=== PATIENT | female | born 1940 | race African-American/Black ===

== ENCOUNTER → 2016-09-12 | Outpatient (CLI) | payer MEDICARE, OTHER ==
[2015-04-11 15:41] VITALS: BP 175/84
[~2016-09-12] MED LIST: ALLO100T PO; ASPI-482 PO; ASPI81TA9 PO; Aspirin PO; CALCITROL; CRESTOR5 MG PO; DOCU100C PO; DULO60CA6 PO; EZET10TA3 PO; FERR325T31 PO; FURO-68 PO; FURO40SO PO; HYDR-2762 PO; Hydralazine Hcl PO; ISOS120T2 PO; LABE100T3 PO; LOSA50TA6 PO; RANI300C PO; TRAZ50TA15 PO
--- NOTE | 2016-09-12 10:09 | KCIC ---
Two-view chest. Indication:Reason For StudyReason: CHRONIC COUGH / Spl. Instructions: / History: FINDINGS: Heart size is normal. Pulmonary vasculature is within normal limits. No pleural effusion or consolidating infiltrate. No pneumothorax. The thoracic aorta appears tortuous. IMPRESSION: No evidence for heart failure or pneumonia. Electronically signed by: Sergio Lane (Sep 12, 2016 10:08:13)
== END | disposition home or self-care (01) ==
LOC: KCIC 09:30
PROVIDERS: ATTEND Family Medicine
DX: R05 Cough (principal)
CPT/HCPCS: 71020

== ENCOUNTER 2016-09-29 17:10 | Inpatient (IN) | payer MEDICARE, OTHER ==
[~2016-09-29] VITALS: Ht 170.2 cm; Wt 80.9 kg
--- NOTE | 2016-09-29 17:32 | ED.ADGEN ---
Past Medical History Past Medical History: COPD, Diabetes-Type II, High Cholesterol, Heart Disease, Hypertension, Renal Disease Past Surgical History: Knee Replacement Additional Past Surgical Histo: bilat knee, R FA nerve graft Alcohol Use: None Drug Use: None Adult General Chief Complaint Chief Complaint: NEURO SYMPTOMS/DEFICITS HPI HPI Patient is a 76 year old female brought to emergency department by EMS as a code stroke. At 4:50 PM (20 min prior to arrival in the ED) the patient was at home getting her hair braided when she suddenly fell over forward unresponsive. EMS reports initially she was unresponsive except for to painful stimuli but them. She has been slowly becoming more alert. At the point of my interview the patient will follow directions. She will also shrug her shoulders and shake her head yes or no. She makes no attempt at speech. She was taken immediately to CT upon arrival. Review of Systems Review of Systems Constitutional: Denies fever or chills. [] Eyes: Denies change in visual acuity. [] HENT: Denies nasal congestion or sore throat. [] Respiratory: Denies cough or shortness of breath. [] Cardiovascular: Denies chest pain or edema. [] GI: Denies abdominal pain, nausea, vomiting, bloody stools or diarrhea. [] : Denies dysuria. [] Musculoskeletal: Denies back pain or joint pain. [] Integument: Denies rash. [] Neurologic: Denies headache, focal weakness or sensory changes. [] Endocrine: Denies polyuria or polydipsia. [] Lymphatic: Denies swollen glands. [] Psychiatric: Denies depression or anxiety. [] Current Medications Current Medications Current Medications Medications (Trade) Dose Ordered Sig/Wilberto Start Time Stop Time Status Last Admin Dose Admin Aspirin (Children'S Aspirin) 324 mg 1X ONCE 09/29/16 18:00 09/29/16 18:01 DC 09/29/16 18:00 324 MG Sodium Chloride (Iv Sodium Chloride 0.9% 1000ml Bag) 1,000 ml @ 1,000 mls/hr Q1H 09/29/16 17:45 09/29/16 18:44 DC 09/29/16 18:00 1,000 MLS/HR Allergies Allergies Allergies Coded Allergies Type Severity Reaction Last Updated Verified lisinopril Allergy Intermediate COUGH 03/12/14 Yes Physical Exam Physical Exam Constitutional: Well developed, well nourished, no acute distress, non-toxic appearance. [] HENT: Normocephalic, atraumatic, bilateral external ears normal, oropharynx moist, no oral exudates, nose normal. [] Eyes: PERRLA, EOMI, conjunctiva normal, no discharge. [] Neck: Normal range of motion, no tenderness, supple, no stridor. [] Cardiovascular:Heart rate regular rhythm, no murmur [] Lungs & Thorax: Bilateral breath sounds clear to auscultation [] Abdomen: Bowel sounds normal, soft, no tenderness, no masses, no pulsatile masses. [] Skin: Warm, dry, no erythema, no rash. [] Back: No tenderness, no CVA tenderness. [] Extremities: No tenderness, no cyanosis, no clubbing, ROM intact, no edema. [] Neurologic: Alert, patient has varying degrees and locations of flaccidness. Initially she had complete right-sided paralysis but shortly after arrival that switch to a left-sided paralysis. Patient makes no attempt at speech does follow directions and will shake her head and from her shoulders in response to my questions. [] Psychologic: Affect normal, judgement normal, mood normal. [] Current Patient Data Vital Signs Vital Signs Date Time Temp Pulse Resp B/P Pulse Ox O2 Delivery O2 Flow Rate FiO2 09/29/16 17:41 67 20 134/73 98 Room Air 09/29/16 17:10 98.6 98.6 Lab Values Laboratory Tests Test 09/29/16 17:25 White Blood Count 5.8x10^3/uL (4.0-11.0) Red Blood Count 4.45x10^6/uL (3.50-5.40) Hemoglobin 11.4g/dL (12.0-15.5) L Hematocrit 35.9% (36.0-47.0) L Mean Corpuscular Volume 81fL (79-100) Mean Corpuscular Hemoglobin 26pg (25-35) Mean Corpuscular Hemoglobin Concent 32g/dL (31-37) Red Cell Distribution Width 13.7% (11.5-14.5) Platelet Count 149x10^3/uL (140-400) Neutrophils (%) (Auto) 53% (31-73) Lymphocytes (%) (Auto) 28% (24-48) Monocytes (%) (Auto) 12% (0-9) H Eosinophils (%) (Auto) 7% (0-3) H Basophils (%) (Auto) 1% (0-3) Neutrophils # (Auto) 3.1x10^3uL (1.8-7.7) Lymphocytes # (Auto) 1.6x10^3/uL (1.0-4.8) Monocytes # (Auto) 0.7x10^3/uL (0.0-1.1) Eosinophils # (Auto) 0.4x10^3/uL (0.0-0.7) Basophils # (Auto) 0.0x10^3/uL (0.0-0.2) Prothrombin Time 13.8SEC (11.7-14.0) Prothrombin Time INR 1.1 (0.8-1.1) PTT 30SEC (24-38) Sodium Level 144mmol/L (136-145) Potassium Level 3.1mmol/L (3.5-5.1) L Chloride Level 104mmol/L (98-107) Carbon Dioxide Level 31mmol/L (21-32) Anion Gap 9 (6-14) Blood Urea Nitrogen 15mg/dL (7-20) Creatinine 1.9mg/dL (0.6-1.0) H Estimated GFR (Cockcroft-Gault) 31.1 BUN/Creatinine Ratio 8 (6-20) Glucose Level 97mg/dL (70-99) Calcium Level 10.2mg/dL (8.5-10.1) H Total Bilirubin 0.5mg/dL (0.2-1.0) Aspartate Amino Transferase (AST) 16U/L (15-37) Alanine Aminotransferase (ALT) 16U/L (14-59) Alkaline Phosphatase 52U/L (46-116) Troponin I Quantitative < 0.017ng/mL (0.000-0.055) Total Protein 7.4g/dL (6.4-8.2) Albumin 3.5g/dL (3.4-5.0) Albumin/Globulin Ratio 0.9 (1.0-1.7) L Laboratory Tests 09/29/16 17:25 Laboratory Tests 09/29/16 17:25 EKG EKG EKG interpreted by me, normal sinus rhythm, 68 beats for minute, leftward axis, no ST segment elevation, ST depression in V3, V4, V5, and V6. There is no significant change when compared with previous EKG of May 2014 [] Radiology/Procedures Radiology/Procedures Chest x-ray interpreted by me, no acute cardiopulmonary process. PROCEDURE CT of the head without contrast HISTORY Code stroke. Unresponsive. TECHNIQUE Standard noncontrast images are obtained. Exposure: One or more of the following individualized dose reduction techniques were utilized for this exam: 1. Automated exposure control. 2. Adjustment of the mA and/or kV according to patient size. 3. Use of iterative reconstruction technique. COMPARISON Prior study not available for review. FINDINGS No evidence of acute intracranial hemorrhage or abnormal extra-axial fluid collection. No mass effect or midline shift There is generalized enlargement of ventricles and sulci compatible with atrophy. White matter low density bilaterally, and some low density in the vel, is typically due to chronic small vessel ischemic disease in a patient of this age. The orbits appear unremarkable. The partially visualized sinuses are clear. No evidence of a depressed skull fracture. There are intracranial arterial calcifications. IMPRESSION 1. No evidence of acute intracranial abnormality. 2. Generalized atrophy. 3. White matter disease, is typically due to chronic small vessel ischemia. 4. Critical results communicated by telephone to Dr. Braun at 1747 hours on September 29, 2016. Electronically signed by: Brayan Blackwood MD (Sep 29, 2016 17:40:59) DICTATED and SIGNED BY: BRAYAN BLACKWOOD MD DATE: 09/29/16 1740 CC: JOSE A FOREMAN; GOLDIE BRAUN MD ~[] Course & Med Decision Making Course & Med Decision Making Pertinent Labs and Imaging studies reviewed. (See chart for details) 1720 - patient's deficits have changed from the right side to the left side. She maintains right-sided weakness but is weaker on the left. Her NIH H scan with the exception of being consciousness is almost smith-positive with a score of 26. Awaiting CT results. 1900 - all the patient's deficits have completely resolved. Patient cannot explain to me what happened other than to state that she felt warm and then did not know what was going on. She does seem to still have a little bit of confusion but I also suspect she may be holding back a bit. I suspect there is an emotional or perhaps psychological component to what happened today. She is also displaying some signs of possible dementia with difficulty remembering names of family and friends that come into the room. Initially she was demanding to be discharged home. However, she does have an equivocal urinary tract infection and did have significant deficits upon arrival. Consequent I, we will give her dose of Rocephin and admitted to the hospital. 1945 - I spoke with Dr. Mcknight who is covering for Dr. Peter regarding admission. [] Dragon Disclaimer Dragon Disclaimer This electronic medical record was generated, in whole or in part, using a voice recognition dictation system. GOLDIE BRAUN MD Sep 29, 2016 17:32
[2016-09-29 17:39] LABS: BASO % 1 % (0-3); EOS % 7 % (0-3); HEMATOCRIT 35.9 % (36.0-47.0); HEMOGLOBIN 11.4 g/dL (12.0-15.5); LYMPH # 1.6 x10^3/uL (1.0-4.8); LYMPH % 28 % (24-48); MEAN CORPUSCULAR HEMOGLOBIN 26 pg (25-35); MEAN CORPUSCULAR HGB CONC 32 g/dL (31-37); MEAN CORPUSCULAR VOLUME 81 fL (79-100); MONO % 12 % (0-9); NEUT % 53 % (31-73); PLATELET COUNT 149 x10^3/uL (140-400); RED BLOOD COUNT 4.45 x10^6/uL (3.50-5.40); RED CELL DISTRIBUTION WIDTH 13.7 % (11.5-14.5); WHITE BLOOD COUNT 5.8 x10^3/uL (4.0-11.0)
--- NOTE | 2016-09-29 17:42 | RAD ---
PROCEDURE CT of the head without contrast HISTORY Code stroke. Unresponsive. TECHNIQUE Standard noncontrast images are obtained. Exposure: One or more of the following individualized dose reduction techniques were utilized for this exam: 1. Automated exposure control. 2. Adjustment of the mA and/or kV according to patient size. 3. Use of iterative reconstruction technique. COMPARISON Prior study not available for review. FINDINGS No evidence of acute intracranial hemorrhage or abnormal extra-axial fluid collection. No mass effect or midline shift There is generalized enlargement of ventricles and sulci compatible with atrophy. White matter low density bilaterally, and some low density in the vel, is typically due to chronic small vessel ischemic disease in a patient of this age. The orbits appear unremarkable. The partially visualized sinuses are clear. No evidence of a depressed skull fracture. There are intracranial arterial calcifications. IMPRESSION 1. No evidence of acute intracranial abnormality. 2. Generalized atrophy. 3. White matter disease, is typically due to chronic small vessel ischemia. 4. Critical results communicated by telephone to Dr. Braun at 1747 hours on September 29, 2016. Electronically signed by: Brayan Blackwood MD (Sep 29, 2016 17:40:59)
[2016-09-29 17:45] LABS: INR 1.1 (0.8-1.1); PROTHROMBIN TIME PATIENT 13.8 SEC (11.7-14.0)
[2016-09-29] MEDS ORDERED: IV NORMAL SALINE 1000ML BAG 1,000 ML IV SCH (17:45)
--- NOTE | 2016-09-29 17:46 | EKG ---
[facility] [address] [place] [address] Test Date: 2016-09-29 Test Time: 17:35:00 Pat Name: LANETTE KING Department: Room: Gender: F Clinical Lab Specialist: : 1940 Requested By: GOLDIE VARNER Order Number: [id number] Reading MD: Measurements Intervals [place] Rate: 68 P: 39 MO: 216 QRS: -6 QRSD: 120 T: 169 QT: 428 QTc: 455 Interpretive Statements SINUS RHYTHM LEFTWARD AXIS QRS(T) CONTOUR ABNORMALITY CONSISTENT WITH ANTEROSEPTAL INFARCT AGE UNDETERMINED ST & T ABNORMALITY, CONSIDER ANTEROLATERAL ISCHEMIA OR LEFT VENTRICULAR STRAIN T ABNORMALITY IN ANTERIOR LEADS INFEROLATERAL LEADS ABNORMAL ECG RI6.01 No previous ECG available for comparison
[2016-09-29] MEDS ORDERED: ASPIRIN CHEWABLE 81 MG TABLET. PO ONE (18:00)
[2016-09-29 18:04] LABS: CALCIUM 10.2 mg/dL (8.5-10.1); CREATININE 1.9 mg/dL (0.6-1.0); GFR 31.1; POTASSIUM 3.1 mmol/L (3.5-5.1)
[2016-09-29 18:10] LABS: ALBUMIN 3.5 g/dL (3.4-5.0); ALBUMIN/GLOBULIN RATIO 0.9 (1.0-1.7); TOTAL BILIRUBIN 0.5 mg/dL (0.2-1.0); TOTAL PROTEIN 7.4 g/dL (6.4-8.2)
[2016-09-29 18:24] LABS: BILIRUBIN,URINE NEGATIVE (NEG); GLUCOSE,URINE NEGATIVE (NEG); NITRITE,URINE NEGATIVE (NEG); PH,URINE 5.5; PROTEIN,URINE NEGATIVE (NEG-TRACE); UROBILINOGEN,URINE 0.2 mg/dL (0.2 mg/dL)
[2016-09-29 18:32] LABS: BARBITURATES NEG (NEG); BENZODIAZEPINES NEG (NEG); CANNABINOIDS NEG (NEG); COCAINE NEG (NEG); ETHANOL, URINE NEG (NEG); METHADONE NEG (NEG); OPIATES NEG (NEG); PHENCYCLIDINE NEG (NEG)
[2016-09-29 18:44] LABS: BACTERIA,URINE MANY /HPF (0-FEW); RBC,URINE 0 /HPF (0-2); SQUAMOUS EPITHELIAL CELL,UR FEW /LPF
[2016-09-29] MEDS ORDERED: CEFTRIAXONE 1GM IVPB FOR OMNI 50 ML IV ONE (19:15)
--- NOTE | 2016-09-29 19:42 | ACF ---
Admission Forms Criteria NEUROLOGY GRG Clinical Indications for Admission to Inpatient Care (Place ' X' for any and all applicable criteria): Hospital admission is needed for appropriate care of the patient because of ANY ONE of the following: [ ]I. New-onset or worsening altered mental status remaining after emergency or observation level care (as appropriate) (9)(10)(11) [ ]II. Severe LADLE WATCHER infections or inflammatory conditions, including ANY ONE of the following(1)(2)(3): [ ]a) Intracranial abscess [ ]b) Spinal abscess or myelitis [ ]c) Tuberculous or other nonbacterial, nonviral LADLE WATCHER infection(8) [ ]III. Encephalitis(1)(2)(3) [ ]IV. Status epilepticus or repetitive seizures not controlled with emergent treatment [A] (7)(8) [ ]V. Transient alteration in consciousness with high-risk etiology; examples include (12)(13): [ ]a) Cardiovascular source [ ]b) Cataplexy [ ]. Cerebral aneurysm requiring ANY ONE of the following(14): [ ]a) IV antihypertensives or vasoactive agents [ ]b) Sedation and analgesia for suspected leak [ ]c) Need for external ventricular drainage and cerebral perfusion pressure monitoring [ ]d) Emergent evaluation to determine need for surgical clipping or endovascular coiling by interventional radiology. If surgery is required ( Also use Craniotomy, Supratentorial, for Surgery of Bleeding Intracranial Aneurysm (for bleeding aneurysm) or Craniotomy, Supratentorial (for nonbleeding aneurysm) as appropriate. [ ]VII. Altered mental status that is severe or persistent(16) [ ]VIII New-onset severe neurologic findings requiring inpatient care; examples include: [ ]a) Papilledema [ ]b) Cerebral edema [ ]c) Mass effect on imaging [X]IX. New-onset severe neurologic symptom requiring inpatient care indicated by ANY ONE of the following: [ ]a) Aphasia(15) [ ]b) Weakness (grade 3 or less) [X]c) Paralysis (eg, hemiplegia) [ ]d) Spasticity(16) [ ]e) Ataxia(17) [ ]f) Amnesia(18) [ ]g) Involuntary movements(19) [ ]h) Vertigo [ ]i) Other severe neurologic symptom not treatable at alternative level of care (eg, observation care) [ ]X. Guillain-[place] syndrome(20) [ ]XI. Myasthenia gravis crisis or inpatient monitoring need as indicated by ANY ONE of the following(21): [ ]a) Inadequate airway protection [ ]b) Respiratory insufficiency requiring intubation or inpatient. monitoring [ ]c) Progressive dysphagia with failure to thrive [ ]d) Intensive treatment (eg, course of plasmapheresis) with inadequate outpatient situation to monitor patients status [ ]XII. Multiple sclerosis or other acute demyelinating disease requiring inpatient care as indicated by ANY ONE of the following (22)(23): [ ]a) Acute severe deterioration requiring inpatient treatment (eg, IV steroids, plasmapheresis, close observation) [ ]b) Acute complication requiring inpatient care (eg, sepsis, severe decubitus, aspiration) [ ]XIII. Intracranial hypertension (eg, pseudotumor cerebri) requiring inpatient care (eg, acute visual loss, inadequate oral intake) (24) [ ]XIV.Parkinson disease requiring inpatient care (Also use Optimal Recovery Care Criteria or General Recovery Criteria as appropriate) indicated by ANY ONE of the following(25): [ ]a) Infection (eg, aspiration pneumonia) not treatable at alternative level of care [ ]b) Volume depletion not responsive to emergency and observation care treatment (as appropriate) [ ]c) Life-threatening agitation or psychotic behavior not treatable on emergency, observation care, or alternative level (eg, residential) basis [ ]d) Severe medication withdrawal effects (eg, freezing, neuroleptic malignant syndrome) not responsive to emergency and observation care treatment (as appropriate) [ ]e) Other severe manifestation not treatable at alternative level of care [ ]XV.Amyotrophic lateral sclerosis with inpatient care needs as indicated by ANY ONE of the following(26): [ ]a) Acute complications requiring inpatient care (Use Optimal Recovery Care Criteria or General Recovery Criteria as appropriate); examples include: [ ]i) Aspiration pneumonia [ ]ii) Sepsis [ ]b) Dehydration or hypovolemia (not responsive to emergency and observation care treatment as appropriate) AND artificial support desired [ ]c) Inadequate airway protection AND artificial support desired [ ]d) Severe ventilatory insufficiency AND artificial support desired [ ]XVI.Severe myopathy, neuropathy, or other neuromuscular disease as indicated by ANY ONE of the following: [ ]a) New-onset severe diffuse weakness (eg, strength 3/5 or less) [ ]b) Severe dysphagia [ ]c) Dyspnea at rest or with minimal exertion (new) [ ]d) Inadequate airway protection [ ]e) Inadequate ventilation as indicated by ANY ONE of the following : [ ]i) Partial pressure of carbon dioxide greater than 44 mm Hg (5.9 kPa) (new) [ ]ii) Reduced peak expiratory flow rate (new) [ ]iii) Vital capacity less than 50% of predicted ( less than 15 mL/kg) [ ]iv) Peak inspiratory force less negative than -30 cm H20 (-2942 Pa) [ ]XVII.Complications of congenital or degenerative disease (eg, infection, seizures, dehydration, injury) not responsive to emergency and observation care treatment (as appropriate ) [C](16)(29)(30) [ ]XVIII.Suspected or confirmed nerve or muscle toxic injury, including ANY ONE of the following: [ ]a) Rhabdomyolysis(31) [ ]b) Botulism(32) [ ]c) Other severe toxin-induced sign or symptom [ ]XIX. Neurologic trauma requiring inpatient treatment (medical) indicated by ANY ONE of the following(33)(34): [ ]a) Vital signs or neurologic signs more frequently than every 4 hours [ ]b) Hyperosmolar therapy [ ]c) Respiratory monitoring [ ]d) Intracranial pressure monitoring and treatment [ ]e) Stabilization and immobilization device placement (eg, braces, body jacket) [ ]f) Intubation & mechanical ventilation for airway protection or therapeutic hyperventilation [ ]g) Other treatment or monitoring needed that requires inpatient level of care [ ]XX.Complications of neurologic devices (eg, ventricular shunt, neurostimulator) requiring ANY ONE of the following(35)(36): [ ]a) IV antibiotics with monitoring while awaiting culture results [ ]b) Monitoring for hydrocephalus [ ]XXI Vasculitis with ANY ONE of the following(4)(5): [ ]a) Altered mental status [ ]b) Psychosis [ ]c) Seizures [ ]XXII. Neurology condition and ALL of the following: [ ]a) Symptom or finding for which emergency and observation care have failed or are not considered appropriate (Use General Criteria: Observation Care as appropriate) [ ]b) Presence of ANY ONE of the following: [ ]i) A General Admission Criteria [ ]ii A Pediatric General Admission Criteria The original [facility] content created by Ann Servin has been revised. The portions of the content which have been revised are identified through the use of italic text or in bold, and [facility] has neither reviewed nor approved the modified material. All other unmodified content is copyright [facility] Please see references footnoted in the original [facility] edition 2016 Admission Criteria Met?: Yes MICHELLE HIGH Sep 29, 2016 19:42
[2016-09-29] MEDS ORDERED: ACETAMINOPHEN 325 MG TABLET. PO PRN (19:45)
[2016-09-29] MEDS ORDERED: ONDANSETRON PF 4 MG/2 ML VIAL. IV PRN (19:45)
[2016-09-29] MEDS ORDERED: POTASSIUM CHLORIDE 20 MEQ TABLET.ER. PO ONE (20:00)
[2016-09-29 20:13] VITALS: BP 138/82
[2016-09-29] MEDS: IV NORMAL SALINE 1000ML BAG 1,000 ML IV SCH (20:41)
[2016-09-29 23:00] VITALS: BP 142/77
[2016-09-29] MEDS ORDERED: CHOL100013 PO (23:57)
[2016-09-29] MEDS ORDERED: EZET10TA3 PO (23:57)
[2016-09-29] MEDS ORDERED: HYDR-2869 PO (23:57)
[2016-09-29] MEDS ORDERED: CARV12.52 PO (23:57)
[2016-09-29] MEDS ORDERED: ASPI81TA2 PO (23:57)
[2016-09-30 02:51] VITALS: BP_SYST 130; BP_SYST 145; BP_DIAS 75; BP_DIAS 86
[2016-09-30 07:00] VITALS: BP 149/84
--- NOTE | 2016-09-30 08:36 | RAD ---
Portable chest, 09/29/2016: History: Altered mental status Comparison is made to a study from 09/12/2016. There has been a previous median sternotomy. The heart is mildly enlarged. There is calcific plaquing and tortuosity of the thoracic aorta. The pulmonary vascularity is normal. No pulmonary infiltrates are seen. There is no evidence of pleural fluid. IMPRESSION: 1. Cardiomegaly and aortic atherosclerosis. 2. No acute cardiopulmonary abnormality is detected.
[2016-09-30] MEDS: IV NORMAL SALINE 1000ML BAG 1,000 ML IV SCH (08:42)
[2016-09-30] MEDS ORDERED: DULOXETINE HCL 30 MG CAPSULE.DR. PO ONE (09:00)
[2016-09-30 10:20] LABS: BASO % 1 % (0-3); EOS % 5 % (0-3); HEMATOCRIT 35.3 % (36.0-47.0); HEMOGLOBIN 11.4 g/dL (12.0-15.5); LYMPH # 1.8 x10^3/uL (1.0-4.8); LYMPH % 24 % (24-48); MEAN CORPUSCULAR HEMOGLOBIN 26 pg (25-35); MEAN CORPUSCULAR HGB CONC 32 g/dL (31-37); MEAN CORPUSCULAR VOLUME 79 fL (79-100); MONO % 11 % (0-9); NEUT % 60 % (31-73); PLATELET COUNT 155 x10^3/uL (140-400); RED BLOOD COUNT 4.48 x10^6/uL (3.50-5.40); RED CELL DISTRIBUTION WIDTH 13.8 % (11.5-14.5); WHITE BLOOD COUNT 7.3 x10^3/uL (4.0-11.0)
--- NOTE | 2016-09-30 10:25 | PDOC ---
Provider Note Provider Note Pt seen.H&P dictated. #[id number] CLEMENTINE GARCIA MD Sep 30, 2016 10:25
[2016-09-30 10:41] LABS: CALCIUM 9.8 mg/dL (8.5-10.1); CREATININE 1.4 mg/dL (0.6-1.0); GFR 44.2; POTASSIUM 3.5 mmol/L (3.5-5.1)
[2016-09-30 10:42] LABS: CHOLESTEROL/HDL RATIO 2.6
[2016-09-30 11:00] VITALS: BP 152/81
[2016-09-30] MEDS: CARVEDILOL 12.5 MG TABLET. PO SCH ×2 (11:00→18:21)
--- NOTE | 2016-09-30 11:38 | PDOC2 ---
CARDIAC CONSULT DATE OF CONSULT Date of Consult DATE: 09/30/16 TIME: 11:26 REASON FOR CONSULT Reason for Consult: CAD, syncope REFERRING PHYSICIAN Referring Physician: [place] SOURCE Source: Chart review HISTORY OF PRESENT ILLNESS HISTORY OF PRESENT ILLNESS This is a pleasant 76 yo female admitted for complains of lightheadedness. This occurred in the evening time. She was sitting up and talking to her son while she having her hair done with her head upright with no hyperextension or flexion of her neck when she felt warm, light headed then she stopped communicating to her son. She was also clearing her throat at that time. She was slightly moaning at that time and she was immediately laid down on a bed or cot and it took about 20 minutes before she got back to her regular mentation. Denies any CP, SOA, or changes to her activity tolerance although she is mainly sedentary. She does have occasional palpitations but she has not had episodes like this before or recently. She has several antiHTN meds which she took that morning including her lasix but she did not have adequate fluid intake likely around 0.5 L approximate throughout the day. To add she denies any visual, auditory disturbances and no unilateral weakness nor facial drooping was noted and more importantly no incontinence. 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 PAST MEDICAL HISTORY Cardiovascular: CAD, CHF (cardiomyopathy), HTN, Hyperlipidemia, Other Pulmonary: No pertinent hx CENTRAL NERVOUS SYSTEM: CVA GI: GERD, Other (hiatal hernia) Hepatobiliary: No pertinent hx Psych: No pertinent hx Musculoskeletal: Osteoarthritis Rheumatologic: Gout Infectious disease: No pertinent hx ENT: No pertinent hx Endocrine: Hypothyroidism, Other (left thyroid nodules) PAST SURGICAL HISTORY Past Surgical History: CABG (x4), Total knee replacement (bilateral), Tubal Ligation FAMILY HISTORY Family History noncontributory SOCIAL HISTORY Smoke: No ALCOHOL: none Drugs: None Lives: with Family CURRENT MEDICATIONS CURRENT MEDICATIONS Current Medications Medications (Trade) Dose Ordered Sig/Wilberto Route PRN Reason Start Time Stop Time Status Last Admin Dose Admin Sodium Chloride (Iv Sodium Chloride 0.9% 1000ml Bag) 1,000 ml @ 1,000 mls/hr Q1H IV 09/29/16 17:45 09/29/16 18:44 DC 09/29/16 18:00 Aspirin 324 mg 324 mg 1X ONCE PO 09/29/16 18:00 09/29/16 18:01 DC 09/29/16 18:00 Ceftriaxone Sodium 50 ml @ 100 mls/hr 1X ONCE IV 09/29/16 19:15 09/29/16 19:44 DC 09/29/16 19:19 Sodium Chloride (Iv Sodium Chloride 0.9% 1000ml Bag) 1,000 ml @ 75 mls/hr [id number] IV 09/29/16 20:00 09/30/16 08:42 Potassium Chloride (Klor-Con) 40 meq 1X ONCE PO 09/29/16 20:00 09/29/16 20:01 DC 09/29/16 20:32 ALLERGIES ALLERGIES: Coded Allergies: lisinopril (Verified Allergy, Intermediate, COUGH, 03/12/14) ROS Review of System 14 point ROS evaluated with pertinent positives noted per HPI PHYSICAL EXAM General: Alert, Oriented X3, Cooperative, No acute distress HEENT: Atraumatic, Mucous membr. moist/pink Lungs: Clear to auscultation, Other (basilar expiratory wheeze) Heart: Regular rate (SR), Normal S1, Normal S2, Other (3/6 systolic murmur to LLS and SHAYLA border) Abdomen: Soft, No tenderness Extremities: No cyanosis, No edema Skin: No breakdown, No significant lesion Neuro: Normal speech, Sensation intact Psych/Mental Status: Mental status NL, Mood NL MUSCULOSKELETAL: Osteoarthritic changes both hands VITALS VITALS Vital Signs Date Time Temp Pulse Resp B/P Pulse Ox O2 Delivery O2 Flow Rate FiO2 09/30/16 07:00 96.7 77 18 149/84 96 Room Air 96.7 LABS Lab: Laboratory Tests Test 09/29/16 17:25 09/29/16 18:15 09/29/16 20:48 09/30/16 09:45 White Blood Count 5.8x10^3/uL (4.0-11.0) 7.3x10^3/uL (4.0-11.0) Red Blood Count 4.45x10^6/uL (3.50-5.40) 4.48x10^6/uL (3.50-5.40) Hemoglobin 11.4g/dL (12.0-15.5) 11.4g/dL (12.0-15.5) Hematocrit 35.9% (36.0-47.0) 35.3% (36.0-47.0) Mean Corpuscular Volume 81fL (79-100) 79fL (79-100) Mean Corpuscular Hemoglobin 26pg (25-35) 26pg (25-35) Mean Corpuscular Hemoglobin Concent 32g/dL (31-37) 32g/dL (31-37) Red Cell Distribution Width 13.7% (11.5-14.5) 13.8% (11.5-14.5) Platelet Count 149x10^3/uL (140-400) 155x10^3/uL (140-400) Neutrophils (%) (Auto) 53% (31-73) 60% (31-73) Lymphocytes (%) (Auto) 28% (24-48) 24% (24-48) Monocytes (%) (Auto) 12% (0-9) 11% (0-9) Eosinophils (%) (Auto) 7% (0-3) 5% (0-3) Basophils (%) (Auto) 1% (0-3) 1% (0-3) Neutrophils # (Auto) 3.1x10^3uL (1.8-7.7) 4.4x10^3uL (1.8-7.7) Lymphocytes # (Auto) 1.6x10^3/uL (1.0-4.8) 1.8x10^3/uL (1.0-4.8) Monocytes # (Auto) 0.7x10^3/uL (0.0-1.1) 0.8x10^3/uL (0.0-1.1) Eosinophils # (Auto) 0.4x10^3/uL (0.0-0.7) 0.3x10^3/uL (0.0-0.7) Basophils # (Auto) 0.0x10^3/uL (0.0-0.2) 0.0x10^3/uL (0.0-0.2) Prothrombin Time 13.8SEC (11.7-14.0) Prothromb Time International Ratio 1.1 (0.8-1.1) Activated Partial Thromboplast Time 30SEC (24-38) Sodium Level 144mmol/L (136-145) 145mmol/L (136-145) Potassium Level 3.1mmol/L (3.5-5.1) 3.5mmol/L (3.5-5.1) Chloride Level 104mmol/L (98-107) 108mmol/L (98-107) Carbon Dioxide Level 31mmol/L (21-32) 31mmol/L (21-32) Anion Gap 9 (6-14) 6 (6-14) Blood Urea Nitrogen 15mg/dL (7-20) 14mg/dL (7-20) Creatinine 1.9mg/dL (0.6-1.0) 1.4mg/dL (0.6-1.0) Estimated GFR (Cockcroft-Gault) 31.1 44.2 BUN/Creatinine Ratio 8 (6-20) Glucose Level 97mg/dL (70-99) 105mg/dL (70-99) Calcium Level 10.2mg/dL (8.5-10.1) 9.8mg/dL (8.5-10.1) Total Bilirubin 0.5mg/dL (0.2-1.0) Aspartate Amino Transf (AST/SGOT) 16U/L (15-37) Alanine Aminotransferase (ALT/SGPT) 16U/L (14-59) Alkaline Phosphatase 52U/L (46-116) Troponin I Quantitative < 0.017ng/mL (0.000-0.055) Total Protein 7.4g/dL (6.4-8.2) Albumin 3.5g/dL (3.4-5.0) Albumin/Globulin Ratio 0.9 (1.0-1.7) Urine Collection Type U cath Urine Color Yellow Urine Clarity Clear Urine pH 5.5 Urine Specific [place] 1.010 Urine Protein Negativemg/dL (NEG-TRACE) Urine Glucose (UA) Negativemg/dL (NEG) Urine Ketones (Stick) Negativemg/dL (NEG) Urine Blood Negative (NEG) Urine Nitrite Negative (NEG) Urine Bilirubin Negative (NEG) Urine Urobilinogen Dipstick 0.2mg/dL (0.2 mg/dL) Urine Leukocyte Esterase Trace (NEG) Urine RBC 0/HPF (0-2) Urine WBC 1-4/HPF (0-4) Urine Squamous Epithelial Cells Few/LPF Urine Bacteria Many/HPF (0-FEW) Urine Hyaline Casts Occasional/HPF Urine Opiates Screen Neg (NEG) Urine Methadone Screen Neg (NEG) Urine Barbiturates Neg (NEG) Urine Phencyclidine Screen Neg (NEG) Urine Amphetamine/Methamphetamine Neg (NEG) Urine Benzodiazepines Screen Neg (NEG) Urine Cocaine Screen Neg (NEG) Urine Cannabinoids Screen Neg (NEG) Urine Ethyl Alcohol Neg (NEG) Glucose (Fingerstick) 102mg/dL (70-99) Triglycerides Level 79mg/dL (0-150) Cholesterol Level 116mg/dL (0-200) LDL Cholesterol, Calculated 55mg/dL (0-100) VLDL Cholesterol, Calculated 16mg/dL (0-40) HDL Cholesterol 45mg/dL (40-60) Cholesterol/HDL Ratio 2.6 Thyroid Stimulating Hormone (TSH) 0.435uIU/mL (0.358-3.74) ECHOCARDIOGRAM ECHOCARDIOGRAM <Conclusion> The left ventricle is normal size. Left ventricle systolic function is moderately impaired. The Ejection Fraction is estimated at 30%. The LV shows distal septal-apical hypokinesis. There is no significant aortic valvular stenosis. Doppler and Color Flow revealed no significant aortic regurgitation. Doppler and Color Flow revealed moderate mitral regurgitation. Doppler and Color Flow revealed mild tricuspid regurgitation. The PA pressure was estimated at 46 mmHg. Doppler and Color Flow revealed mild to moderate pulmonic valvular regurgitation. There is no evidence of significant pericardial effusion. DATE: 06/03/14 1725 STRESS TEST STRESS TEST Conclusion 1. Regadenoson cardioisotope stress test showed small infarct involving the basal inferolateral wall without any significant ischemia. 2. Normal left ventricular systolic function with ejection fraction calculated at 54%. 3. Low risk for cardiovascular events. DATE: 06/06/14 1509 ASSESSMENT/PLAN ASSESSMENT/PLAN 1. Presyncope/encephalopathy: EKG SR with asymmetrical T wave inversions to anterolateral leads, no significant difference by comparison. Suspect vasovagal component with inadequate po hydration and concurrent use of multiple antiHTN. 2. CAD: CABG in the past. stable. CP free. 3. Chronic systolic CHF/cardiomyopathy: compensated 4. HTN: controlled 5. HLP: controlled 6. Hypothyroidism: controlled 7. Prerenal azotemia with CKD3: due to inadequate po hydration. 8. Dementia: CT head without acute changes but notable for atrophy 9. Hx of CVA Recommendations 1. Acute CVA being ruled out. Neurology workup ongoing 2. Unable to review any tele readings since pt currently not on monitor and will place. 3. TTE today. 4. Significant discussion in regards to hydration adequacy 5. Check orthostatic readings. 6. IVF ongoing. DC IVF once present bag completed and maintain PO hydration. Problems: YASMIN GALVEZ APRN Sep 30, 2016 11:38
--- NOTE | 2016-09-30 12:45 | RAD ---
Bilateral duplex carotid sonography History: Dizziness, lightheadedness, stroke. Duplex sonography of the cervical portion of both carotid arteries was performed. Findings: Right side: Peak systolic flow velocity of the CCA is 59 cm/sec. Peak systolic flow velocity of the ICA is 79 cm/sec. The ICA/CCA ratio is 1.33. Peak end diastolic flow velocity of the ICA is 19 cm/sec. The peak systolic velocity of the ECA is 100 cm/sec. Mild atherosclerotic plaquing is seen involving the right carotid bulb. Left side: Peak systolic flow velocity of the CCA is 92 cm/sec. Peak systolic flow velocity of the ICA is 109 cm/sec. The ICA/CCA ratio is 1.19. Peak end diastolic flow velocity of the ICA is 29 cm/sec. Peak systolic flow velocity of the ECA is 128 cm/sec. Mild atherosclerotic plaquing is seen involving the left carotid bulb. Vertebral arteries: Bilateral vertebral arteries demonstrate antegrade flow. Impression: 1. No hemodynamically significant internal carotid artery stenosis identified. Note: Stenosis calculations for Doppler studies are derived from validated velocity criteria which are known to correlate with NASCET methodology of determining stenosis.
--- NOTE | 2016-09-30 13:22 | PDOC2 ---
NEUROLOGY CONSULT Date of Admission Date of Admission DATE: 09/30/16 TIME: 13:16 Reason for Consult Reason for Consult: Syncope Referring Physician Referring Physician: Dr. Peter Source Source: Caregiver, Chart review, Patient History of Present Illness History of Present Illness The patient is a 76-year-old right-handed female who fainted yesterday. Her son witnessed it (the son with her today in the room is not the witness). There was no convulsive activity, tongue biting, or incontinence. There was prolonged postictal confusion. The patient was found to have a urinary tract infection. She does have a history of stroke from which she made a full recovery. She remembers feeling warm all over prior to the event. She feels fine now. Past Medical History Cardiovascular: CAD, HTN, NC, Hyperlipidemia Pulmonary: COPD, Other (sleep apnea) CENTRAL NERVOUS SYSTEM: Carpal Tunnel Syndrome, CVA Hepatobiliary: Cholelithiasis Musculoskeletal: Osteoarthritis Rheumatologic: Gout Renal/: Chronic renal insuff Endocrine: Diabetes (diet-controlled), Hypothyroidism Past Surgical History Past Surgical History: CABG, Total knee replacement (bilateral), Tubal Ligation , Other (right carpal tunnel) Family History Family History: No pertinent hx Social History Social History , no tobacco or alcohol Current Medications Current Medications Current Medications Sodium Chloride (Iv Sodium Chloride 0.9% 1000ml Bag) 1,000 ml @ 1,000 mls/hr Q1H IV Last administered on 09/29/16 18:00; Start 09/29/16 at 17:45; Stop at 18:44; Status DC Aspirin 324 mg 324 mg 1X ONCE PO Last administered on 09/29/16 18:00; Start at 18:00; Stop 09/29/16 at 18:01; Status DC Ceftriaxone Sodium (Rocephin 1gm Ivpb For Omni) 50 ml @ 100 mls/hr 1X ONCE IV Last administered on 09/29/16 19:19; Start 09/29/16 at 19:15; Stop 09/29/16 at 19:44; Status DC Ondansetron HCl (Zofran) 4 mg PRN Q8HRS PRN IV NAUSEA/VOMITING; Start 09/29/16 at 19:45; Stop 09/30/16 at 19:44 Acetaminophen 650 mg 650 mg PRN Q4HRS PRN PO FEVER; Start 09/29/16 at 19:45; Stop 09/30/16 at 19:44 Sodium Chloride (Iv Sodium Chloride 0.9% 1000ml Bag) 1,000 ml @ 75 mls/hr [id number] IV Last administered on 09/30/16 08:42; Start 09/29/16 at 20:00 Potassium Chloride (Klor-Con) 40 meq 1X ONCE PO Last administered on 09/29/16 20:32; Start 09/29/16 at 20:00; Stop 09/29/16 at 20:01; Status DC Allopurinol (Zyloprim) 100 mg DAILY08 PO ; Start 09/30/16 at 11:00 Aspirin (Milagro Aspirin) 325 mg DAILY PO ; Start 09/30/16 at 11:00 Carvedilol (Coreg) 12.5 mg BIDWMEALS PO ; Start 09/30/16 at 11:00 Docusate Sodium (Colace) 100 mg DAILY PO ; Start 09/30/16 at 11:00 EZETIMIBE (Zetia) 10 mg DAILY08 PO ; Start 09/30/16 at 11:00 Furosemide (Lasix) 60 mg BID92 PO ; Start 09/30/16 at 14:00 Hydralazine HCl (Apresoline) 50 mg TID PO ; Start 09/30/16 at 14:00 Acetaminophen/ Hydrocodone Bitart (Lortab 7.5/325) 1 tab BID PO ; Start 09/30/16 at 21:00 Losartan Potassium (Cozaar) 50 mg DAILY08 PO ; Start 09/30/16 at 11:00 Trazodone HCl (Desyrel) 50 mg HS PO ; Start 09/30/16 at 21:00 Vitamin D (Vitamin D3) 1,000 unit DAILY PO ; Start 09/30/16 at 11:00 Duloxetine HCl (Cymbalta) 60 mg DAILY PO neuropathy/pain; Start 09/30/16 at 11:00 Isosorbide Mononitrate (Imdur) 120 mg DAILY08 PO ; Start 09/30/16 at 11:00 Famotidine (Pepcid) 40 mg QHS PO ; Start 09/30/16 at 21:00 Atorvastatin Calcium (Lipitor) 20 mg QHS PO ; Start 09/30/16 at 21:00 Calcitriol (Rocaltrol) 0.25 mcg BID PO ; Start 09/30/16 at 11:00 Active Scripts Active Lasix (Furosemide) 40 Mg Tablet 60 Mg PO BID Reported Zetia (Ezetimibe) 10 Mg Tablet 1 Tab PO DAILY Carvedilol 12.5 Mg Tablet 1 Tab PO BID Hydralazine Hcl 50 Mg Tablet 1 Tab PO TID Aspirin 81 Mg Tab.chew 1 Tab PO DAILY Vitamin D (Cholecalciferol (Vitamin D3)) 1,000 Unit Capsule 1 Cap PO DAILY Ranitidine Hcl 300 Mg Capsule 300 Mg PO HS Trazodone Hcl 50 Mg Tablet 50 Mg PO HS Hydrocodone-Apap 7.5-325 (Hydrocodone Bit/Acetaminophen) 1 Each Tablet 1 Tab PO BID Stool Softener (Docusate Sodium) 100 Mg Capsule 100 Mg PO DAILY Zetia (Ezetimibe) 10 Mg Tablet 10 Mg PO DAILY08 Crestor (Rosuvastatin Calcium) 5 Mg Tablet 5 Mg PO HS Losartan Potassium 50 Mg Tablet 50 Mg PO DAILY08 Allopurinol 100 Mg Tablet 100 Mg PO DAILY08 Isosorbide Mononitrate Er (Isosorbide Mononitrate) 120 Mg Tab.er.24h 120 Mg PO DAILY08 [Calcitrol] 0.25 BID Cymbalta (Duloxetine Hcl) 60 Mg Capsule.dr 60 Mg PO DAILY Allergies Allergies: Coded Allergies: lisinopril (Verified Allergy, Intermediate, COUGH, 03/12/14) ROS Review of System Patient denies fevers, chills, weight loss, dyspnea, angina, abdominal pain, change in bowels, or dysuria. 14 point review of systems is negative. Physical Exam Physical Examination PHYSICAL EXAMINATION: Vital signs: see above. General appearance is normal and in no acute distress. HEENT: Normocephalic and nontraumatic. Eyes, nose, ears, and throat are unremarkable. Neck is supple. No lymphadenopathy. No bruits are heard over the carotid artery. No crepitus. Mental Status Examination: Alert. Oriented to time, place, and person. Answers questions and follows commends. Pupils are equal round and reactive to light and accommodation. Extraocular movements are intact. Visual field exam shows no defect on the direct confrontation. No motor or sensory deficits on the facial exam. Uvula in the midline and the soft palate elevated symmetrically. No deviation of the tongue to any direction. Gross hearing is normal. Shoulder shrug normal. Muscle tone is normal. Muscle strength is 5. Deep tendon reflexes are 2+ all around. Plantar reflex is with flexion response bilaterally. [id number]-xz-[id number] test performance is accurate. Alternative movements are accurate. Gait not tested. Sensory exam shows no deficits. No cerebellar signs are elicited. Vitals VITALS Vital Signs Date Time Temp Pulse Resp B/P Pulse Ox O2 Delivery O2 Flow Rate FiO2 09/30/16 11:00 98.4 71 17 152/81 96 Room Air 98.4 Labs Labs Laboratory Tests Test 09/29/16 17:25 09/29/16 18:15 09/29/16 20:48 09/30/16 09:45 White Blood Count 5.8x10^3/uL (4.0-11.0) 7.3x10^3/uL (4.0-11.0) Red Blood Count 4.45x10^6/uL (3.50-5.40) 4.48x10^6/uL (3.50-5.40) Hemoglobin 11.4g/dL (12.0-15.5) 11.4g/dL (12.0-15.5) Hematocrit 35.9% (36.0-47.0) 35.3% (36.0-47.0) Mean Corpuscular Volume 81fL (79-100) 79fL (79-100) Mean Corpuscular Hemoglobin 26pg (25-35) 26pg (25-35) Mean Corpuscular Hemoglobin Concent 32g/dL (31-37) 32g/dL (31-37) Red Cell Distribution Width 13.7% (11.5-14.5) 13.8% (11.5-14.5) Platelet Count 149x10^3/uL (140-400) 155x10^3/uL (140-400) Neutrophils (%) (Auto) 53% (31-73) 60% (31-73) Lymphocytes (%) (Auto) 28% (24-48) 24% (24-48) Monocytes (%) (Auto) 12% (0-9) 11% (0-9) Eosinophils (%) (Auto) 7% (0-3) 5% (0-3) Basophils (%) (Auto) 1% (0-3) 1% (0-3) Neutrophils # (Auto) 3.1x10^3uL (1.8-7.7) 4.4x10^3uL (1.8-7.7) Lymphocytes # (Auto) 1.6x10^3/uL (1.0-4.8) 1.8x10^3/uL (1.0-4.8) Monocytes # (Auto) 0.7x10^3/uL (0.0-1.1) 0.8x10^3/uL (0.0-1.1) Eosinophils # (Auto) 0.4x10^3/uL (0.0-0.7) 0.3x10^3/uL (0.0-0.7) Basophils # (Auto) 0.0x10^3/uL (0.0-0.2) 0.0x10^3/uL (0.0-0.2) Prothrombin Time 13.8SEC (11.7-14.0) Prothromb Time International Ratio 1.1 (0.8-1.1) Activated Partial Thromboplast Time 30SEC (24-38) Sodium Level 144mmol/L (136-145) 145mmol/L (136-145) Potassium Level 3.1mmol/L (3.5-5.1) 3.5mmol/L (3.5-5.1) Chloride Level 104mmol/L (98-107) 108mmol/L (98-107) Carbon Dioxide Level 31mmol/L (21-32) 31mmol/L (21-32) Anion Gap 9 (6-14) 6 (6-14) Blood Urea Nitrogen 15mg/dL (7-20) 14mg/dL (7-20) Creatinine 1.9mg/dL (0.6-1.0) 1.4mg/dL (0.6-1.0) Estimated GFR (Cockcroft-Gault) 31.1 44.2 BUN/Creatinine Ratio 8 (6-20) Glucose Level 97mg/dL (70-99) 105mg/dL (70-99) Calcium Level 10.2mg/dL (8.5-10.1) 9.8mg/dL (8.5-10.1) Total Bilirubin 0.5mg/dL (0.2-1.0) Aspartate Amino Transf (AST/SGOT) 16U/L (15-37) Alanine Aminotransferase (ALT/SGPT) 16U/L (14-59) Alkaline Phosphatase 52U/L (46-116) Troponin I Quantitative < 0.017ng/mL (0.000-0.055) Total Protein 7.4g/dL (6.4-8.2) Albumin 3.5g/dL (3.4-5.0) Albumin/Globulin Ratio 0.9 (1.0-1.7) Urine Collection Type U cath Urine Color Yellow Urine Clarity Clear Urine pH 5.5 Urine Specific [place] 1.010 Urine Protein Negativemg/dL (NEG-TRACE) Urine Glucose (UA) Negativemg/dL (NEG) Urine Ketones (Stick) Negativemg/dL (NEG) Urine Blood Negative (NEG) Urine Nitrite Negative (NEG) Urine Bilirubin Negative (NEG) Urine Urobilinogen Dipstick 0.2mg/dL (0.2 mg/dL) Urine Leukocyte Esterase Trace (NEG) Urine RBC 0/HPF (0-2) Urine WBC 1-4/HPF (0-4) Urine Squamous Epithelial Cells Few/LPF Urine Bacteria Many/HPF (0-FEW) Urine Hyaline Casts Occasional/HPF Urine Opiates Screen Neg (NEG) Urine Methadone Screen Neg (NEG) Urine Barbiturates Neg (NEG) Urine Phencyclidine Screen Neg (NEG) Urine Amphetamine/Methamphetamine Neg (NEG) Urine Benzodiazepines Screen Neg (NEG) Urine Cocaine Screen Neg (NEG) Urine Cannabinoids Screen Neg (NEG) Urine Ethyl Alcohol Neg (NEG) Glucose (Fingerstick) 102mg/dL (70-99) Triglycerides Level 79mg/dL (0-150) Cholesterol Level 116mg/dL (0-200) LDL Cholesterol, Calculated 55mg/dL (0-100) VLDL Cholesterol, Calculated 16mg/dL (0-40) HDL Cholesterol 45mg/dL (40-60) Cholesterol/HDL Ratio 2.6 Thyroid Stimulating Hormone (TSH) 0.435uIU/mL (0.358-3.74) Laboratory Tests Test 09/29/16 17:25 09/29/16 18:15 09/29/16 20:48 09/30/16 09:45 White Blood Count 5.8x10^3/uL (4.0-11.0) 7.3x10^3/uL (4.0-11.0) Red Blood Count 4.45x10^6/uL (3.50-5.40) 4.48x10^6/uL (3.50-5.40) Hemoglobin 11.4g/dL (12.0-15.5) 11.4g/dL (12.0-15.5) Hematocrit 35.9% (36.0-47.0) 35.3% (36.0-47.0) Mean Corpuscular Volume 81fL (79-100) 79fL (79-100) Mean Corpuscular Hemoglobin 26pg (25-35) 26pg (25-35) Mean Corpuscular Hemoglobin Concent 32g/dL (31-37) 32g/dL (31-37) Red Cell Distribution Width 13.7% (11.5-14.5) 13.8% (11.5-14.5) Platelet Count 149x10^3/uL (140-400) 155x10^3/uL (140-400) Neutrophils (%) (Auto) 53% (31-73) 60% (31-73) Lymphocytes (%) (Auto) 28% (24-48) 24% (24-48) Monocytes (%) (Auto) 12% (0-9) 11% (0-9) Eosinophils (%) (Auto) 7% (0-3) 5% (0-3) Basophils (%) (Auto) 1% (0-3) 1% (0-3) Neutrophils # (Auto) 3.1x10^3uL (1.8-7.7) 4.4x10^3uL (1.8-7.7) Lymphocytes # (Auto) 1.6x10^3/uL (1.0-4.8) 1.8x10^3/uL (1.0-4.8) Monocytes # (Auto) 0.7x10^3/uL (0.0-1.1) 0.8x10^3/uL (0.0-1.1) Eosinophils # (Auto) 0.4x10^3/uL (0.0-0.7) 0.3x10^3/uL (0.0-0.7) Basophils # (Auto) 0.0x10^3/uL (0.0-0.2) 0.0x10^3/uL (0.0-0.2) Prothrombin Time 13.8SEC (11.7-14.0) Prothromb Time International Ratio 1.1 (0.8-1.1) Activated Partial Thromboplast Time 30SEC (24-38) Sodium Level 144mmol/L (136-145) 145mmol/L (136-145) Potassium Level 3.1mmol/L (3.5-5.1) 3.5mmol/L (3.5-5.1) Chloride Level 104mmol/L (98-107) 108mmol/L (98-107) Carbon Dioxide Level 31mmol/L (21-32) 31mmol/L (21-32) Anion Gap 9 (6-14) 6 (6-14) Blood Urea Nitrogen 15mg/dL (7-20) 14mg/dL (7-20) Creatinine 1.9mg/dL (0.6-1.0) 1.4mg/dL (0.6-1.0) Estimated GFR (Cockcroft-Gault) 31.1 44.2 BUN/Creatinine Ratio 8 (6-20) Glucose Level 97mg/dL (70-99) 105mg/dL (70-99) Calcium Level 10.2mg/dL (8.5-10.1) 9.8mg/dL (8.5-10.1) Total Bilirubin 0.5mg/dL (0.2-1.0) Aspartate Amino Transf (AST/SGOT) 16U/L (15-37) Alanine Aminotransferase (ALT/SGPT) 16U/L (14-59) Alkaline Phosphatase 52U/L (46-116) Troponin I Quantitative < 0.017ng/mL (0.000-0.055) Total Protein 7.4g/dL (6.4-8.2) Albumin 3.5g/dL (3.4-5.0) Albumin/Globulin Ratio 0.9 (1.0-1.7) Urine Collection Type U cath Urine Color Yellow Urine Clarity Clear Urine pH 5.5 Urine Specific [place] 1.010 Urine Protein Negativemg/dL (NEG-TRACE) Urine Glucose (UA) Negativemg/dL (NEG) Urine Ketones (Stick) Negativemg/dL (NEG) Urine Blood Negative (NEG) Urine Nitrite Negative (NEG) Urine Bilirubin Negative (NEG) Urine Urobilinogen Dipstick 0.2mg/dL (0.2 mg/dL) Urine Leukocyte Esterase Trace (NEG) Urine RBC 0/HPF (0-2) Urine WBC 1-4/HPF (0-4) Urine Squamous Epithelial Cells Few/LPF Urine Bacteria Many/HPF (0-FEW) Urine Hyaline Casts Occasional/HPF Urine Opiates Screen Neg (NEG) Urine Methadone Screen Neg (NEG) Urine Barbiturates Neg (NEG) Urine Phencyclidine Screen Neg (NEG) Urine Amphetamine/Methamphetamine Neg (NEG) Urine Benzodiazepines Screen Neg (NEG) Urine Cocaine Screen Neg (NEG) Urine Cannabinoids Screen Neg (NEG) Urine Ethyl Alcohol Neg (NEG) Glucose (Fingerstick) 102mg/dL (70-99) Triglycerides Level 79mg/dL (0-150) Cholesterol Level 116mg/dL (0-200) LDL Cholesterol, Calculated 55mg/dL (0-100) VLDL Cholesterol, Calculated 16mg/dL (0-40) HDL Cholesterol 45mg/dL (40-60) Cholesterol/HDL Ratio 2.6 Thyroid Stimulating Hormone (TSH) 0.435uIU/mL (0.358-3.74) Images Images CT head: 1. No evidence of acute intracranial abnormality. 2. Generalized atrophy. 3. White matter disease, is typically due to chronic small vessel ischemia. Carotid Dopplers: Normal Assessment/Plan Assessment/Plan Impression: Vasovagal syncope, may have been due to urinary tract infection, without evidence of new stroke, seizure, or transient ischemic attack. The only unusual feature was the prolonged unresponsiveness. Metabolic encephalopathy that may have been due to urinary tract infection. Steward catheter placed, but now patient wants it out. Recommendation: I discussed with the nurse who agrees that Steward can be discontinued Continue monitoring Hold off on additional neurological studies such as MRI and EEG. I also discussed with the patient's son. Thank you for letting me help with the patient's care. ROSA CHO MD Sep 30, 2016 13:22
[2016-09-30] MEDS: HYDRALAZINE 50 MG TABLET PO SCH ×2 (14:00→20:50)
[2016-09-30 14:28] VITALS: BP_SYST 142; BP_SYST 146; BP_SYST 160; BP_DIAS 83; BP_DIAS 93; BP_DIAS 95
--- NOTE | 2016-09-30 16:37 | RAD ---
PROCEDURE MR Brain without contrast HISTORY Right arm weakness TECHNIQUE Sagittal and axial T1, axial and coronal T2, axial diffusion, axial FLAIR, and axial gradient echo T2 weighted images were acquired of the brain. COMPARISON None FINDINGS There is no restricted diffusion suggestive of acute infarct or cytotoxic edema. The ventricles are normal in size. There is mild generalized supratentorial atrophy. There is no intra-axial mass effect, midline shift, extra-axial fluid collection. There is no significant hemosiderin deposition of the brain parenchyma. There is moderate to severe T2 and FLAIR hyperintense signal abnormality of the supratentorial white matter bilaterally. There are old lacunar infarcts such as of the frontal deep white matter bilaterally, also of the vel and left thalamus. There is no significant abnormality of the pineal gland or pituitary gland. Cerebellar tonsils are normal in location. There is preserved marrow signal of the clivus. There is a large likely somewhat complex cyst of the dorsal central nasopharynx on the order of 2.2 cm AP x 1.2 cm transverse. IMPRESSION 1. There is no evidence of a recent infarct. Scattered T2 and FLAIR hyperintense signal abnormality of the supratentorial white matter and vel is nonspecific although probably due to chronic microvascular ischemic disease, also old lacunar infarcts as stated. 2. 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 Electronically signed by: Naseem Garcia MD (Sep 30, 2016 16:36:28)
[2016-09-30] MEDS: DOCUSATE SODIUM 100 MG CAPSULE. PO SCH (18:10)
[2016-09-30] MEDS: CALCITRIOL 0.25 MCG CAPSULE. PO SCH ×2 (18:10→20:49)
[2016-09-30] MEDS: ASPIRIN 325 MG TABLET PO SCH (18:10)
[2016-09-30] MEDS: FUROSEMIDE 40 MG TABLET. PO SCH (18:12)
[2016-09-30] MEDS: CHOLECALCIFEROL (VITAMIN D3) 1,000 UNIT TABLET PO SCH (18:13)
[2016-09-30] MEDS: DULOXETINE HCL 30 MG CAPSULE.DR. PO SCH (18:14)
[2016-09-30] MEDS: ALLOPURINOL 100 MG TABLET. PO SCH (18:16)
[2016-09-30] MEDS: ISOSORBIDE MONONITRATE ER 60 MG TAB.ER.24H. PO SCH (18:17)
[2016-09-30] MEDS: LOSARTAN POTASSIUM 50 MG TABLET. PO SCH (18:18)
[2016-09-30] MEDS: EZETIMIBE 10 MG TABLET. PO SCH (18:19)
[2016-09-30 19:00] VITALS: BP 112/58
[2016-09-30] MEDS: HYDROCODONE/APAP 7.5/325MG TABLET. PO SCH (20:51)
[2016-09-30] MEDS ORDERED: ATORVASTATIN CALCIUM 20 MG TABLET PO SCH (21:00)
[2016-09-30] MEDS ORDERED: FAMOTIDINE 20 MG TABLET. PO SCH (21:00)
[2016-09-30] MEDS ORDERED: traZODone 50 MG TABLET. PO SCH (21:00)
[2016-09-30 23:00] VITALS: BP 120/58
[2016-10-01 04:23] LABS: BASO % 0 % (0-3); EOS % 6 % (0-3); HEMATOCRIT 35.3 % (36.0-47.0); HEMOGLOBIN 11.1 g/dL (12.0-15.5); LYMPH % 35 % (24-48); MEAN CORPUSCULAR HEMOGLOBIN 26 pg (25-35); MEAN CORPUSCULAR HGB CONC 32 g/dL (31-37); MEAN CORPUSCULAR VOLUME 81 fL (79-100); MONO % 12 % (0-9); NEUT % 46 % (31-73); PLATELET COUNT 147 x10^3/uL (140-400); RED BLOOD COUNT 4.35 x10^6/uL (3.50-5.40); RED CELL DISTRIBUTION WIDTH 13.6 % (11.5-14.5); WHITE BLOOD COUNT 5.7 x10^3/uL (4.0-11.0)
[2016-10-01 04:37] LABS: CALCIUM 9.7 mg/dL (8.5-10.1); CREATININE 1.6 mg/dL (0.6-1.0); GFR 37.9; POTASSIUM 3.4 mmol/L (3.5-5.1)
[2016-10-01 07:00] VITALS: BP 125/67
--- NOTE | 2016-10-01 07:54 | HP ---
ADMIT DATE: PATIENT LOCATION: [id number] ATTENDING PHYSICIAN: Dr. Garcia. PRIMARY PHYSICIAN: Dr. Feng. REASON FOR ADMISSION TO THE HOSPITAL: Near syncopal episode and mental status changes. The patient does not recognize people surrounding her, which is kind of new. HISTORY OF PRESENT ILLNESS: The patient is a 76-year-old female who had a history of coronary artery disease, previous bypass surgery. She also had an old stroke many years ago and she is doing relatively well. She was blading her hair at home. Suddenly, she became unresponsive, did not lose pulse, but she was confused. She does not remember any events and family noticed problems with memory. The patient was brought to the hospital. CT head was negative. Was admitted to the hospital, was given aspirin and the patient's condition was improving over the next couple of hours. PAST MEDICAL HISTORY: She had a history of diabetes, coronary artery disease, hypertension, hyperlipidemia. Family says she had an old remote stroke many years back. PAST SURGICAL HISTORY: Had bilateral knee replacements, had a nerve graft, heart bypass surgery. ALLERGIES: TO LISINOPRIL, CAUSES SWELLING. MEDICATIONS: The patient is on Zetia 10 mg daily, allopurinol 100 mg daily, aspirin 81 mg daily, Coreg 12.5 mg twice a day, vitamin D daily, Colace 100 mg daily, Cymbalta 60 mg daily, Lasix 40 mg twice a day, hydralazine 50 mg 3 times a day, isosorbide 120 mg daily, losartan 50 mg daily, Zantac 300 mg daily, Crestor 5 mg daily, trazodone 50 mg at bedtime, calcitriol 0.25 twice a day. FAMILY HISTORY: Positive for hypertension. One of her daughters got heart transplant recently from [facility]. REVIEW OF SYMPTOMS: CARDIAC: No chest pain. GASTROINTESTINAL: No nausea or vomiting. NEUROLOGICAL: Some problem with memory loss after the episode, but coming down. PHYSICAL EXAMINATION: GENERAL: The patient is pleasant, not in any distress. VITAL SIGNS: Temperature 98, pulse 68, respirations 18, blood pressure 129/73, 99 on room air. HEENT: Head is atraumatic. Pupils equal. Oral cavity: No congestion. NECK: Supple. Thyroid not enlarged. JVD not elevated. CHEST: Symmetrical, scar of heart surgery. CARDIOVASCULAR: S1, S2. LUNGS: Clear to auscultation. ABDOMEN: Soft. Bowel sounds present, no mass palpable. EXTERNAL GENITALIA: No Stweard. RECTAL: Deferred. EXTREMITIES: No calf tenderness. Pulses 1+ . No focal deficits . The patient has scars of bilateral knee replacement done. NEURO: awake ,oriented x3, moving all extremities equally. remebers there was new president ,does not remember his name. knows that Mr. Rodriguez was prior president. LABORATORY DATA: Shows white count 6, hemoglobin 11, platelets 149. Electrolytes show sodium 144, potassium 3.1, chloride 104, bicarb 31, BUN 15, creatinine 1.9. LFTs were normal. TSH 0.4. Cholesterol was good. INR 1.1. Urine drug screen was negative. CT head was negative. Chest x-ray was negative. Carotid Doppler was negative. Brain MRI negative for acute stroke. FINAL IMPRESSION: 1. Near syncopal episode. 2. Confusion with memory problems after the episode. 3. Coronary artery disease, heart bypass surgery. 4. Hypertension. 5. Hyperlipidemia. 6. History of bilateral knee replacement. 7. Questionable history of remote cerebrovascular accident many years back. PLAN: At this time was to admit to the hospital, hydrate with IV fluids, monitor her kidney function and seen by Cardiology and Neurology. As above, MRI, echo, carotid Doppler. Aspirin 325 daily. Further recommendations to follow. Replace potassium and also slightly worsening kidney problems, we will repeat with fluids after hydration and see how she does. CLEMENTINE GARCIA MD DR: BETO/norma JOB#: [id number] / [id number] JOSE A Vogel
[2016-10-01] MEDS ORDERED: POTASSIUM CHLORIDE 20 MEQ TABLET.ER. PO ONE ×2 (08:45→11:00)
[2016-10-01] MEDS ORDERED: DULOXETINE HCL 30 MG CAPSULE.DR. PO ONE (09:00)
[2016-10-01] MEDS: FUROSEMIDE 40 MG TABLET. PO SCH (09:00)
[2016-10-01] MEDS: ASPIRIN 325 MG TABLET PO SCH (09:20)
[2016-10-01] MEDS: CALCITRIOL 0.25 MCG CAPSULE. PO SCH (09:20)
[2016-10-01] MEDS: DULOXETINE HCL 30 MG CAPSULE.DR. PO SCH (09:20)
[2016-10-01] MEDS: CHOLECALCIFEROL (VITAMIN D3) 1,000 UNIT TABLET PO SCH (09:22)
[2016-10-01] MEDS: ISOSORBIDE MONONITRATE ER 60 MG TAB.ER.24H. PO SCH (09:22)
[2016-10-01] MEDS: DOCUSATE SODIUM 100 MG CAPSULE. PO SCH (09:22)
[2016-10-01] MEDS: ALLOPURINOL 100 MG TABLET. PO SCH (09:22)
[2016-10-01] MEDS: CARVEDILOL 12.5 MG TABLET. PO SCH (09:23)
[2016-10-01] MEDS: EZETIMIBE 10 MG TABLET. PO SCH (09:23)
[2016-10-01] MEDS: LOSARTAN POTASSIUM 50 MG TABLET. PO SCH (09:25)
[2016-10-01 09:26] VITALS: BP 125/67
[2016-10-01] MEDS: HYDRALAZINE 50 MG TABLET PO SCH (09:26)
[2016-10-01] MEDS: HYDROCODONE/APAP 7.5/325MG TABLET. PO SCH (09:27)
[2016-10-01] MEDS ORDERED: CEPHALEXIN 250 MG CAPSULE. PO SCH (09:30)
[2016-10-01] MEDS ORDERED: CEPH-264 PO (10:19)
--- NOTE | 2016-10-01 10:24 | PDOC ---
PROGRESS NOTES Subjective Subjective pt feels better Objective Objective Vital Signs Date Time Temp Pulse Resp B/P Pulse Ox O2 Delivery O2 Flow Rate FiO2 10/01/16 09:27 20 Room Air 10/01/16 09:26 83 125/67 10/01/16 07:00 98.0 98 98.0 Intake and Output 10/01/16 07:00 Intake Total 2380 ml Output Total 1200 ml Balance 1180 ml Intake Oral 2380 ml Output Urine Total 1200 ml # Voids 4 Physical Exam Abdomen: Soft, No tenderness Heart: Regular rate (SR), Normal S1, Normal S2, Other (3/6 systolic murmur to LLS and SHAYLA border) Extremities: No cyanosis, No edema General: Alert, Oriented X3, Cooperative, No acute distress HEENT: Atraumatic, Mucous membr. moist/pink Lungs: Clear to auscultation, Other (basilar expiratory wheeze) MUSCULOSKELETAL: Osteoarthritic changes both hands Neuro: Normal speech, Sensation intact Psych/Mental Status: Mental status NL, Mood NL Skin: No breakdown, No significant lesion Diagnosis Problem List Problems Medical Problems: (1) Encephalopathy Status: Acute (2) UTI (urinary tract infection) Status: Acute Assessment Assessment Problems Medical Problems: (1) Encephalopathy Status: Acute (2) UTI (urinary tract infection) Status: Acute FINAL IMPRESSION: 1. Near syncopal episode. 2. Confusion with memory problems after the episode. 3. Coronary artery disease, heart bypass surgery. 4. Hypertension. 5. Hyperlipidemia. 6. History of bilateral knee replacement. 7. Questionable history of remote cerebrovascular accident many years back. PLAN: no stroke MRI-ve. carotid -ve. echo -done. urine c/s pending,start on keflex. d/c home today. At this time was to admit to the hospital, hydrate with IV fluids, monitor her kidney function and seen by Cardiology and Neurology. As above, MRI, echo, carotid Doppler. Aspirin 325 daily. Further recommendations to follow. Replace potassium and also slightly worsening kidney problems, we will repeat with fluids after hydration and see how she does. Problems: Plan Plan of Care Problems Medical Problems: (1) Encephalopathy Status: Acute (2) UTI (urinary tract infection) Status: Acute Comment Review of Relevant I have reviewed the following items holly (where applicable) has been applied. Labs Laboratory Tests Test 10/01/16 03:15 White Blood Count 5.7x10^3/uL (4.0-11.0) Red Blood Count 4.35x10^6/uL (3.50-5.40) Hemoglobin 11.1g/dL (12.0-15.5) Hematocrit 35.3% (36.0-47.0) Mean Corpuscular Volume 81fL (79-100) Mean Corpuscular Hemoglobin 26pg (25-35) Mean Corpuscular Hemoglobin Concent 32g/dL (31-37) Red Cell Distribution Width 13.6% (11.5-14.5) Platelet Count 147x10^3/uL (140-400) Neutrophils (%) (Auto) 46% (31-73) Lymphocytes (%) (Auto) 35% (24-48) Monocytes (%) (Auto) 12% (0-9) Eosinophils (%) (Auto) 6% (0-3) Basophils (%) (Auto) 0% (0-3) Neutrophils # (Auto) 2.6x10^3uL (1.8-7.7) Lymphocytes # (Auto) 2.0x10^3/uL (1.0-4.8) Monocytes # (Auto) 0.7x10^3/uL (0.0-1.1) Eosinophils # (Auto) 0.3x10^3/uL (0.0-0.7) Basophils # (Auto) 0.0x10^3/uL (0.0-0.2) Sodium Level 146mmol/L (136-145) Potassium Level 3.4mmol/L (3.5-5.1) Chloride Level 108mmol/L (98-107) Carbon Dioxide Level 29mmol/L (21-32) Anion Gap 9 (6-14) Blood Urea Nitrogen 18mg/dL (7-20) Creatinine 1.6mg/dL (0.6-1.0) Estimated GFR (Cockcroft-Gault) 37.9 Glucose Level 124mg/dL (70-99) Calcium Level 9.7mg/dL (8.5-10.1) Microbiology 09/29/16 Urine Culture - Preliminary, Resulted 09/29/16 Urine Culture Result 1 (GARRY) - Preliminary, Resulted Medications Current Medications Acetaminophen/ Hydrocodone Bitart (Lortab 7.5/325) 1 tab BID PO Last administered on 10/01/16 09:27; Start 09/30/16 at 21:00 Allopurinol (Zyloprim) 100 mg DAILY08 PO Last administered on 10/01/16 09:22; Start 09/30/16 at 11:00 Aspirin (Milagro Aspirin) 325 mg DAILY PO Last administered on 10/01/16 09:20; Start 09/30/16 at 11:00 Atorvastatin Calcium (Lipitor) 20 mg QHS PO Last administered on 09/30/16 20:49 ; Start 09/30/16 at 21:00 Calcitriol (Rocaltrol) 0.25 mcg BID PO Last administered on 10/01/16 09:20; Start 09/30/16 at 11:00 Carvedilol (Coreg) 12.5 mg BIDWMEALS PO Last administered on 10/01/16 09:23; Start 09/30/16 at 11:00 Cephalexin HCl (Keflex) 500 mg TID PO Last administered on 10/01/16 09:34; Start 10/01/16 at 09:30 Docusate Sodium (Colace) 100 mg DAILY PO Last administered on 10/01/16 09:22; Start 09/30/16 at 11:00 Duloxetine HCl (Cymbalta) 60 mg DAILY PO neuropathy/pain Last administered on 09:20; Start 09/30/16 at 11:00 EZETIMIBE (Zetia) 10 mg DAILY08 PO Last administered on 10/01/16 09:23; Start 09/30/16 at 11:00 Famotidine (Pepcid) 40 mg QHS PO Last administered on 09/30/16 20:50; Start 09/30/16 at 21:00 Furosemide (Lasix) 60 mg BID92 PO Last administered on 09/30/16 18:12; Start at 14:00 Hydralazine HCl (Apresoline) 50 mg TID PO Last administered on 10/01/16 09:26; Start 09/30/16 at 14:00 Isosorbide Mononitrate (Imdur) 120 mg DAILY08 PO Last administered on 10/01/16 09:22; Start 09/30/16 at 11:00 Losartan Potassium (Cozaar) 50 mg DAILY08 PO Last administered on 10/01/16 09: 25; Start 09/30/16 at 11:00 Potassium Chloride (Klor-Con) 40 meq 1X ONCE PO Last administered on 10/01/16 09:34; Start 10/01/16 at 08:45; Stop 10/01/16 at 08:46; Status DC Trazodone HCl (Desyrel) 50 mg HS PO Last administered on 09/30/16 20:50; Start 09/30/16 at 21:00 Vitamin D (Vitamin D3) 1,000 unit DAILY PO Last administered on 10/01/16 09:22 ; Start 09/30/16 at 11:00 Vitals/I & O Vital Sign - Last 24 Hours 09/30/16 09/30/16 09/30/16 09/30/16 11:00 14:28 14:28 14:28 Temp 98.4 98.4 Pulse 71 83 91 74 Resp B/P 152/81 142/93 160/95 146/83 Pulse Ox 96 O2 Delivery Room Air 09/30/16 09/30/16 09/30/16 09/30/16 18:17 18:18 18:21 19:00 Temp 98.1 98.1 Pulse 84 84 84 81 Resp 18 B/P 142/93 142/93 142/93 112/58 Pulse Ox 92 O2 Delivery Room Air 09/30/16 09/30/16 09/30/16 09/30/16 20:00 20:50 20:51 21:51 Pulse 86 Resp 18 B/P 150/89 Pulse Ox 96 96 O2 Delivery Room Air Room Air Room Air 09/30/16 10/01/16 10/01/16 10/01/16 23:00 07:00 09:22 09:23 Temp 98.1 98.0 98.1 98.0 Pulse 69 83 83 83 Resp 20 17 B/P 120/58 125/67 125/67 125/67 Pulse Ox 93 98 O2 Delivery Room Air Room Air 10/01/16 10/01/16 10/01/16 09:25 09:26 09:27 Pulse 83 83 Resp 20 B/P 125/67 125/67 O2 Delivery Room Air Intake and Output 09/30/16 09/30/16 10/01/16 15:00 23:00 07:00 Intake Total 370 ml 850 ml 1160 ml Output Total 1200 ml Balance 370 ml -350 ml 1160 ml CLEMENTINE GARCIA MD Oct 01, 2016 10:24
--- NOTE | 2016-10-01 10:29 | CARD ---
APPROVED REPORT EXAM: Two-dimensional and M-mode echocardiogram with Doppler and color Doppler. Other Information Quality : GoodHR: 78bpm Rhythm : NSR INDICATION Hypertension/HCVD RISK FACTORS Hypertension 2D DIMENSIONS RVDd2.8 (2.9-3.5cm)Left Atrium(2D)4.3 (1.6-4.0cm) IVSd1.2 (0.7-1.1cm)Aortic Root(2D)2.9 (2.0-3.7cm) LVDd4.6 (3.9-5.9cm)LVOT Diameter2.4 (1.8-2.4cm) PWd1.1 (0.7-1.1cm)LVDs3.1 (2.5-4.0cm) FS (%) 33.9 %SV62.1 ml LVEF(%)62.9 (>50%) Aortic Valve AoV Peak Serafin.157.1cm/sAoV VTI27.8cm AO Peak GR.9.9mmHgLVOT Peak Serafin.117.9cm/s AO Mean GR.6mmHgAVA (VMAX)3.41cm2 Mitral Valve MV E Qvujsaou74.8cm/sMV E Peak Gr.4mmHg MV DECEL [id number] A Ovngbfvn33.5cm/s MV E Mean Gr.2mmHgE/A Ratio0.8 MV A [id number] Pulmonary Valve PV Peak Stbhtcab373.8cm/s Tricuspid Valve TR P. Jvqwllbw587cg/sTR Peak Gr.32mmHg Pulmonary Vein S1 Goonkjdm75.2cm/sD2 Gntgsjtw55.2cm/s PVa [id number] LEFT VENTRICLE The left ventricle is normal size. There is mild concentric left ventricular hypertrophy. The left ve ntricular systolic function is normal and the ejection fraction is within normal range. The Ejection Fraction is 50-55%. There is normal LV segmental wall motion. Transmitral Doppler flow pattern is Gra de I-abnormal relaxation pattern. No left ventricle thrombus noted on this study. RIGHT VENTRICLE The right ventricle is normal size. There is normal right ventricular wall thickness. The right ventr icular systolic function is normal. ATRIA The left atrium is moderately dilated. The right atrium size is normal. The interatrial septum is int act with no evidence for an atrial septal defect or patent foramen ovale as noted on 2-D or Doppler i maging. AORTIC VALVE The aortic valve is mildly The aortic valve is trileaflet. Doppler and Color Flow revealed no signifi cant aortic regurgitation. There is no significant aortic valvular stenosis. MITRAL VALVE Mitral annular calcification is mild. The mitral valve leaflets are thickened. There is no evidence o f mitral valve prolapse. There is no mitral valve stenosis. Doppler and Color Flow revealed mild mitr al regurgitation. TRICUSPID VALVE Doppler and Color Flow revealed trace tricuspid regurgitation. The pulmonary artery systolic pressure is estimated at 35 mmHg. There is mild pulmonary hypertension. PULMONIC VALVE Doppler and Color Flow revealed mild pulmonic valvular regurgitation. There is no pulmonic valvular s tenosis. GREAT VESSELS The aortic root is normal in size. The ascending aorta is normal in size. The IVC is normal in size a nd collapses >50% with inspiration. PERICARDIAL EFFUSION There is no evidence of significant pericardial effusion. Critical Notification Critical Value: No <Conclusion> The left ventricular systolic function is normal and the ejection fraction is within normal range. Th e Ejection Fraction is 50-55%. There is normal LV segmental wall motion.
--- NOTE | 2016-10-01 11:21 | PDOC ---
PROGRESS NOTES Assessment Problems Medical Problems: (1) Encephalopathy Status: Acute (2) UTI (urinary tract infection) Status: Acute Vasovagal syncope, may have been due to urinary tract infection, without evidence of new stroke, seizure, or transient ischemic attack. The only unusual feature was the prolonged unresponsiveness. Metabolic encephalopathy that may have been due to urinary tract infection. Plan Okay for discharge Does not need EEG. I also discussed with the patient's son and . 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 Objective Vital Signs Date Time Temp Pulse Resp B/P Pulse Ox O2 Delivery O2 Flow Rate FiO2 10/01/16 09:27 20 Room Air 10/01/16 09:26 83 125/67 10/01/16 07:00 98.0 98 98.0 Intake and Output 10/01/16 06:59 Intake Total 2380 ml Output Total 1200 ml Balance 1180 ml Intake Oral 2380 ml Output Urine Total 1200 ml # Voids 4 PHYSICAL EXAM Alert. Oriented to time, place and person. PERRL. EOMI. CN: no focal findings. Muscle tone: normal. Muscle strength: 5/5 DTR: 1+ Plantar reflex: Flexor Gait: normal. Sensory exam: no abnormal findings. No cerebellar signs elicited. Review of Relevant I have reviewed the following items holly (where applicable) has been applied. Labs Laboratory Tests Test 09/29/16 17:25 09/29/16 18:15 09/29/16 20:48 09/30/16 09:45 White Blood Count 5.8x10^3/uL (4.0-11.0) 7.3x10^3/uL (4.0-11.0) Red Blood Count 4.45x10^6/uL (3.50-5.40) 4.48x10^6/uL (3.50-5.40) Hemoglobin 11.4g/dL (12.0-15.5) 11.4g/dL (12.0-15.5) Hematocrit 35.9% (36.0-47.0) 35.3% (36.0-47.0) Mean Corpuscular Volume 81fL (79-100) 79fL (79-100) Mean Corpuscular Hemoglobin 26pg (25-35) 26pg (25-35) Mean Corpuscular Hemoglobin Concent 32g/dL (31-37) 32g/dL (31-37) Red Cell Distribution Width 13.7% (11.5-14.5) 13.8% (11.5-14.5) Platelet Count 149x10^3/uL (140-400) 155x10^3/uL (140-400) Neutrophils (%) (Auto) 53% (31-73) 60% (31-73) Lymphocytes (%) (Auto) 28% (24-48) 24% (24-48) Monocytes (%) (Auto) 12% (0-9) 11% (0-9) Eosinophils (%) (Auto) 7% (0-3) 5% (0-3) Basophils (%) (Auto) 1% (0-3) 1% (0-3) Neutrophils # (Auto) 3.1x10^3uL (1.8-7.7) 4.4x10^3uL (1.8-7.7) Lymphocytes # (Auto) 1.6x10^3/uL (1.0-4.8) 1.8x10^3/uL (1.0-4.8) Monocytes # (Auto) 0.7x10^3/uL (0.0-1.1) 0.8x10^3/uL (0.0-1.1) Eosinophils # (Auto) 0.4x10^3/uL (0.0-0.7) 0.3x10^3/uL (0.0-0.7) Basophils # (Auto) 0.0x10^3/uL (0.0-0.2) 0.0x10^3/uL (0.0-0.2) Prothrombin Time 13.8SEC (11.7-14.0) Prothromb Time International Ratio 1.1 (0.8-1.1) Activated Partial Thromboplast Time 30SEC (24-38) Sodium Level 144mmol/L (136-145) 145mmol/L (136-145) Potassium Level 3.1mmol/L (3.5-5.1) 3.5mmol/L (3.5-5.1) Chloride Level 104mmol/L (98-107) 108mmol/L (98-107) Carbon Dioxide Level 31mmol/L (21-32) 31mmol/L (21-32) Anion Gap 9 (6-14) 6 (6-14) Blood Urea Nitrogen 15mg/dL (7-20) 14mg/dL (7-20) Creatinine 1.9mg/dL (0.6-1.0) 1.4mg/dL (0.6-1.0) Estimated GFR (Cockcroft-Gault) 31.1 44.2 BUN/Creatinine Ratio 8 (6-20) Glucose Level 97mg/dL (70-99) 105mg/dL (70-99) Calcium Level 10.2mg/dL (8.5-10.1) 9.8mg/dL (8.5-10.1) Total Bilirubin 0.5mg/dL (0.2-1.0) Aspartate Amino Transf (AST/SGOT) 16U/L (15-37) Alanine Aminotransferase (ALT/SGPT) 16U/L (14-59) Alkaline Phosphatase 52U/L (46-116) Troponin I Quantitative < 0.017ng/mL (0.000-0.055) Total Protein 7.4g/dL (6.4-8.2) Albumin 3.5g/dL (3.4-5.0) Albumin/Globulin Ratio 0.9 (1.0-1.7) Urine Collection Type U cath Urine Color Yellow Urine Clarity Clear Urine pH 5.5 Urine Specific Shirley 1.010 Urine Protein Negativemg/dL (NEG-TRACE) Urine Glucose (UA) Negativemg/dL (NEG) Urine Ketones (Stick) Negativemg/dL (NEG) Urine Blood Negative (NEG) Urine Nitrite Negative (NEG) Urine Bilirubin Negative (NEG) Urine Urobilinogen Dipstick 0.2mg/dL (0.2 mg/dL) Urine Leukocyte Esterase Trace (NEG) Urine RBC 0/HPF (0-2) Urine WBC 1-4/HPF (0-4) Urine Squamous Epithelial Cells Few/LPF Urine Bacteria Many/HPF (0-FEW) Urine Hyaline Casts Occasional/HPF Urine Opiates Screen Neg (NEG) Urine Methadone Screen Neg (NEG) Urine Barbiturates Neg (NEG) Urine Phencyclidine Screen Neg (NEG) Urine Amphetamine/Methamphetamine Neg (NEG) Urine Benzodiazepines Screen Neg (NEG) Urine Cocaine Screen Neg (NEG) Urine Cannabinoids Screen Neg (NEG) Urine Ethyl Alcohol Neg (NEG) Glucose (Fingerstick) 102mg/dL (70-99) Triglycerides Level 79mg/dL (0-150) Cholesterol Level 116mg/dL (0-200) LDL Cholesterol, Calculated 55mg/dL (0-100) VLDL Cholesterol, Calculated 16mg/dL (0-40) HDL Cholesterol 45mg/dL (40-60) Cholesterol/HDL Ratio 2.6 Thyroid Stimulating Hormone (TSH) 0.435uIU/mL (0.358-3.74) Test 10/01/16 03:15 White Blood Count 5.7x10^3/uL (4.0-11.0) Red Blood Count 4.35x10^6/uL (3.50-5.40) Hemoglobin 11.1g/dL (12.0-15.5) Hematocrit 35.3% (36.0-47.0) Mean Corpuscular Volume 81fL (79-100) Mean Corpuscular Hemoglobin 26pg (25-35) Mean Corpuscular Hemoglobin Concent 32g/dL (31-37) Red Cell Distribution Width 13.6% (11.5-14.5) Platelet Count 147x10^3/uL (140-400) Neutrophils (%) (Auto) 46% (31-73) Lymphocytes (%) (Auto) 35% (24-48) Monocytes (%) (Auto) 12% (0-9) Eosinophils (%) (Auto) 6% (0-3) Basophils (%) (Auto) 0% (0-3) Neutrophils # (Auto) 2.6x10^3uL (1.8-7.7) Lymphocytes # (Auto) 2.0x10^3/uL (1.0-4.8) Monocytes # (Auto) 0.7x10^3/uL (0.0-1.1) Eosinophils # (Auto) 0.3x10^3/uL (0.0-0.7) Basophils # (Auto) 0.0x10^3/uL (0.0-0.2) Sodium Level 146mmol/L (136-145) Potassium Level 3.4mmol/L (3.5-5.1) Chloride Level 108mmol/L (98-107) Carbon Dioxide Level 29mmol/L (21-32) Anion Gap 9 (6-14) Blood Urea Nitrogen 18mg/dL (7-20) Creatinine 1.6mg/dL (0.6-1.0) Estimated GFR (Cockcroft-Gault) 37.9 Glucose Level 124mg/dL (70-99) Calcium Level 9.7mg/dL (8.5-10.1) Laboratory Tests Test 10/01/16 03:15 White Blood Count 5.7x10^3/uL (4.0-11.0) Red Blood Count 4.35x10^6/uL (3.50-5.40) Hemoglobin 11.1g/dL (12.0-15.5) Hematocrit 35.3% (36.0-47.0) Mean Corpuscular Volume 81fL (79-100) Mean Corpuscular Hemoglobin 26pg (25-35) Mean Corpuscular Hemoglobin Concent 32g/dL (31-37) Red Cell Distribution Width 13.6% (11.5-14.5) Platelet Count 147x10^3/uL (140-400) Neutrophils (%) (Auto) 46% (31-73) Lymphocytes (%) (Auto) 35% (24-48) Monocytes (%) (Auto) 12% (0-9) Eosinophils (%) (Auto) 6% (0-3) Basophils (%) (Auto) 0% (0-3) Neutrophils # (Auto) 2.6x10^3uL (1.8-7.7) Lymphocytes # (Auto) 2.0x10^3/uL (1.0-4.8) Monocytes # (Auto) 0.7x10^3/uL (0.0-1.1) Eosinophils # (Auto) 0.3x10^3/uL (0.0-0.7) Basophils # (Auto) 0.0x10^3/uL (0.0-0.2) Sodium Level 146mmol/L (136-145) Potassium Level 3.4mmol/L (3.5-5.1) Chloride Level 108mmol/L (98-107) Carbon Dioxide Level 29mmol/L (21-32) Anion Gap 9 (6-14) Blood Urea Nitrogen 18mg/dL (7-20) Creatinine 1.6mg/dL (0.6-1.0) Estimated GFR (Cockcroft-Gault) 37.9 Glucose Level 124mg/dL (70-99) Calcium Level 9.7mg/dL (8.5-10.1) Microbiology 09/29/16 Urine Culture - Preliminary, Resulted 09/29/16 Urine Culture Result 1 (GARRY) - Preliminary, Resulted Medications Current Medications Sodium Chloride (Iv Sodium Chloride 0.9% 1000ml Bag) 1,000 ml @ 1,000 mls/hr Q1H IV Last administered on 09/29/16 18:00; Start 09/29/16 at 17:45; Stop at 18:44; Status DC Aspirin 324 mg 324 mg 1X ONCE PO Last administered on 09/29/16 18:00; Start at 18:00; Stop 09/29/16 at 18:01; Status DC Ceftriaxone Sodium (Rocephin 1gm Ivpb For Omni) 50 ml @ 100 mls/hr 1X ONCE IV Last administered on 09/29/16 19:19; Start 09/29/16 at 19:15; Stop 09/29/16 at 19:44; Status DC Ondansetron HCl (Zofran) 4 mg PRN Q8HRS PRN IV NAUSEA/VOMITING; Start 09/29/16 at 19:45; Stop 09/30/16 at 19:44; Status DC Acetaminophen 650 mg 650 mg PRN Q4HRS PRN PO FEVER; Start 09/29/16 at 19:45; Stop 09/30/16 at 19:44; Status DC Sodium Chloride (Iv Sodium Chloride 0.9% 1000ml Bag) 1,000 ml @ 75 mls/hr [id number] IV Last administered on 09/30/16 08:42; Start 09/29/16 at 20:00; Stop at 20:55; Status DC Potassium Chloride (Klor-Con) 40 meq 1X ONCE PO Last administered on 09/29/16 20:32; Start 09/29/16 at 20:00; Stop 09/29/16 at 20:01; Status DC Allopurinol (Zyloprim) 100 mg DAILY08 PO Last administered on 10/01/16 09:22; Start 09/30/16 at 11:00 Aspirin (Milagro Aspirin) 325 mg DAILY PO Last administered on 10/01/16 09:20; Start 09/30/16 at 11:00 Carvedilol (Coreg) 12.5 mg BIDWMEALS PO Last administered on 10/01/16 09:23; Start 09/30/16 at 11:00 Docusate Sodium (Colace) 100 mg DAILY PO Last administered on 10/01/16 09:22; Start 09/30/16 at 11:00 EZETIMIBE (Zetia) 10 mg DAILY08 PO Last administered on 10/01/16 09:23; Start 09/30/16 at 11:00 Furosemide (Lasix) 60 mg BID92 PO Last administered on 09/30/16 18:12; Start at 14:00 Hydralazine HCl (Apresoline) 50 mg TID PO Last administered on 10/01/16 09:26; Start 09/30/16 at 14:00 Acetaminophen/ Hydrocodone Bitart (Lortab 7.5/325) 1 tab BID PO Last administered on 10/01/16 09:27; Start 09/30/16 at 21:00 Losartan Potassium (Cozaar) 50 mg DAILY08 PO Last administered on 10/01/16 09: 25; Start 09/30/16 at 11:00 Trazodone HCl (Desyrel) 50 mg HS PO Last administered on 09/30/16 20:50; Start 09/30/16 at 21:00 Vitamin D (Vitamin D3) 1,000 unit DAILY PO Last administered on 10/01/16 09:22 ; Start 09/30/16 at 11:00 Duloxetine HCl (Cymbalta) 60 mg DAILY PO neuropathy/pain Last administered on 09:20; Start 09/30/16 at 11:00 Isosorbide Mononitrate (Imdur) 120 mg DAILY08 PO Last administered on 10/01/16 09:22; Start 09/30/16 at 11:00 Famotidine (Pepcid) 40 mg QHS PO Last administered on 09/30/16 20:50; Start 09/30/16 at 21:00 Atorvastatin Calcium (Lipitor) 20 mg QHS PO Last administered on 09/30/16 20:49 ; Start 09/30/16 at 21:00 Calcitriol (Rocaltrol) 0.25 mcg BID PO Last administered on 10/01/16 09:20; Start 09/30/16 at 11:00 Potassium Chloride (Klor-Con) 40 meq 1X ONCE PO Last administered on 10/01/16 09:34; Start 10/01/16 at 08:45; Stop 10/01/16 at 08:46; Status DC Cephalexin HCl (Keflex) 500 mg TID PO Last administered on 10/01/16 09:34; Start 10/01/16 at 09:30 Potassium Chloride (Klor-Con) 40 meq 1X ONCE PO ; Start 10/01/16 at 11:00; Stop 10/01/16 at 11:01; Status DC Active Scripts Active Lasix (Furosemide) 40 Mg Tablet 60 Mg PO BID Reported Zetia (Ezetimibe) 10 Mg Tablet 1 Tab PO DAILY Carvedilol 12.5 Mg Tablet 1 Tab PO BID Hydralazine Hcl 50 Mg Tablet 1 Tab PO TID Aspirin 81 Mg Tab.chew 1 Tab PO DAILY Vitamin D (Cholecalciferol (Vitamin D3)) 1,000 Unit Capsule 1 Cap PO DAILY Ranitidine Hcl 300 Mg Capsule 300 Mg PO HS Trazodone Hcl 50 Mg Tablet 50 Mg PO HS Hydrocodone-Apap 7.5-325 (Hydrocodone Bit/Acetaminophen) 1 Each Tablet 1 Tab PO BID Stool Softener (Docusate Sodium) 100 Mg Capsule 100 Mg PO DAILY Zetia (Ezetimibe) 10 Mg Tablet 10 Mg PO DAILY08 Crestor (Rosuvastatin Calcium) 5 Mg Tablet 5 Mg PO HS Losartan Potassium 50 Mg Tablet 50 Mg PO DAILY08 Allopurinol 100 Mg Tablet 100 Mg PO DAILY08 Isosorbide Mononitrate Er (Isosorbide Mononitrate) 120 Mg Tab.er.24h 120 Mg PO DAILY08 [Calcitrol] 0.25 BID Cymbalta (Duloxetine Hcl) 60 Mg Capsule.dr 60 Mg PO DAILY Vitals/I & O Vital Sign - Last 24 Hours 09/30/16 09/30/16 09/30/16 09/30/16 14:28 14:28 14:28 18:17 Pulse 83 91 74 84 B/P 142/93 160/95 146/83 142/93 09/30/16 09/30/16 09/30/16 09/30/16 18:18 18:21 19:00 20:00 Temp 98.1 98.1 Pulse 84 84 81 Resp 18 B/P 142/93 142/93 112/58 Pulse Ox 92 O2 Delivery Room Air Room Air 09/30/16 09/30/16 09/30/16 09/30/16 20:50 20:51 21:51 23:00 Temp 98.1 98.1 Pulse 86 69 Resp 18 20 B/P 150/89 120/58 Pulse Ox 96 96 93 O2 Delivery Room Air Room Air Room Air 10/01/16 10/01/16 10/01/16 10/01/16 07:00 09:22 09:23 09:25 Temp 98.0 98.0 Pulse 83 83 83 83 Resp 17 B/P 125/67 125/67 125/67 125/67 Pulse Ox 98 O2 Delivery Room Air 10/01/16 10/01/16 09:26 09:27 Pulse 83 Resp 20 B/P 125/67 O2 Delivery Room Air Intake and Output 09/30/16 09/30/16 10/01/16 14:59 22:59 06:59 Intake Total 370 ml 850 ml 1160 ml Output Total 1200 ml Balance 370 ml -350 ml 1160 ml Images MRI brain: 1. There is no evidence of a recent infarct. Scattered T2 and FLAIR hyperintense signal abnormality of the supratentorial white matter and vel is nonspecific although probably due to chronic microvascular ischemic disease, also old lacunar infarcts as stated. 2. 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 ROSA CHO MD Oct 01, 2016 11:21
--- NOTE | 2016-10-01 14:33 | PDOC ---
Provider Note Provider Note Discharge summary dictated. #[id number] CLEMENTINE GARCIA MD Oct 01, 2016 14:33
--- NOTE | 2016-10-01 23:30 | DS ---
DATE OF DISCHARGE: 10/01/2016 REASON FOR ADMISSION TO THE HOSPITAL: Near syncopal episode and confusion. CONSULTATIONS: 1. Dr. Springer. 2. Cardiology, Dr. Larsen. PROCEDURES DONE: CT head, MRI of the brain, carotid Doppler, and echocardiogram. HOSPITAL COURSE: The patient is a 76-year-old female with history of coronary artery disease, bypass surgery, previous stroke in the past remotely and she has hypertension. She was having her hair braided and she has a slight loss of conscious and syncopal episode and was admitted to the hospital. CT head was negative. MRI of the brain negative for acute stroke, shows some nasopharyngeal mass, less than 2 cm and seen by Neurology. Carotid Doppler was negative. The patient history of heart bypass surgery in the past and echocardiogram shows a good left ventricular function, normal 50-55%. The patient's memory came back and she is back to normal. The patient was discharged and does not look like any stroke. FINAL DIAGNOSES: 1. Possible syncopal episode, possible vasovagal 2. 2. Urinary tract infection. 3. Hypertension. 4. Coronary artery disease, previous bypass surgery. 5. Mild renal insufficiency, stage 2. 6. 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 DISCHARGE MEDICATIONS: See MRAD for discharge medications and the patient needs to follow with ENT for a cyst in the dorsal central nasopharynx, which is 2 x 1.[address]INE G[address] MD [address]: BETO/norma JOB#: [id number] / [id number] [facility] JOSE A FOREMAN VINAYA MD [facility]
== END 2016-10-01 13:31 | disposition home or self-care (01) | DRG 689 ==
LOC: ER 17:10 → 5 NORTH 18:00
PROVIDERS: ADMIT Internal Medicine; ATTEND Internal Medicine
DX: N39.0 Urinary tract infection, site not specified (principal); G93.41 Metabolic encephalopathy; I50.22 Chronic systolic (congestive) heart failure; I13.0 Hypertensive heart and chronic kidney disease with heart failure and stage 1 through stage 4 chronic kidney disease, or unspecified chronic kidney disease; I42.9 Cardiomyopathy, unspecified; E03.9 Hypothyroidism, unspecified; E11.22 Type 2 diabetes mellitus with diabetic chronic kidney disease; E78.00 Pure hypercholesterolemia, unspecified; E78.5 Hyperlipidemia, unspecified; F03.90 Unspecified dementia, unspecified severity, without behavioral disturbance, psychotic disturbance, mood disturbance, and anxiety; I25.10 Atherosclerotic heart disease of native coronary artery without angina pectoris; J44.9 Chronic obstructive pulmonary disease, unspecified; Z96.653 Presence of artificial knee joint, bilateral; M19.90 Unspecified osteoarthritis, unspecified site; K21.9 Gastro-esophageal reflux disease without esophagitis; M10.9 Gout, unspecified; N18.3 Chronic kidney disease, stage 3 (moderate); Z82.49 Family history of ischemic heart disease and other diseases of the circulatory system; Z86.73 Personal history of transient ischemic attack (TIA), and cerebral infarction without residual deficits; Z95.1 Presence of aortocoronary bypass graft; R55 Syncope and collapse
CPT/HCPCS: 36415; 51702; 70450; 70551; 71010; 80048; 80053; 80061; 81001; 82947; 84443; 84484; 85027; 85610; 85730; 87086; 87186; 93005; 93306; 93880; 96361; 96365; G0481; J0690; J7030; 97116; 99285-25

== ENCOUNTER 2016-10-07 12:41 | Emergency (ER) | payer MEDICARE, OTHER ==
[~2016-10-07 12:41] MED LIST changes: +ASPI81TA2 PO; +CARV12.52 PO; +CEPH-264 PO; +CHOL100013 PO; +HYDR-2869 PO
[2016-10-07 13:12] LABS: BASO % 0 % (0-3); EOS % 6 % (0-3); HEMATOCRIT 36.9 % (36.0-47.0); HEMOGLOBIN 11.6 g/dL (12.0-15.5); LYMPH # 1.6 x10^3/uL (1.0-4.8); LYMPH % 30 % (24-48); MEAN CORPUSCULAR HEMOGLOBIN 26 pg (25-35); MEAN CORPUSCULAR HGB CONC 31 g/dL (31-37); MEAN CORPUSCULAR VOLUME 81 fL (79-100); MONO % 13 % (0-9); NEUT % 51 % (31-73); PLATELET COUNT 168 x10^3/uL (140-400); RED BLOOD COUNT 4.54 x10^6/uL (3.50-5.40); RED CELL DISTRIBUTION WIDTH 14.2 % (11.5-14.5); WHITE BLOOD COUNT 5.3 x10^3/uL (4.0-11.0)
[2016-10-07] MEDS ORDERED: IV NORMAL SALINE 500ML BAG 500 ML IV ONE (13:15)
[2016-10-07 13:23] LABS: INR 1.1 (0.8-1.1); PROTHROMBIN TIME PATIENT 13.4 SEC (11.7-14.0)
[2016-10-07 13:25] LABS: CALCIUM 9.7 mg/dL (8.5-10.1); CREATININE 1.9 mg/dL (0.6-1.0); GFR 31.1; POTASSIUM 3.8 mmol/L (3.5-5.1)
[2016-10-07 13:30] LABS: ALBUMIN 3.5 g/dL (3.4-5.0); ALBUMIN/GLOBULIN RATIO 0.8 (1.0-1.7); MAGNESIUM 1.9 mg/dL (1.8-2.4); TOTAL BILIRUBIN 0.5 mg/dL (0.2-1.0); TOTAL PROTEIN 7.7 g/dL (6.4-8.2)
--- NOTE | 2016-10-07 13:44 | EKG ---
[facility] [address] [place] [address] Test Date: 2016-10-07 Test Time: 13:16:06 Pat Name: LANETTE KING Department: Room: Gender: F [employer] Driver: : 1940 Requested By: JAMIL HOPKINS Order Number: [id number] Reading MD: Measurements Intervals [place] Rate: 66 P: 34 OR: 208 QRS: -5 QRSD: 110 T: -156 QT: 454 QTc: 478 Interpretive Statements SINUS RHYTHM LEFTWARD AXIS ST & T ABNORMALITY, CONSIDER ANTEROLATERAL ISCHEMIA OR LEFT VENTRICULAR STRAIN T ABNORMALITY IN INFEROLATERAL LEADS RI6.01 No previous ECG available for comparison
[2016-10-07 16:04] VITALS: BP 149/90
--- NOTE | 2016-10-07 16:08 | PHYS DOC ---
Past Medical History Past Medical History: COPD, Diabetes-Type II, High Cholesterol, Heart Disease, Hypertension, Renal Disease, UTI Past Surgical History: Knee Replacement Additional Past Surgical Histo: bilat knee, R FA nerve graft Alcohol Use: None Drug Use: None Adult General Chief Complaint Chief Complaint: NEAR SYNCOPE HPI HPI Patient is a 76 year old female who presents with near syncope. Patient states about 30 minutes prior to arrival she was cleaning her bathroom. She had just moved up plantain some other large objects out of the room and is trying to get on the ground to scrub the floor. She had sudden onset of flushing, diaphoresis , dizziness, near syncope. She states this resolved all most completely after she rested in her living room. She denies any chest pain, palpitations, shortness of breath, unilateral numbness or weakness. She denies previous history of similar symptoms. She was recently admitted to the hospital for urinary tract infection with altered mental status. She has history of CAD, DM, HTN. PCP is Dr. Foreman. Review of Systems Review of Systems Constitutional: Denies fever or chills Eyes: Denies change in visual acuity HENT: Denies nasal congestion or sore throat Respiratory: Denies cough or shortness of breath Cardiovascular: Denies chest pain or edema GI: Denies abdominal pain, nausea, vomiting, bloody stools or diarrhea : Denies dysuria or hematuria Musculoskeletal: Denies back pain or joint pain Integument: Denies rash or skin lesions Neurologic: Reports near syncope. Denies headache, focal weakness or sensory changes Current Medications Current Medications Current Medications Medications (Trade) Dose Ordered Sig/Wilberto Start Time Stop Time Status Last Admin Dose Admin Sodium Chloride (Iv Sodium Chloride 0.9% 500ml Bag) 500 ml @ 1,000 mls/hr 1X ONCE 10/07/16 13:15 10/07/16 13:44 DC 10/07/16 13:10 1,000 MLS/HR Allergies Allergies Allergies Coded Allergies Type Severity Reaction Last Updated Verified lisinopril Allergy Intermediate COUGH 03/12/14 Yes Physical Exam Physical Exam Constitutional: Well developed, well nourished, no acute distress, non-toxic appearance. HENT: Normocephalic, atraumatic, bilateral external ears normal, oropharynx moist, nose normal. Eyes: PERRLA, EOMI, conjunctiva normal, no discharge. Neck: supple, no stridor. Cardiovascular: RRR, no murmurs, no edema. Lungs & Thorax: LCTAB, no wheezing, no respiratory distress. Abdomen: soft, nontender, nondistended. Skin: Warm, dry, no erythema, no rash. Back: No tenderness. Extremities: No tenderness, no edema. Neurologic: Alert and oriented X 3, cranial nerves II through XII grossly intact , symmetric strength and sensation to upper and lower extremities, no focal deficits noted. Psychologic: Affect normal, judgement normal, mood normal. Current Patient Data Vital Signs Vital Signs Date Time Temp Pulse Resp B/P Pulse Ox O2 Delivery O2 Flow Rate FiO2 10/07/16 16:04 72 12 149/90 97 Room Air 10/07/16 12:53 98.2 98.2 Lab Values Laboratory Tests Test 10/07/16 12:50 White Blood Count 5.3x10^3/uL (4.0-11.0) Red Blood Count 4.54x10^6/uL (3.50-5.40) Hemoglobin 11.6g/dL (12.0-15.5) L Hematocrit 36.9% (36.0-47.0) Mean Corpuscular Volume 81fL (79-100) Mean Corpuscular Hemoglobin 26pg (25-35) Mean Corpuscular Hemoglobin Concent 31g/dL (31-37) Red Cell Distribution Width 14.2% (11.5-14.5) Platelet Count 168x10^3/uL (140-400) Neutrophils (%) (Auto) 51% (31-73) Lymphocytes (%) (Auto) 30% (24-48) Monocytes (%) (Auto) 13% (0-9) H Eosinophils (%) (Auto) 6% (0-3) H Basophils (%) (Auto) 0% (0-3) Neutrophils # (Auto) 2.7x10^3uL (1.8-7.7) Lymphocytes # (Auto) 1.6x10^3/uL (1.0-4.8) Monocytes # (Auto) 0.7x10^3/uL (0.0-1.1) Eosinophils # (Auto) 0.3x10^3/uL (0.0-0.7) Basophils # (Auto) 0.0x10^3/uL (0.0-0.2) Prothrombin Time 13.4SEC (11.7-14.0) Prothrombin Time INR 1.1 (0.8-1.1) PTT 29SEC (24-38) Sodium Level 144mmol/L (136-145) Potassium Level 3.8mmol/L (3.5-5.1) Chloride Level 106mmol/L (98-107) Carbon Dioxide Level 31mmol/L (21-32) Anion Gap 7 (6-14) Blood Urea Nitrogen 19mg/dL (7-20) Creatinine 1.9mg/dL (0.6-1.0) H Estimated GFR (Cockcroft-Gault) 31.1 BUN/Creatinine Ratio 10 (6-20) Glucose Level 129mg/dL (70-99) H Calcium Level 9.7mg/dL (8.5-10.1) Magnesium Level 1.9mg/dL (1.8-2.4) Total Bilirubin 0.5mg/dL (0.2-1.0) Aspartate Amino Transferase (AST) 25U/L (15-37) Alanine Aminotransferase (ALT) 22U/L (14-59) Alkaline Phosphatase 57U/L (46-116) Troponin I Quantitative 0.023ng/mL (0.000-0.055) TP-Byt-H-Type Natriuretic Peptide 2589pg/mL (0-449) H Total Protein 7.7g/dL (6.4-8.2) Albumin 3.5g/dL (3.4-5.0) Albumin/Globulin Ratio 0.8 (1.0-1.7) L Laboratory Tests 10/07/16 12:50 Laboratory Tests 10/07/16 12:50 EKG EKG Interpreted by me: Normal sinus rhythm rate 66, no ST elevation, T waves inverted in leads 1, 2, 3, aVF, V4 through V6, normal intervals, no ectopy. No significant change from 09/29/2016. [] Radiology/Procedures Radiology/Procedures [] Course & Med Decision Making Course & Med Decision Making Pertinent Labs and Imaging studies reviewed. (See chart for details) Patient presents with near syncope. Well-appearing here with stable vital signs. Received normal saline fluid bolus. Labs, EKG showed no acute abnormality. The patient did not provide a urine specimen. I discussed results with the patient and recommended admission for further monitoring for cardiac etiology of her symptoms. She declined admission. States she has no desire to stay overnight in the hospital and acknowledges risks of leaving. Risks include worsening condition, undiagnosed condition, possibly . She voices understanding and would still like to go home and follow-up as an outpatient with her primary care doctor. I did not make her sign out against medical advice , but informed her multiple times that I would not recommend leaving the hospital tonight. Recommend rest, by mouth hydration, regular meals, follow-up with PCP within 2-3 days. Return to the emergency department for recurrence of syncope, chest pain, palpitations, shortness of breath, focal neurologic deficit , any otherwise worsening condition. Discharged home in stable condition. [] Dragon Disclaimer Dragon Disclaimer This electronic medical record was generated, in whole or in part, using a voice recognition dictation system. Departure Departure Impression: Primary Impression: Near syncope Disposition: 01 HOME, SELF-CARE Condition: STABLE Referrals: JOSE A FOREMAN (PCP) Patient Instructions: Near-Syncope Additional Instructions: You were seen in the emergency department today for near fainting. Your tests didn't show a serious cause of symptoms but there still could be cardiac (heart ) problems causing this to occur. We recommended being admitted overnight to the hospital for further testing & monitoring, but you wanted to go home. Risks of leaving include worsening condition, undiagnosed condition, possibly . Please follow up as soon as possible with Dr. Foreman. Come back for severe chest pain or shortness of breath, palpitations, numbness or weakness on 1 side of the body, recurrence of lightheadedness/dizziness, any otherwise worsening condition. JAMIL HOPKINS MD Oct 07, 2016 16:08
== END 2016-10-07 16:25 | disposition home or self-care (01) ==
LOC: ER 12:41
DX: R55 Syncope and collapse (principal); J44.9 Chronic obstructive pulmonary disease, unspecified; E78.00 Pure hypercholesterolemia, unspecified; E11.22 Type 2 diabetes mellitus with diabetic chronic kidney disease; I13.10 Hypertensive heart and chronic kidney disease without heart failure, with stage 1 through stage 4 chronic kidney disease, or unspecified chronic kidney disease; N18.9 Chronic kidney disease, unspecified; Z87.440 Personal history of urinary (tract) infections; Z88.8 Allergy status to other drugs, medicaments and biological substances
CPT/HCPCS: 36415; 80053; 83735; 83880; 84484; 85027; 85610; 85730; 93005; 96360; 99285; J7040

== ENCOUNTER 2017-05-18 16:40 | Inpatient (IN) | payer MEDICARE, OTHER ==
[~2017-05-18] VITALS: Ht 167.6 cm; Wt 83.6 kg
[~2017-05-18 16:40] MED LIST changes: +ASPI-612 PO; +ASPI-630 PO; -ASPI81TA2 PO; -ASPI81TA9 PO; +DOCU-150 PO; -DOCU100C PO; +EZET10TA18 PO; -EZET10TA3 PO; +FERR-36 PO; -FERR325T31 PO
--- NOTE | 2017-05-18 17:08 | PHYS DOC ---
Past Medical History Past Medical History: Diabetes-Type II, High Cholesterol, Heart Disease, Hypertension Past Surgical History: Angioplasty Additional Past Surgical Histo: bilat knee, R FA nerve graft Alcohol Use: None Drug Use: None Adult General Chief Complaint Chief Complaint: NAUSEA/VOMITING/DIARRHA HPI HPI Patient is a 77 year old female who presents with nausea vomiting. She states started around 1:00 today she's vomited between 5-10 times. She denies any blood in her vomit. She denies any diarrhea. She states she had a normal bowel movement yesterday. She states she feel short of breath with this been chronic in nature. She denies any chest pain. She states the pain is in epigastric area and radiates down towards her bellybutton. She states it comes and goes and nothing makes it better or worse. She does have a history of coronary artery bypass surgery in addition to tubal ligation's in the past. Review of Systems Review of Systems Constitutional: Denies fever or chills [] Eyes: Denies change in visual acuity, redness, or eye pain [] HENT: Denies nasal congestion or sore throat [] Respiratory: Denies cough or shortness of breath [] Cardiovascular: No additional information not addressed in HPI [] GI: Positive for abdominal pain, nausea, vomiting, Denies bloody stools or diarrhea [] : Denies dysuria or hematuria [] Musculoskeletal: Denies back pain or joint pain [] Integument: Denies rash or skin lesions [] Neurologic: Denies headache, focal weakness or sensory changes [] Endocrine: Denies polyuria or polydipsia [] All other systems were reviewed and found to be within normal limits, except as documented in this note. Current Medications Current Medications Current Medications Medications (Trade) Dose Ordered Sig/Wilberto Start Time Stop Time Status Last Admin Dose Admin Fentanyl Citrate (Fentanyl 2ml Vial) 25 mcg PRN Q15MIN PRN 05/18/17 17:15 05/19/17 17:14 05/18/17 17:40 25 MCG Ondansetron HCl (Zofran) 4 mg 1X ONCE 05/18/17 17:30 05/18/17 17:31 DC 05/18/17 17:40 4 MG Sodium Chloride 1,000 ml @ 1,000 mls/hr Q1H 05/18/17 17:09 05/18/17 18:08 DC 05/18/17 17:39 1,000 MLS/HR Allergies Allergies Allergies Coded Allergies Type Severity Reaction Last Updated Verified lisinopril Allergy Intermediate COUGH 03/12/14 Yes Physical Exam Physical Exam Constitutional: Well developed, well nourished, no acute distress, non-toxic appearance. [] HENT: Normocephalic, atraumatic, bilateral external ears normal, oropharynx moist, no oral exudates, nose normal. [] Eyes: PERRLA, EOMI, conjunctiva normal, no discharge. [] Neck: Normal range of motion, no tenderness, supple, no stridor. [] Cardiovascular:Heart rate regular rhythm, no murmur [] Lungs & Thorax: Bilateral breath sounds clear to auscultation [] Abdomen: Bowel sounds normal, soft, no tenderness, no masses, no pulsatile masses. [] Skin: Warm, dry, no erythema, no rash. [] Back: No tenderness, no CVA tenderness. [] Extremities: No tenderness, no cyanosis, no clubbing, ROM intact, no edema. [] Neurologic: Alert and oriented X 3, normal motor function, normal sensory function, no focal deficits noted. [] Psychologic: Affect normal, judgement normal, mood normal. [] Current Patient Data Vital Signs Vital Signs Date Time Temp Pulse Resp B/P (MAP) Pulse Ox O2 Delivery O2 Flow Rate FiO2 05/18/17 20:00 20 134/84 (101) 95 Room Air 05/18/17 17:51 97.9 89 97.9 Lab Values Laboratory Tests Test 05/18/17 17:19 05/18/17 19:25 White Blood Count 11.1 x10^3/uL (4.0-11.0) H Red Blood Count 5.08 x10^6/uL (3.50-5.40) Hemoglobin 12.9 g/dL (12.0-15.5) Hematocrit 40.6 % (36.0-47.0) Mean Corpuscular Volume 80 fL (79-100) Mean Corpuscular Hemoglobin 26 pg (25-35) Mean Corpuscular Hemoglobin Concent 32 g/dL (31-37) Red Cell Distribution Width 14.1 % (11.5-14.5) Platelet Count 164 x10^3/uL (140-400) Neutrophils (%) (Auto) 85 % (31-73) H Lymphocytes (%) (Auto) 4 % (24-48) L Monocytes (%) (Auto) 10 % (0-9) H Eosinophils (%) (Auto) 1 % (0-3) Basophils (%) (Auto) 0 % (0-3) Neutrophils # (Auto) 9.4 x10^3uL (1.8-7.7) H Lymphocytes # (Auto) 0.4 x10^3/uL (1.0-4.8) L Monocytes # (Auto) 1.1 x10^3/uL (0.0-1.1) Eosinophils # (Auto) 0.1 x10^3/uL (0.0-0.7) Basophils # (Auto) 0.0 x10^3/uL (0.0-0.2) Segmented Neutrophils % 87 % (35-66) H Band Neutrophils % 1 % (0-9) Lymphocytes % 6 % (24-48) L Monocytes % 5 % (0-10) Eosinophils % 1 % (0-5) Toxic Granulation Slight Toxic Vacuolation Slight Platelet Estimate Adequate (ADEQUATE) Prothrombin Time 12.6 SEC (11.7-14.0) Prothrombin Time INR 1.0 (0.8-1.1) Sodium Level 139 mmol/L (136-145) Potassium Level 3.9 mmol/L (3.5-5.1) Chloride Level 103 mmol/L (98-107) Carbon Dioxide Level 28 mmol/L (21-32) Anion Gap 8 (6-14) Blood Urea Nitrogen 28 mg/dL (7-20) H Creatinine 2.2 mg/dL (0.6-1.0) H Estimated GFR (Cockcroft-Gault) 26.2 Glucose Level 125 mg/dL (70-99) H Calcium Level 10.5 mg/dL (8.5-10.1) H Magnesium Level 2.0 mg/dL (1.8-2.4) Total Bilirubin 0.5 mg/dL (0.2-1.0) Direct Bilirubin 0.1 mg/dL (0.0-0.2) Aspartate Amino Transferase (AST) 26 U/L (15-37) Alanine Aminotransferase (ALT) 26 U/L (14-59) Alkaline Phosphatase 63 U/L (46-116) Creatine Kinase 126 U/L (26-192) Creatine Kinase MB (Mass) 0.9 ng/mL (0.0-3.6) Creatine Kinase MB Relative Index 0.7 % (0-4) Troponin I Quantitative < 0.017 ng/mL (0.000-0.055) ZD-Yvl-U-Type Natriuretic Peptide 1035 pg/mL (0-449) H Total Protein 8.4 g/dL (6.4-8.2) H Albumin 4.2 g/dL (3.4-5.0) Lipase 119 U/L (73-393) Urine Collection Type Unknown Urine Color Yellow Urine Clarity Clear Urine pH 6.0 Urine Specific Crystal 1.015 Urine Protein Negative mg/dL (NEG-TRACE) Urine Glucose (UA) Negative mg/dL (NEG) Urine Ketones (Stick) Negative mg/dL (NEG) Urine Blood Negative (NEG) Urine Nitrite Negative (NEG) Urine Bilirubin Negative (NEG) Urine Urobilinogen Dipstick 0.2 mg/dL (0.2 mg/dL) Urine Leukocyte Esterase Small (NEG) Urine RBC 0 /HPF (0-2) Urine WBC 1-4 /HPF (0-4) Urine Squamous Epithelial Cells Many /LPF Urine Bacteria Many /HPF (0-FEW) Urine Hyaline Casts Moderate /HPF Urine Mucus Mod /LPF Laboratory Tests 05/18/17 17:19 Laboratory Tests 05/18/17 17:19 EKG EKG EKG shows sinus rhythm with rate of [address] elevations or T-wave inversions in 1, aVL, V4, V5, V6, left axis deviation noted, QTC 459 ms, as interpreted by me. He G is similar to ones performed on October 07, 2016 Radiology/Procedures Radiology/Procedures [facility] [address] [place], [place] [id number] IMAGING REPORT Signed PATIENT: LANETTE KING ACCOUNT: [id number] : 1940 LOCATION: ER AGE: 77 SEX: F EXAM STATUS: REG ER ORD. PHYSICIAN: NATALEE TYLER MD REASON: abd pain PROCEDURE: CT ABDOMEN PELVIS WO CONTRAST CT abdomen and pelvis without contrast HISTORY: Nausea, vomiting and diarrhea and abdominal pain. COMPARISON: CT chest, abdomen and pelvis March 12, 2014. TECHNIQUE: Helical noncontrast CT imaging of the abdomen and pelvis was acquired. Abdomen findings: Bilateral lower lobe mild bronchiectasis and bronchial wall thickening and areas of endobronchial plugging as present on prior imaging. Cardiomegaly. Coronary calcified plaque. Hiatal hernia gastric fundus and cardia. Indistinct to center left renal midpole hypodensity. Mild lobulation of the bilateral renal cortex. Subcentimeter hyperdensity left renal upper pole. Right renal vascular calcification at midpole. Mild bilateral pelviectasis no obstructing ureteral calculi. Calcified plaque abdominal arteries and aorta. Fatty pancreas, adrenals, gallbladder, liver and spleen are unremarkable. Appendix is negative. No obstruction or inflammatory changes in GI tract. No abdominal free fluid. Lumbar disc bulges and endplate and facet osteophytes. Spinal canal stenoses at several levels. Pelvis findings: No bladder calculi. Uterus, ovaries, rectum and bones unremarkable. No pelvic fluid. IMPRESSION: 1. No acute process in the abdomen or pelvis. Appendix is negative. 2. Indistinct 2 cm left renal midpole hypodensity. Subcentimeter left renal upper pole hyperdensity. Mild bilateral renal cortical lobulation. Findings may be further characterized by outpatient renal sonography to assess for cysts versus solid lesions. 3. Hiatal hernia. 4. Lower lobe bronchial wall thickening and endobronchial plugging similar to prior exam likely chronic bronchitis or aspiration. Exposure: One or more of the following individualized dose reduction techniques were utilized for this examination: 1. Automated exposure control 2. Adjustment of the mA and/or kV according to patient size 3. Use of iterative reconstruction technique Electronically signed by: Silas Mcgovern MD (05/18/2017 7:20 PM) [facility] DICTATED and SIGNED BY: SILAS MCGOVERN MD DATE: 05/18/171911 CC: JOSE A FOREMAN; NATALEE TYLER MD ~ Impressions: Chest pain Abdominal pain/nausea-resolved Diabetes Dyslipidemia Coronary artery disease Course & Med Decision Making Course & Med Decision Making Pertinent Labs and Imaging studies reviewed. (See chart for details) Patient's EKG is similar to previous EKGs, her labs are nonacute. Her pain has resolved. Patient's daughter is not okay with him being discharged home and I do agree that with her history and intermittent pain in her abdomen that also on her chest she needs to have a rule out. We'll admit to Dr. Peter for Dr. Foreman. Patient's in stable condition at this time. I spoke with who wanted cardiology consult. Dragon Disclaimer Dragon Disclaimer This electronic medical record was generated, in whole or in part, using a voice recognition dictation system. Departure Departure Impression: Primary Impression: Chest pain Disposition: ADMITTED INPATIENT Admitting Physician: Araceli Peter Condition: STABLE Referrals: JOSE A FOREMAN (PCP) NATALEE TYLER MD May 18, 2017 17:08
[2017-05-18] MEDS ORDERED: IV NORMAL SALINE 1000ML BAG 1,000 ML IV SCH (17:09)
[2017-05-18 17:26] LABS: BASO % 0 % (0-3); EOS % 1 % (0-3); HEMATOCRIT 40.6 % (36.0-47.0); HEMOGLOBIN 12.9 g/dL (12.0-15.5); LYMPH # 0.4 x10^3/uL (1.0-4.8); LYMPH % 4 % (24-48); MEAN CORPUSCULAR HEMOGLOBIN 26 pg (25-35); MEAN CORPUSCULAR HGB CONC 32 g/dL (31-37); MEAN CORPUSCULAR VOLUME 80 fL (79-100); MONO % 10 % (0-9); NEUT % 85 % (31-73); PLATELET COUNT 164 x10^3/uL (140-400); RED BLOOD COUNT 5.08 x10^6/uL (3.50-5.40); RED CELL DISTRIBUTION WIDTH 14.1 % (11.5-14.5); WHITE BLOOD COUNT 11.1 x10^3/uL (4.0-11.0)
[2017-05-18] MEDS ORDERED: ONDANSETRON PF 4 MG/2 ML VIAL. IV ONE (17:30)
[2017-05-18 17:35] LABS: PROTHROMBIN TIME PATIENT 12.6 SEC (11.7-14.0)
[2017-05-18 17:40] LABS: CALCIUM 10.5 mg/dL (8.5-10.1); CREATININE 2.2 mg/dL (0.6-1.0); GFR 26.2; POTASSIUM 3.9 mmol/L (3.5-5.1)
[2017-05-18] MEDS: fentaNYL PF VIAL 100 MCG/2 ML VIAL IV PRN ×2 (17:40→21:59)
[2017-05-18 17:43] LABS: % EOS 1 % (0-5); ALBUMIN 4.2 g/dL (3.4-5.0); DIRECT BILIRUBIN 0.1 mg/dL (0.0-0.2); PLT ESTIMATE ADEQUATE (ADEQUATE); TOTAL BILIRUBIN 0.5 mg/dL (0.2-1.0); TOTAL PROTEIN 8.4 g/dL (6.4-8.2); TOXIC GRANULATION SLIGHT; TOXIC VACUOLATION SLIGHT
[2017-05-18 17:56] LABS: CKMB MASS 0.9 ng/mL (0.0-3.6)
--- NOTE | 2017-05-18 19:23 | RAD ---
CT abdomen and pelvis without contrast HISTORY: Nausea, vomiting and diarrhea and abdominal pain. COMPARISON: CT chest, abdomen and pelvis March 12, 2014. TECHNIQUE: Helical noncontrast CT imaging of the abdomen and pelvis was acquired. Abdomen findings: Bilateral lower lobe mild bronchiectasis and bronchial wall thickening and areas of endobronchial plugging as present on prior imaging. Cardiomegaly. Coronary calcified plaque. Hiatal hernia gastric fundus and cardia. Indistinct to center left renal midpole hypodensity. Mild lobulation of the bilateral renal cortex. Subcentimeter hyperdensity left renal upper pole. Right renal vascular calcification at midpole. Mild bilateral pelviectasis no obstructing ureteral calculi. Calcified plaque abdominal arteries and aorta. Fatty pancreas, adrenals, gallbladder, liver and spleen are unremarkable. Appendix is negative. No obstruction or inflammatory changes in GI tract. No abdominal free fluid. Lumbar disc bulges and endplate and facet osteophytes. Spinal canal stenoses at several levels. Pelvis findings: No bladder calculi. Uterus, ovaries, rectum and bones unremarkable. No pelvic fluid. IMPRESSION: 1. No acute process in the abdomen or pelvis. Appendix is negative. 2. Indistinct 2 cm left renal midpole hypodensity. Subcentimeter left renal upper pole hyperdensity. Mild bilateral renal cortical lobulation. Findings may be further characterized by outpatient renal sonography to assess for cysts versus solid lesions. 3. Hiatal hernia. 4. Lower lobe bronchial wall thickening and endobronchial plugging similar to prior exam likely chronic bronchitis or aspiration. Exposure: One or more of the following individualized dose reduction techniques were utilized for this examination: 1. Automated exposure control 2. Adjustment of the mA and/or kV according to patient size 3. Use of iterative reconstruction technique Electronically signed by: Tomi Mcgovern MD (05/18/2017 7:20 PM) [facility]
[2017-05-18 19:38] LABS: BILIRUBIN,URINE NEGATIVE (NEG); GLUCOSE,URINE NEGATIVE (NEG); NITRITE,URINE NEGATIVE (NEG); PROTEIN,URINE NEGATIVE (NEG-TRACE); UROBILINOGEN,URINE 0.2 mg/dL (0.2 mg/dL)
[2017-05-18 19:45] LABS: RBC,URINE 0 /HPF (0-2)
[2017-05-18 19:46] LABS: BACTERIA,URINE MANY /HPF (0-FEW); SQUAMOUS EPITHELIAL CELL,UR MANY /LPF
[2017-05-18] MEDS ORDERED: ONDANSETRON PF 4 MG/2 ML VIAL. IV PRN (21:15)
[2017-05-18] MEDS ORDERED: ASPIRIN 325 MG TABLET PO ONE (21:15)
[2017-05-18 21:19] LABS: CKMB MASS 1.7 ng/mL (0.0-3.6)
[2017-05-18] MEDS ORDERED: MORPHINE SULFATE 4 MG/ML DISP.SYRIN. IV PRN (21:30)
[2017-05-18 22:33] VITALS: BP 131/75
[2017-05-18 22:34] VITALS: BP 131/75
[2017-05-19 03:15] VITALS: BP 128/70
[2017-05-19 03:43] LABS: BASO % 0 % (0-3); EOS % 1 % (0-3); HEMATOCRIT 33.7 % (36.0-47.0); HEMOGLOBIN 10.8 g/dL (12.0-15.5); LYMPH # 1.1 x10^3/uL (1.0-4.8); LYMPH % 11 % (24-48); MEAN CORPUSCULAR HEMOGLOBIN 26 pg (25-35); MEAN CORPUSCULAR HGB CONC 32 g/dL (31-37); MEAN CORPUSCULAR VOLUME 80 fL (79-100); MONO % 6 % (0-9); NEUT % 82 % (31-73); PLATELET COUNT 137 x10^3/uL (140-400); RED BLOOD COUNT 4.21 x10^6/uL (3.50-5.40); RED CELL DISTRIBUTION WIDTH 13.8 % (11.5-14.5); WHITE BLOOD COUNT 10.1 x10^3/uL (4.0-11.0)
[2017-05-19 03:54] LABS: CALCIUM 9.7 mg/dL (8.5-10.1); CREATININE 1.8 mg/dL (0.6-1.0); POTASSIUM 4.2 mmol/L (3.5-5.1)
--- NOTE | 2017-05-19 06:11 | EKG ---
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
[2017-05-19 07:00] VITALS: BP 115/45
--- NOTE | 2017-05-19 08:32 | RAD ---
EXAM: Two view abdomen with one view chest HISTORY: Abdominal pain. COMPARISON: 12/28/2008. FINDINGS: A frontal view of the chest and supine/upright views of the abdomen are obtained. There are no confluent infiltrates. There is no pneumothorax or pleural effusion. The heart is not enlarged. A retrocardiac opacity is consistent with a moderate hiatal hernia. There are changes of coronary artery bypass grafting. There are atherosclerotic calcifications of the aorta. There is no pneumoperitoneum. There are no distended small bowel loops or significant air-fluid levels. There is gas distally. There is a mild lumbar levocurvature. IMPRESSION: 1. No confluent infiltrates. Moderate hiatal hernia. 2. No evidence of obstruction.
[2017-05-19 10:41] LABS: CHOLESTEROL/HDL RATIO 2.6
--- NOTE | 2017-05-19 10:57 | HP ---
ADMIT DATE: 05/18/2017 LOCATION: 206. REASON FOR ADMISSION TO THE HOSPITAL: Nausea, vomiting, epigastric pain. The patient has a known history of coronary artery disease, rule out underlying angina or heart attack at this present time. HISTORY OF PRESENT ILLNESS: The patient is a 77-year-old female, patient of Dr. Foreman, and she had a heart bypass surgery 10 years ago. She has hypertension, hyperlipidemia, coronary artery disease, remote stroke in the past. She ate her breakfast and around 2 o'clock, she has persistent nausea and vomiting, no diarrhea. Denies eating any leftovers, had some epigastric pain and was brought to the hospital, had a workup done and her creatinine was 1.8. She was admitted for serial EKGs and cardiac enzymes. Cardiology is being consulted. PAST MEDICAL HISTORY: Coronary artery disease, hypertension, hyperlipidemia, old stroke, chronic renal insufficiency and questionable diabetes. PAST SURGICAL HISTORY: Bilateral knee replacement, heart bypass surgery. ALLERGIES: LISINOPRIL CAUSES SWELLING. MEDICATIONS: Zetia 10 mg, allopurinol 100 mg daily, aspirin 81 daily, Coreg 12.5 twice a day, vitamin D daily, Colace 100 mg daily, Cymbalta 60 mg daily, Lasix 40 mg twice a day, hydralazine 50 mg 3 times a day, isosorbide 120 mg daily, losartan 50 mg daily, Zantac daily, Crestor 5 mg daily, calcitriol 0.25 daily. FAMILY HISTORY: Positive for hypertension, heart transplant in the daughter. SOCIAL HISTORY: Denies smoking or alcohol. REVIEW OF SYSTEMS: Fourteen-system review, GASTROINTESTINAL: Had some epigastric pain, nausea, vomiting. No diarrhea. PULMONOLOGY: No cough or short of breath. Rest of the 14-system was reviewed and negative. PHYSICAL EXAMINATION: VITAL SIGNS: At the time of admission shows a temperature 98, pulse 89, respirations 20, blood pressure 137/87, 96 on room air. HEENT: Head is atraumatic. Pupils equal. Oral cavity: No congestion. NECK: Supple. Thyroid not enlarged. JVD not elevated. CHEST: Symmetrical, scar of heart surgery. CARDIOVASCULAR: S1, S2. LUNGS: Clear to auscultation. ABDOMEN: Soft. There is a scar in the lower abdomen, had a tubal ligation. Pulses are present. No mass palpable. EXTERNAL GENITALIA: No Steward. RECTAL: Deferred. EXTREMITIES: No calf tenderness, no edema. NEUROLOGIC: Cranial nerves intact. Power 5/5 in all extremities. LABORATORY DATA: Shows a white count of 11, hemoglobin 13, platelets 164. Electrolytes show sodium 139, potassium 3.9, chloride 103, bicarbonate 28, BUN 28, creatinine 2.2, glucose 125. LFTs were normal. Lipase was normal. ProBNP was 1035. INR is 1.0. Urine is negative for 1-4 wbc's, small leukocyte esterase. Acute abdominal series was negative. CT of the abdomen and pelvis, no acute process in the abdomen. There is a 2 cm density in the left kidney, hiatal hernia, bronchial wall thickening. FINAL IMPRESSION: 1. Nausea, vomiting. Known history of coronary artery disease, rule out acute myocardial infarction by serial cardiac enzymes and EKG. 2. Coronary artery disease, bypass surgery 10 years ago. 3. Hypertension. 4. Hyperlipidemia. 5. Fibromyalgia. 6. Remote history of stroke. 7. Chronic renal insufficiency staged between 3 and 4. PLAN: At this time, admit to hospital, hydrate with IV fluids. Serial cardiac enzymes and EKG. Cardiology is consulted. Monitor kidney function. Ultrasound of the kidneys and also was noticed to have some cyst in the kidney. We will keep an eye with outpatient sonogram and serial CT scan. CLEMENTINE GARCIA MD DR: BETO/norma JOB#: [id number] / [id number] ruddy FOREMAN DR
[2017-05-19 11:00] VITALS: BP 133/77
[2017-05-19] MEDS: FUROSEMIDE 40 MG TABLET. PO SCH ×2 (11:00→17:06)
[2017-05-19] MEDS: EZETIMIBE 10 MG TABLET. PO SCH (11:07)
[2017-05-19] MEDS: CHOLECALCIFEROL (VITAMIN D3) 1,000 UNIT TABLET PO SCH (11:09)
[2017-05-19] MEDS: DULoxetine HCL 30 MG CAPSULE.DR PO SCH (11:09)
[2017-05-19] MEDS: ALLOPURINOL 100 MG TABLET. PO SCH (11:09)
[2017-05-19] MEDS: DOCUSATE SODIUM 100 MG CAPSULE. PO SCH (11:10)
[2017-05-19] MEDS: IV NORMAL SALINE 1000ML BAG 1,000 ML IV SCH (11:10)
[2017-05-19] MEDS: ASPIRIN CHEWABLE 81 MG TABLET. PO SCH (11:10)
--- NOTE | 2017-05-19 11:25 | PDOC2 ---
CARDIAC CONSULT DATE OF CONSULT Date of Consult DATE: 05/19/17 TIME: 11:05 REASON FOR CONSULT Reason for Consult: chest pain REFERRING PHYSICIAN Referring Physician: maribell SOURCE Source: Chart review, Patient HISTORY OF PRESENT ILLNESS HISTORY OF PRESENT ILLNESS This is a pleasant 77 yo female admitted for complains of chest discomfort and vomiting. Reports of daily heartburn with no medications. Waking up in AM with cough and throat irritation. Denies any palpitations but positive for mid chest pain nonradiating. Positive for CARO, weakness. No orthopnea. PND. Her chest and vomiting discomfort started yesterday which is now better. She follow with cardiology and verbalized compliance with her medications PAST MEDICAL HISTORY Past Medical History Cardiovascular: CAD, CHF (cardiomyopathy), HTN, Hyperlipidemia, Other Pulmonary: No pertinent hx CENTRAL NERVOUS SYSTEM: CVA GI: GERD, Other (hiatal hernia) Hepatobiliary: No pertinent hx Psych: No pertinent hx Musculoskeletal: Osteoarthritis Rheumatologic: Gout Infectious disease: No pertinent hx ENT: No pertinent hx Endocrine: Hypothyroidism, Other (left thyroid nodules) PAST SURGICAL HISTORY Past Surgical History CABG (x4), Total knee replacement (bilateral), Tubal Ligation FAMILY HISTORY Family History noncontributory SOCIAL HISTORY Social History Smoke: No ALCOHOL: none Drugs: None Lives: with Family CURRENT MEDICATIONS CURRENT MEDICATIONS Current Medications Medications (Trade) Dose Ordered Sig/Wilberto Route PRN Reason Start Time Stop Time Status Last Admin Dose Admin Fentanyl Citrate (Fentanyl 2ml Vial) 25 mcg PRN Q15MIN PRN IV PAIN GREATER THAN 3/10 05/18/17 17:15 05/19/17 17:14 05/18/17 21:59 Sodium Chloride 1,000 ml @ 1,000 mls/hr Q1H IV 05/18/17 17:09 05/18/17 18:08 DC 05/18/17 17:39 Ondansetron HCl (Zofran) 4 mg 1X ONCE IV 05/18/17 17:30 05/18/17 17:31 DC 05/18/17 17:40 Aspirin (Milagro Aspirin) 325 mg 1X ONCE PO 05/18/17 21:15 05/18/17 21:17 DC 05/18/17 21:15 ALLERGIES ALLERGIES: Coded Allergies: lisinopril (Verified Allergy, Intermediate, COUGH, 03/12/14) ROS Review of System 14 point ROS evaluated with pertinent positives noted per HPI PHYSICAL EXAM General: Alert, Oriented X3, Cooperative, No acute distress HEENT: Atraumatic, Mucous membr. moist/pink Lungs: Clear to auscultation, Normal air movement Heart: Regular rate (SR), Normal S1, Normal S2, Other (2/6 sytolic murmur to LLS border) Abdomen: Soft, No tenderness Extremities: No cyanosis, No edema Skin: No breakdown, No significant lesion Neuro: Normal speech, Sensation intact Psych/Mental Status: Mental status NL, Mood NL MUSCULOSKELETAL: Osteoarthritic changes both hands VITALS VITALS Vital Signs Date Time Temp Pulse Resp B/P (MAP) Pulse Ox O2 Delivery O2 Flow Rate FiO2 05/19/17 08:00 Room Air 05/19/17 07:00 98.1 75 20 115/45 (68) 96 98.1 LABS Lab: Laboratory Tests Test 05/18/17 17:19 05/18/17 19:25 05/18/17 20:30 05/19/17 03:28 White Blood Count 11.1 x10^3/uL (4.0-11.0) 10.1 x10^3/uL (4.0-11.0) Red Blood Count 5.08 x10^6/uL (3.50-5.40) 4.21 x10^6/uL (3.50-5.40) Hemoglobin 12.9 g/dL (12.0-15.5) 10.8 g/dL (12.0-15.5) Hematocrit 40.6 % (36.0-47.0) 33.7 % (36.0-47.0) Mean Corpuscular Volume 80 fL (79-100) 80 fL (79-100) Mean Corpuscular Hemoglobin 26 pg (25-35) 26 pg (25-35) Mean Corpuscular Hemoglobin Concent 32 g/dL (31-37) 32 g/dL (31-37) Red Cell Distribution Width 14.1 % (11.5-14.5) 13.8 % (11.5-14.5) Platelet Count 164 x10^3/uL (140-400) 137 x10^3/uL (140-400) Neutrophils (%) (Auto) 85 % (31-73) 82 % (31-73) Lymphocytes (%) (Auto) 4 % (24-48) 11 % (24-48) Monocytes (%) (Auto) 10 % (0-9) 6 % (0-9) Eosinophils (%) (Auto) 1 % (0-3) 1 % (0-3) Basophils (%) (Auto) 0 % (0-3) 0 % (0-3) Neutrophils # (Auto) 9.4 x10^3uL (1.8-7.7) 8.3 x10^3uL (1.8-7.7) Lymphocytes # (Auto) 0.4 x10^3/uL (1.0-4.8) 1.1 x10^3/uL (1.0-4.8) Monocytes # (Auto) 1.1 x10^3/uL (0.0-1.1) 0.6 x10^3/uL (0.0-1.1) Eosinophils # (Auto) 0.1 x10^3/uL (0.0-0.7) 0.1 x10^3/uL (0.0-0.7) Basophils # (Auto) 0.0 x10^3/uL (0.0-0.2) 0.0 x10^3/uL (0.0-0.2) Segmented Neutrophils % 87 % (35-66) Band Neutrophils % 1 % (0-9) Lymphocytes % 6 % (24-48) Monocytes % 5 % (0-10) Eosinophils % 1 % (0-5) Toxic Granulation Slight Toxic Vacuolation Slight Platelet Estimate Adequate (ADEQUATE) Prothrombin Time 12.6 SEC (11.7-14.0) Prothromb Time International Ratio 1.0 (0.8-1.1) Sodium Level 139 mmol/L (136-145) 140 mmol/L (136-145) Potassium Level 3.9 mmol/L (3.5-5.1) 4.2 mmol/L (3.5-5.1) Chloride Level 103 mmol/L (98-107) 107 mmol/L (98-107) Carbon Dioxide Level 28 mmol/L (21-32) 30 mmol/L (21-32) Anion Gap 8 (6-14) 3 (6-14) Blood Urea Nitrogen 28 mg/dL (7-20) 31 mg/dL (7-20) Creatinine 2.2 mg/dL (0.6-1.0) 1.8 mg/dL (0.6-1.0) Estimated GFR (Cockcroft-Gault) 26.2 33.0 Glucose Level 125 mg/dL (70-99) 124 mg/dL (70-99) Calcium Level 10.5 mg/dL (8.5-10.1) 9.7 mg/dL (8.5-10.1) Magnesium Level 2.0 mg/dL (1.8-2.4) Total Bilirubin 0.5 mg/dL (0.2-1.0) Direct Bilirubin 0.1 mg/dL (0.0-0.2) Aspartate Amino Transf (AST/SGOT) 26 U/L (15-37) Alanine Aminotransferase (ALT/SGPT) 26 U/L (14-59) Alkaline Phosphatase 63 U/L (46-116) Creatine Kinase 126 U/L (26-192) 112 U/L (26-192) Creatine Kinase MB (Mass) 0.9 ng/mL (0.0-3.6) 1.7 ng/mL (0.0-3.6) Creatine Kinase MB Relative Index 0.7 % (0-4) 1.5 % (0-4) Troponin I Quantitative < 0.017 ng/mL (0.000-0.055) < 0.017 ng/mL (0.000-0.055) 0.018 ng/mL (0.000-0.055) NB-Wpf-C-Type Natriuretic Peptide 1035 pg/mL (0-449) Total Protein 8.4 g/dL (6.4-8.2) Albumin 4.2 g/dL (3.4-5.0) Lipase 119 U/L (73-393) Urine Collection Type Unknown Urine Color Yellow Urine Clarity Clear Urine pH 6.0 Urine Specific [place] 1.015 Urine Protein Negative mg/dL (NEG-TRACE) Urine Glucose (UA) Negative mg/dL (NEG) Urine Ketones (Stick) Negative mg/dL (NEG) Urine Blood Negative (NEG) Urine Nitrite Negative (NEG) Urine Bilirubin Negative (NEG) Urine Urobilinogen Dipstick 0.2 mg/dL (0.2 mg/dL) Urine Leukocyte Esterase Small (NEG) Urine RBC 0 /HPF (0-2) Urine WBC 1-4 /HPF (0-4) Urine Squamous Epithelial Cells Many /LPF Urine Bacteria Many /HPF (0-FEW) Urine Hyaline Casts Moderate /HPF Urine Mucus Mod /LPF Triglycerides Level 49 mg/dL (0-150) Cholesterol Level 114 mg/dL (0-200) LDL Cholesterol, Calculated 60 mg/dL (0-100) VLDL Cholesterol, Calculated 10 mg/dL (0-40) Non-HDL Cholesterol Calculated 70 mg/dL (0-129) HDL Cholesterol 44 mg/dL (40-60) Cholesterol/HDL Ratio 2.6 Thyroid Stimulating Hormone (TSH) 0.346 uIU/mL (0.358-3.74) Test 05/19/17 09:19 Troponin I Quantitative < 0.017 ng/mL (0.000-0.055) ECHOCARDIOGRAM ECHOCARDIOGRAM <Conclusion> The left ventricular systolic function is normal and the ejection fraction is within normal range. The Ejection Fraction is 50-55%. There is normal LV segmental wall motion. DATE: 10/01/16 1028 STRESS TEST STRESS TEST Conclusion 1. Regadenoson cardioisotope stress test showed small infarct involving the basal inferolateral wall without any significant ischemia. 2. Normal left ventricular systolic function with ejection fraction calculated at 54%. 3. Low risk for cardiovascular events. DATE: 06/06/14 1509 ASSESSMENT/PLAN ASSESSMENT/PLAN 1. Atypical chest pain: Troponin series normal, EKG SR without acute changes. Doubt ACS, likely GI. 2. GERD exacerbation; suspect reflux esophagitis with underlying moderate hiatal hernia per CT. Notable for daily heartburn 3. CAD: past CABG. stable. 4. CARO/weakness: likely culmination of ROSY and deconditioning. Does not use CPAP. 5. HTN: controlled 6. HLP 7. Hypothyroidism 8. CKD3 9. Hx of CVA Recommendations 1. MPI to completely rule out ischemia. 2. Start protonix. May need GI consult. 3. Continue cardiac home regimen. Start on protonix and mechanical GERD prevention. 4. Follow with [facility] cardiology. 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
[2017-05-19] MEDS ORDERED: REGADENOSON 0.4 MG/5 ML DISP.SYRIN. IV ONE (12:15)
--- NOTE | 2017-05-19 12:41 | RAD ---
Indication: Nausea and vomiting. The pancreas is unremarkable. The aorta is nonaneurysmal. The IVC is unremarkable. The liver is normal in size. No liver mass is detected. The gallbladder is without stones or sludge. No wall thickening or biliary ductal dilatation is seen. The spleen is unremarkable. The kidneys are unremarkable apart from a 13 mm cyst involving the left kidney. No calculi or hydronephrosis is identified. There is no ascites. Impression: Small left renal cyst. The study is otherwise unremarkable.
[2017-05-19] MEDS: LOSARTAN POTASSIUM 50 MG TABLET. PO SCH (14:18)
[2017-05-19] MEDS: ISOSORBIDE MONONITRATE ER 30 MG TAB.ER.24H PO SCH (14:19)
[2017-05-19] MEDS: HYDROcodone/APAP 7.5/325MG 1 TAB TABLET PO SCH ×2 (14:20→20:16)
[2017-05-19] MEDS: CALCITRIOL 0.25 MCG CAPSULE. PO SCH ×2 (14:20→20:14)
[2017-05-19] MEDS: CARVEDILOL 12.5 MG TABLET. PO SCH ×2 (14:21→17:04)
[2017-05-19 15:00] VITALS: BP 163/78
--- NOTE | 2017-05-19 15:54 | RAD ---
APPROVED REPORT Test Type: Pharmacological Stress Nurse/Tech: More Tapia R.N. Test Indications: c/p Cardiac History: htn, CABG,DM Medications: See Electronic Medical Record Medical History: See Electronic Medical Record Resting ECG: SR w/ inverted T waves in leads I-III, AVF, V3-V6, some slight ST depression in mo st of the leads with inverted T wave < 1 small box. Resting Heart Rate: 78 bpm Resting Blood Pressure: 118/63mmHg Pretest Chest Pain: No chest pain Nurse/Tech Notes S1S2, lungs CTA Consent: The procedure was explained to the patient in lay terms. Informed consent was witnessed. Angelo eout was entered into [employer]. History and Stress Test performed by RT Nelida (R) (N) Pharm. Details Pharmacologic stress testing was performed using 0.4mg per 5ml of regadenoson given intravenously ove r 7-10 seconds. Stress Symptoms SOB with pt back to baseline by end of recovery period POST EXERCISE Reason for Termination: Infusion complete Max HR: 98 bpm Max Blood Pressure: 134/48mmHg Blood Pressure response to exercise: Normal blood pressure response during stress. Heart Rate response to exercise: wnl Chest Pain: No. Arrhythmia: Yes. started having noted pvc's ST Change: No. see above baseline note INTERPRETATION Stress EKG Conclusion: Baseline EKG showed sinus rhythm with inferolateral T wave inversions. Non di agnostic changes at peak stress. No arrhythmias. Imaging Protocol IMAGE PROTOCOL: Rest Tc-99m/stress Tc-99m 1 day Rest: Stress: Viability: Radiopharm.Tc99m SkescazdyLh71p Sestamibi Unwk99zVl 32mCi Img Date 05/19/2017 05/19/2017 Inj-Img [id number]. 60min. Rest Admin Site:IV - Left AntecubitalAdministrator:FILIBERTO Talley, ARRT (R)(N) Stress Admin Site: IV - Left AntecubitalAdministrator: RT Nelida (R)(N) STRESS DATA End Diast. Vol.128.0mlAv. Heart Rate86.0bpm End Syst. Vol.67.0mlCO Index BSA0.0L/min Myocardial Dunq156.0gEject. Hyxweuoq83.0% Stress Rates Pk. Fill Rate1.31EDV/secLVtime Pk. Fill 79.89msec Pk. Empty Rate3.55ESV/secLVtime Pk. Jfwex790.24msec 07/02 Pk. Fill0.90EDV/sec Stress Scores Regional WT3.00Summed WT22.00 Regional WM0.00Summed WM23.00 LV Perfusion Scintigraphic images did not show any fixed or reversible defects. Wall Motion Abnormal septal wall motion with ejection fraction calculated at 48%. LV Perf. Quant 17 Seg. SSS2.00 17 Seg. SRS0.00 17 Seg. SDS2.00 Stress Defect Extent (% LAD)0.00Rest Defect Extent (% LAD)0.00Rev. Defect Extent (% LAD)0.00 Stress Defect Extent (% LCX) 13.80Rest Defect Extent (% LCX)0.00Rev. Defect Extent (% LCX)11.30 Stress Defect Extent (% RCA)0.00Rest Defect Extent (% RCA)0.00Rev. Defect Extent (% RCA)0.00 Stress Defect Extent (% VELMA)2.40Rest Defect Extent (% VELMA)0.00Rev. Defect Extent (% VELMA)2.00 Conclusion 1. Regadenoson cardioisotope stress test did not show any evidence of ischemia or infarct. 2. Abnormal septal wall motion with ejection fraction calculated at 48%. 3. Low to intermediate risk for cardiac events.
[2017-05-19 19:15] VITALS: BP 103/50
[2017-05-19] MEDS ORDERED: ATORVASTATIN CALCIUM 20 MG TABLET PO SCH (21:00)
[2017-05-19] MEDS ORDERED: FAMOTIDINE 20 MG TABLET. PO SCH (21:00)
[2017-05-19] MEDS ORDERED: ONDANSETRON PF 4 MG/2 ML VIAL. IV PRN (22:00)
[2017-05-19 23:00] VITALS: BP 110/63
[2017-05-20] MEDS: IV NORMAL SALINE 1000ML BAG 1,000 ML IV SCH ×2 (00:54→12:40)
[2017-05-20 03:05] VITALS: BP 102/56
[2017-05-20 04:45] LABS: CALCIUM 9.3 mg/dL (8.5-10.1); GFR 29.2
[2017-05-20 07:00] VITALS: BP 122/74
--- NOTE | 2017-05-20 09:11 | PDOC2 ---
GI CONSULT Reason For Consult: EGD HPI: HPI: 77 y/o female who reports onset of epigastric/upper abd pain under breasts on around 1:30 p.m. Associated w/ n/v and heartburn, radiation to sternum, some SOA. Prior to this, only occasional mild episodes of heartburn, untreated (although summary list shows ranitidine). Tried Pepto-Bismol and Tums, no relief. Came to ER, was admitted, underwent cardiac workup, MPI w/o ischemia. GI asked to see for possible EGD. On PO H2 salima here. Feels better currently. Denies dysphagia, diarrhea, constipation, hematemesis, hematochezia, melena. Has intentionally lost some weight. Daily ASA, no NSAIDs. No previous EGD or colonoscopy. No liver, pancreas, or gallbladder history. Daughter Lisha present to supplement history. PMH: PMH: CAD, CHF (cardiomyopathy), HTN, HLD, CVA, CKD, OA, gout, hypothyroidism, thyroid nodules, CABG, bilateral total knee replacement, tubal ligation FH: Family History: No pertinent hx (denies GI cancers) Social History: Smoke: No ALCOHOL: none Drugs: None ROS: GEN: Denies fevers, chills, sweats HEENT: Denies blurred vision, sore throat CV: +CP RESP: +SOA GI: Per HPI : Denies hematuria, dysuria ENDO: +weight loss NEURO: Denies confusion, dizziness MSK: Denies weakness, joint pain/swelling SKIN: Denies jaundice, pruritus Vitals: Vitals: Vital Signs Date Time Temp Pulse Resp B/P (MAP) Pulse Ox O2 Delivery O2 Flow Rate FiO2 05/20/17 07:00 97.5 64 18 122/74 (90) 96 Nasal Cannula 2.0 97.5 Labs: Labs: Laboratory Tests Test 05/19/17 09:19 05/20/17 03:45 Troponin I Quantitative < 0.017 ng/mL (0.000-0.055) Sodium Level 142 mmol/L (136-145) Potassium Level 4.0 mmol/L (3.5-5.1) Chloride Level 106 mmol/L (98-107) Carbon Dioxide Level 29 mmol/L (21-32) Anion Gap 7 (6-14) Blood Urea Nitrogen 34 mg/dL (7-20) Creatinine 2.0 mg/dL (0.6-1.0) Estimated GFR (Cockcroft-Gault) 29.2 Glucose Level 127 mg/dL (70-99) Calcium Level 9.3 mg/dL (8.5-10.1) Allergies: Coded Allergies: lisinopril (Verified Allergy, Intermediate, COUGH, 03/12/14) Medications: Current Medications Medications (Trade) Dose Ordered Sig/Wilberto Route PRN Reason Start Time Stop Time Status Last Admin Dose Admin Sodium Chloride 1,000 ml @ 75 mls/hr [id number] IV 05/19/17 10:00 05/20/17 00:54 Allopurinol (Zyloprim) 100 mg DAILY08 PO 05/19/17 11:00 05/19/17 11:09 Aspirin (Children'S Aspirin) 81 mg DAILY PO 05/19/17 11:00 05/19/17 11:10 Carvedilol (Coreg) 12.5 mg BIDWMEALS PO 05/19/17 11:00 05/19/17 17:04 Docusate Sodium (Colace) 100 mg DAILY PO 05/19/17 11:00 05/19/17 11:10 EZETIMIBE (Zetia) 10 mg DAILY PO 05/19/17 11:00 05/19/17 11:07 Furosemide (Lasix) 60 mg BID94 PO 05/19/17 11:00 05/19/17 17:06 Acetaminophen/ Hydrocodone Bitart (Lortab 7.5/325) 1 tab BID PO 05/19/17 11:00 05/19/17 20:16 Losartan Potassium (Cozaar) 50 mg DAILY08 PO 05/19/17 11:00 05/19/17 14:18 Vitamin D (Vitamin D3) 1,000 unit DAILY PO 05/19/17 11:00 05/19/17 11:09 Duloxetine HCl (Cymbalta) 60 mg DAILY PO 05/19/17 11:00 05/19/17 11:09 Isosorbide Mononitrate (Imdur) 120 mg DAILY PO 05/19/17 11:00 05/19/17 14:19 Famotidine (Pepcid) 20 mg QHS PO 05/19/17 21:00 05/19/17 20:14 Atorvastatin Calcium (Lipitor) 20 mg QHS PO 05/19/17 21:00 05/19/17 20:14 Calcitriol (Rocaltrol) 0.25 mcg BID PO 05/19/17 11:00 05/19/17 20:14 Regadenoson (Lexiscan) 0.4 mg 1X ONCE IV 05/19/17 12:15 05/19/17 12:18 DC 05/19/17 13:08 Ondansetron HCl (Zofran) 4 mg PRN Q6HRS PRN IV NAUSEA/VOMITING 05/19/17 22:00 05/19/17 22:00 Imaging: Imaging: Acute Abd Series IMPRESSION: 1. No confluent infiltrates. Moderate hiatal hernia. 2. No evidence of obstruction. CT A/P IMPRESSION: 1. No acute process in the abdomen or pelvis. Appendix is negative. 2. Indistinct 2 cm left renal midpole hypodensity. Subcentimeter left renal upper pole hyperdensity. Mild bilateral renal cortical lobulation. Findings may be further characterized by outpatient renal sonography to assess for cysts versus solid lesions. 3. Hiatal hernia. 4. Lower lobe bronchial wall thickening and endobronchial plugging similar to prior exam likely chronic bronchitis or aspiration. Abd US Impression: Small left renal cyst. The study is otherwise unremarkable. MPI Conclusion 1. Regadenoson cardioisotope stress test did not show any evidence of ischemia or infarct. 2. Abnormal septal wall motion with ejection fraction calculated at 48%. 3. Low to intermediate risk for cardiac events. PE: GEN: NAD HEENT: Atraumatic, PERRL LUNGS: CTAB HEART: RRR ABD: NABS, S/ND, mild epigastric discomfort toward sternum EXTREMITY: No edema SKIN: No rashes, no jaundice NEURO/PSYCH: A & O 3 A/P: A/P: Upper abd/atypical chest pain w/ n/v and heartburn -onset 2 days ago, cardiac etiology ruled out -previously had mild heartburn, untreated, no previous EGD CRC screen -no previous colonoscopy CAD, CKD, anemia -daily ASA -- EGD this afternoon, keep NPO. Probably would benefit from daily PPI. Outpt screening colonoscopy. MARITA CUI May 20, 2017 09:11
--- NOTE | 2017-05-20 09:37 | PDOC ---
PROGRESS NOTES Subjective Subjective nauseated last night Objective Objective Vital Signs Date Time Temp Pulse Resp B/P (MAP) Pulse Ox O2 Delivery O2 Flow Rate FiO2 05/20/17 07:00 97.5 64 18 122/74 (90) 96 Nasal Cannula 2.0 97.5 Intake and Output 05/20/17 07:00 Intake Total 1360 ml Output Total 200 ml Balance 1160 ml Intake Oral 860 ml IV Total 500 ml Output Urine Total 200 ml # Voids 4 Physical Exam Abdomen: Soft, No tenderness Heart: Regular rate (SR), Normal S1, Normal S2, Other (2/6 sytolic murmur to LLS border) Extremities: No cyanosis, No edema General: Alert, Oriented X3, Cooperative, No acute distress HEENT: Atraumatic, Mucous membr. moist/pink Lungs: Clear to auscultation, Normal air movement MUSCULOSKELETAL: Osteoarthritic changes both hands Neuro: Normal speech, Sensation intact Psych/Mental Status: Mental status NL, Mood NL Skin: No breakdown, No significant lesion Diagnosis Problem List Problems Medical Problems: (1) Chest pain Status: Acute Assessment Assessment Problems Medical Problems: (1) Chest pain Status: Acute FINAL IMPRESSION: 1. Nausea, vomiting. Known history of coronary artery disease, ruled out acute myocardial infarction by serial cardiac enzymes and EKG. 2. Coronary artery disease, bypass surgery 10 years ago. 3. Hypertension. 4. Hyperlipidemia. 5. Fibromyalgia. 6. Remote history of stroke. 7. Chronic renal insufficiency staged between 3 and 4. PLAN: Stress test -ve for ischemia. sono abdomen -ve gall stones. EGD today ,hiatal hernia. cr 2.0, chronic CKD stage 3 kidney cyst on sono kidney. d/c home today. . Problems: Plan Plan of Care Problems Medical Problems: (1) Chest pain Status: Acute Comment Review of Relevant I have reviewed the following items holly (where applicable) has been applied. Labs Laboratory Tests Test 05/20/17 03:45 Sodium Level 142 mmol/L (136-145) Potassium Level 4.0 mmol/L (3.5-5.1) Chloride Level 106 mmol/L (98-107) Carbon Dioxide Level 29 mmol/L (21-32) Anion Gap 7 (6-14) Blood Urea Nitrogen 34 mg/dL (7-20) Creatinine 2.0 mg/dL (0.6-1.0) Estimated GFR (Cockcroft-Gault) 29.2 Glucose Level 127 mg/dL (70-99) Calcium Level 9.3 mg/dL (8.5-10.1) Microbiology 05/18/17 Urine Culture - Preliminary, Resulted 05/18/17 Urine Culture Result 1 (GARRY) - Preliminary, Resulted Medications Current Medications Acetaminophen/ Hydrocodone Bitart (Lortab 7.5/325) 1 tab BID PO Last administered on 05/19/17 20:16; Start 05/19/17 at 11:00 Allopurinol (Zyloprim) 100 mg DAILY08 PO Last administered on 05/19/17 11:09 ; Start 05/19/17 at 11:00 Aspirin (Children'S Aspirin) 81 mg DAILY PO Last administered on 05/19/17 11: 10; Start 05/19/17 at 11:00 Atorvastatin Calcium (Lipitor) 20 mg QHS PO Last administered on 05/19/17 20: 14; Start 05/19/17 at 21:00 Calcitriol (Rocaltrol) 0.25 mcg BID PO Last administered on 05/19/17 20:14; Start 05/19/17 at 11:00 Carvedilol (Coreg) 12.5 mg BIDWMEALS PO Last administered on 05/19/17 17:04; Start 05/19/17 at 11:00 Docusate Sodium (Colace) 100 mg DAILY PO Last administered on 05/19/17 11:10 ; Start 05/19/17 at 11:00 Duloxetine HCl (Cymbalta) 60 mg DAILY PO Last administered on 05/19/17 11:09 ; Start 05/19/17 at 11:00 EZETIMIBE (Zetia) 10 mg DAILY PO Last administered on 05/19/17 11:07; Start 05/19/17 at 11:00 Famotidine (Pepcid) 20 mg QHS PO Last administered on 05/19/17 20:14; Start 05/19/17 at 21:00 Furosemide (Lasix) 60 mg BID94 PO Last administered on 05/19/17 17:06; Start 05/19/17 at 11:00 Isosorbide Mononitrate (Imdur) 120 mg DAILY PO Last administered on 05/19/17 14:19; Start 05/19/17 at 11:00 Losartan Potassium (Cozaar) 50 mg DAILY08 PO Last administered on 05/19/17 14 :18; Start 05/19/17 at 11:00 Ondansetron HCl (Zofran) 4 mg PRN Q6HRS PRN IV NAUSEA/VOMITING Last administered on 05/19/17 22:00; Start 05/19/17 at 22:00 Regadenoson (Lexiscan) 0.4 mg 1X ONCE IV Last administered on 05/19/17 13:08 ; Start 05/19/17 at 12:15; Stop 05/19/17 at 12:18; Status DC Sodium Chloride 1,000 ml @ 75 mls/hr [id number] IV Last administered on 00:54; Start 05/19/17 at 10:00 Vitamin D (Vitamin D3) 1,000 unit DAILY PO Last administered on 05/19/17 11: 09; Start 05/19/17 at 11:00 Vitals/I & O Vital Sign - Last 24 Hours 05/19/17 05/19/17 05/19/17 05/19/17 11:00 14:18 14:19 14:20 Temp 98.0 98.0 Pulse 73 73 73 Resp 20 B/P (MAP) 133/77 (95) 133/77 133/77 Pulse Ox 96 96 O2 Delivery Room Air Room Air 05/19/17 05/19/17 05/19/17 05/19/17 14:21 15:00 15:58 17:04 Temp 97.3 97.3 Pulse 73 83 83 Resp 19 B/P (MAP) 133/77 163/78 (106) 163/78 Pulse Ox 92 92 O2 Delivery Room Air Room Air 05/19/17 05/19/17 05/19/17 05/19/17 19:15 19:20 20:16 23:00 Temp 98.1 97.7 98.1 97.7 Pulse 66 70 Resp 22 18 B/P (MAP) 103/50 (67) 110/63 (79) Pulse Ox 91 100 O2 Delivery Room Air Room Air Nasal Cannula Nasal Cannula O2 Flow Rate 2.0 05/20/17 05/20/17 03:05 07:00 Temp 98.4 97.5 98.4 97.5 Pulse 66 64 Resp 18 18 B/P (MAP) 102/56 (71) 122/74 (90) Pulse Ox 99 96 O2 Delivery Nasal Cannula Nasal Cannula O2 Flow Rate 2.0 2.0 Intake and Output 05/19/17 05/19/17 05/20/17 15:00 23:00 07:00 Intake Total 880 ml 480 ml Output Total 200 ml Balance 880 ml 280 ml CLEMENTINE GARCIA MD May 20, 2017 09:37
[2017-05-20] MEDS ORDERED: ONDA8TAB9 PO (09:39)
[2017-05-20] MEDS ORDERED: PANT40TA3 PO (09:39)
[2017-05-20 11:00] VITALS: BP 124/58
[2017-05-20] MEDS ORDERED: PROPOFOL 20 ML IV ONE (11:30)
[2017-05-20 11:39] LABS: % SAT IRON 34 % (15-34); IRON,SERUM 63 ug/dL (50-170)
--- NOTE | 2017-05-20 11:41 | PDOC4 ---
PROCEDURE Procedure EGD Indication: dyspepsia/NCCP Meds: per anesthesia Findings: E--Grade I esophagitis at 40cm. G--moderate-sized HH with associated "Jakob lesions" D--Normal to second portion. evangelina. well. IMP: Reflux esophagitis HH "Jakob lesions"; could contribute to any ELLYN if present. REC: PPI, at least 6-8 weeks. Consider chronic. OK with us to dismiss. If ELLYN, po iron. Should consider one screening colonoscopy. Thanks. ARJUN PELAEZ MD May 20, 2017 11:41
[2017-05-20] MEDS: ASPIRIN CHEWABLE 81 MG TABLET. PO SCH (12:50)
[2017-05-20] MEDS: CALCITRIOL 0.25 MCG CAPSULE. PO SCH (12:50)
[2017-05-20] MEDS: ALLOPURINOL 100 MG TABLET. PO SCH (12:50)
[2017-05-20] MEDS: EZETIMIBE 10 MG TABLET. PO SCH (12:51)
[2017-05-20] MEDS: HYDROcodone/APAP 7.5/325MG 1 TAB TABLET PO SCH (12:51)
[2017-05-20] MEDS: DULoxetine HCL 30 MG CAPSULE.DR PO SCH (12:52)
[2017-05-20] MEDS: FUROSEMIDE 40 MG TABLET. PO SCH (12:52)
[2017-05-20] MEDS: DOCUSATE SODIUM 100 MG CAPSULE. PO SCH (12:52)
[2017-05-20] MEDS: CHOLECALCIFEROL (VITAMIN D3) 1,000 UNIT TABLET PO SCH (12:52)
[2017-05-20] MEDS: CARVEDILOL 12.5 MG TABLET. PO SCH (12:53)
[2017-05-20] MEDS: LOSARTAN POTASSIUM 50 MG TABLET. PO SCH (12:53)
[2017-05-20 12:54] VITALS: BP 109/64
[2017-05-20] MEDS: ISOSORBIDE MONONITRATE ER 30 MG TAB.ER.24H PO SCH (12:54)
--- NOTE | 2017-05-22 11:01 | PDOC ---
Provider Note Provider Note Discharge summary dictated. #[id number] CLEMENTINE GARCIA MD May 22, 2017 11:01
--- NOTE | 2017-05-22 11:13 | DS ---
DATE OF DISCHARGE: 05/20/2017 REASON FOR ADMISSION TO THE HOSPITAL: Chest pain. The patient has a known history of coronary artery disease and hiatal hernia. CONSULTATIONS: 1. Dr. Alas. 2. Dr. Sagastume. PROCEDURES DONE: 1. CT of abdomen and pelvis. 2. Ultrasound of the abdomen. 3. Nuclear stress test. 4. EGD. COMPLICATIONS NOTED: None. HOSPITAL COURSE: The patient is a 77-year-old female with known history of coronary artery disease and she has a history of CAD, CHF, hypertension, and hyperlipidemia. The patient was admitted to the hospital, had a stress test, was negative for ischemia. The patient had a CT of the abdomen and pelvis which shows a cyst in the right kidney. The patient had a gallbladder ultrasound, negative for gallstones and a 2 cm cyst in the kidney. The patient had an EGD, which shows a hiatal hernia with Jakob lesion and reflux esophagitis. The patient was feeling better and she was discharged home. FINAL DIAGNOSES: 1. Chest pain at this time secondary to hiatal hernia with Jakob lesions in the stomach. 2. History of heart bypass surgery 10 years ago. Stress test negative for ischemia. 3. Hypertension. 4. Hyperlipidemia. 5. Small cyst in the left kidney. Otherwise, the patient is doing well, discharged home. Follow with PCP, Dr. Feng in 1 week. [address]INE GARCIA MD DR: BETO/norma JOB#: [id number] / [id number]
== END 2017-05-20 14:00 | disposition home or self-care (01) | DRG 683 ==
LOC: ER 16:40 → UNDOADMIN 20:21 → 1 WEST ICU 20:21 → 2 NORTH 21:00
PROVIDERS: ADMIT Internal Medicine; ATTEND Internal Medicine
PROC: 0DJ08ZZ Inspection of Upper Intestinal Tract, Via Natural or Artificial Opening Endoscopic (ICD-10-PCS; principal; 2017-05-20 12:30)
DX: N17.9 Acute kidney failure, unspecified (principal); I42.9 Cardiomyopathy, unspecified; E11.22 Type 2 diabetes mellitus with diabetic chronic kidney disease; I13.0 Hypertensive heart and chronic kidney disease with heart failure and stage 1 through stage 4 chronic kidney disease, or unspecified chronic kidney disease; K44.9 Diaphragmatic hernia without obstruction or gangrene; I50.9 Heart failure, unspecified; K21.0 Gastro-esophageal reflux disease with esophagitis; K25.9 Gastric ulcer, unspecified as acute or chronic, without hemorrhage or perforation; I25.10 Atherosclerotic heart disease of native coronary artery without angina pectoris; E03.9 Hypothyroidism, unspecified; E04.2 Nontoxic multinodular goiter; E78.00 Pure hypercholesterolemia, unspecified; E78.5 Hyperlipidemia, unspecified; G47.33 Obstructive sleep apnea (adult) (pediatric); Z96.653 Presence of artificial knee joint, bilateral; N28.1 Cyst of kidney, acquired; N18.3 Chronic kidney disease, stage 3 (moderate); M79.7 Fibromyalgia; M10.9 Gout, unspecified; J42 Unspecified chronic bronchitis; M19.90 Unspecified osteoarthritis, unspecified site; Z86.73 Personal history of transient ischemic attack (TIA), and cerebral infarction without residual deficits; Z95.1 Presence of aortocoronary bypass graft; Z88.1 Allergy status to other antibiotic agents; Z98.51 Tubal ligation status
CPT/HCPCS: 36415; 74022; 74176; 76700; 78452; 80048; 80061; 80076; 81001; 82553; 83540; 83550; 83690; 83735; 83880; 84443; 84484; 85007; 85025; 85610; 87086; 93005; 93017; 96361; 96374; 96375; 96376; A9500; J2405; J2704; J2785; J3010; J7030; 99285-25

== ENCOUNTER 2018-01-05 07:46 | Emergency (ER) | payer MEDICARE, OTHER ==
[2018-01-05 08:37] LABS: ADD MAN DIFF? NO
[2018-01-05 08:46] LABS: BASO % 0 % (0-3); EOS # 0.1 x10^3/uL (0.0-0.7); EOS % 1 % (0-3); HEMATOCRIT 34.4 % (36.0-47.0); HEMOGLOBIN 11.4 g/dL (12.0-15.5); LYMPH # 1.6 x10^3/uL (1.0-4.8); LYMPH % 20 % (24-48); MEAN CORPUSCULAR HEMOGLOBIN 27 pg (25-35); MEAN CORPUSCULAR HGB CONC 33 g/dL (31-37); MEAN CORPUSCULAR VOLUME 80 fL (79-100); MONO # 0.4 x10^3/uL (0.0-1.1); MONO % 5 % (0-9); NEUT # 5.6 x10^3uL (1.8-7.7); NEUT % 73 % (31-73); PLATELET COUNT 155 x10^3/uL (140-400); RED BLOOD COUNT 4.31 x10^6/uL (3.50-5.40); RED CELL DISTRIBUTION WIDTH 14.6 % (11.5-14.5); WHITE BLOOD COUNT 7.7 x10^3/uL (4.0-11.0)
[2018-01-05] MEDS: IV NORMAL SALINE 1000ML BAG 1,000 ML IV (08:57)
[2018-01-05 09:02] LABS: BARBITURATES NEG (NEG); BENZODIAZEPINES NEG (NEG); CANNABINOIDS NEG (NEG); COCAINE NEG (NEG); METHADONE NEG (NEG); OPIATES NEG (NEG); PHENCYCLIDINE NEG (NEG)
[2018-01-05 09:04] LABS: AMPHETAMINE/METHAMPHETAMINE NEG (NEG)
[2018-01-05 09:05] LABS: ETHANOL, URINE NEG (NEG)
[2018-01-05 09:10] LABS: ANION GAP 4 (6-14); BILIRUBIN,URINE NEGATIVE (NEG); BLOOD UREA NITROGEN 18 mg/dL (7-20); BUN/CREATININE RATIO 11 (6-20); CALCIUM 10.3 mg/dL (8.5-10.1); CARBON DIOXIDE 30 mmol/L (21-32); CHLORIDE 104 mmol/L (98-107); CLARITY,URINE CLEAR; COLOR,URINE YELLOW; CREATININE 1.7 mg/dL (0.6-1.0); GFR 35.3; GLUCOSE 133 mg/dL (70-99); GLUCOSE,URINE NEGATIVE (NEG); NITRITE,URINE NEGATIVE (NEG); PH,URINE 7.5; POTASSIUM 3.8 mmol/L (3.5-5.1); PROTEIN,URINE 30 mg/dL (NEG-TRACE); SODIUM 138 mmol/L (136-145); UROBILINOGEN,URINE 0.2 mg/dL (0.2 mg/dL)
[2018-01-05 09:11] LABS: BACTERIA,URINE 0 /HPF (0-FEW); RBC,URINE 0 /HPF (0-2); SQUAMOUS EPITHELIAL CELL,UR MANY /LPF; WBC,URINE 0 /HPF (0-4)
[2018-01-05 09:17] LABS: ALBUMIN 3.4 g/dL (3.4-5.0); ALBUMIN/GLOBULIN RATIO 0.9 (1.0-1.7); ALK PHOS 63 U/L (46-116); ALT (SGPT) 27 U/L (14-59); AST (SGOT) 26 U/L (15-37); TOTAL BILIRUBIN 0.6 mg/dL (0.2-1.0); TOTAL PROTEIN 7.4 g/dL (6.4-8.2)
[2018-01-05] MEDS: ONDANSETRON PF 4 MG/2 ML VIAL. IV (10:09)
[2018-01-05] MEDS ORDERED: MORPHINE SULFATE 2 MG/ML DISP.SYRIN. IV (10:45)
== END 2018-01-05 12:27 | disposition home or self-care (01) ==
LOC: ER 12:27
DX: R11.2 Nausea with vomiting, unspecified (principal); R19.7 Diarrhea, unspecified; R10.13 Epigastric pain; R06.02 Shortness of breath; K21.9 Gastro-esophageal reflux disease without esophagitis; I11.0 Hypertensive heart disease with heart failure; I50.9 Heart failure, unspecified; E11.9 Type 2 diabetes mellitus without complications; E78.00 Pure hypercholesterolemia, unspecified; Z95.5 Presence of coronary angioplasty implant and graft; Z88.8 Allergy status to other drugs, medicaments and biological substances
CPT/HCPCS: 36415; 70450; 80053; 80307; 81001; 85025; 96361; 96374; 99285-25; J2405; J7030

== ENCOUNTER 2018-10-28 15:11 | Inpatient (IN) | payer OTHER ==
[~2018-10-28] VITALS: Ht 160 cm; Wt 74.9 kg
[~2018-10-28 15:11] MED LIST changes: +CARV12.511 PO; -CARV12.52 PO; -HYDR-2762 PO; +HYDR-2765 PO; -ISOS120T2 PO; +ISOS120T4 PO; -LABE100T3 PO; +LABE100T5 PO; +LOSA-73 PO; -LOSA50TA6 PO; +ONDA4TAB10 SL; +ONDA8TAB9 PO; +PANT40TA3 PO; +TRAZ-118 PO; -TRAZ50TA15 PO
--- NOTE | 2018-10-28 16:17 | EKG ---
[facility] [address] [place] [address] Test Date: 2018-10-28 Test Time: 15:28:14 Pat Name: LANETTE KING Department: Room: Gender: F Coc[place] Room Operator: : 1940 Requested By: GOLDIE ROTH Order Number: [id number] Reading MD: Javi Casanova Measurements Intervals [place] Rate: 75 P: 11 [place]: 200 QRS: -26 QRSD: 124 T: 157 QT: 396 QTc: 445 Interpretive Statements SINUS RHYTHM LEFTWARD AXIS LVH WITH REPOLARIZATION ABNORMALITY NONSPECIFIC ST-T WAVE CHANGES. Electronically Signed On 10-30-2018 9:57:38 CDT by Javi Casanova
[2018-10-28] MEDS ORDERED: ACETAMINOPHEN 500 MG TABLET PO ONE (16:30)
[2018-10-28] MEDS ORDERED: fentaNYL PF VIAL 100 MCG/2 ML VIAL IV ONE (16:30)
[2018-10-28] MEDS ORDERED: fentaNYL PF VIAL 100 MCG/2 ML VIAL IV PRN (16:30)
[2018-10-28 16:34] LABS: BASO % 0 % (0-3); EOS # 0.3 x10^3/uL (0.0-0.7); EOS % 5 % (0-3); HEMOGLOBIN 11.5 g/dL (12.0-15.5); LYMPH # 1.2 x10^3/uL (1.0-4.8); LYMPH % 19 % (24-48); MEAN CORPUSCULAR HEMOGLOBIN 26 pg (25-35); MEAN CORPUSCULAR HGB CONC 32 g/dL (31-37); MEAN CORPUSCULAR VOLUME 81 fL (79-100); MONO # 0.6 x10^3/uL (0.0-1.1); MONO % 10 % (0-9); NEUT # 4.2 x10^3uL (1.8-7.7); NEUT % 66 % (31-73); PLATELET COUNT 148 x10^3/uL (140-400); RED BLOOD COUNT 4.44 x10^6/uL (3.50-5.40); RED CELL DISTRIBUTION WIDTH 14.6 % (11.5-14.5); WHITE BLOOD COUNT 6.3 x10^3/uL (4.0-11.0)
--- NOTE | 2018-10-28 16:37 | PHYS DOC ---
Past Medical History Past Medical History: CVA, Diabetes-Type II, High Cholesterol, Heart Disease, Hypertension, Other Additional Past Medical Histor: Espohgeal reflux. Past Surgical History: Angioplasty, Coronary Bypass Surgery Additional Past Surgical Histo: bilat knee replacement, R) FA nerve graft,CABG x5 Alcohol Use: None Drug Use: None Adult General Chief Complaint Chief Complaint: HEADACHE HPI HPI Patient is a 78-year-old female who presents to the emergency department for evaluation. She states that at about noon today, she was taking a shower, and became dizzy, described as a sense of rotation, as if the room was spinning. She also states she developed a frontal headache. She did not have any vision changes, numbness, weakness, speech difficulties, neck pain, fevers or chills, nausea or vomiting. She does not have a history of similar headaches in the past . She denies any chest pain or shortness of breath. She states she did have a stroke in the past, over 10 years ago, which resulted in transient right-sided weakness which has been improved with therapy. She does not have any significant residual deficits. There are no definite alleviating or exacerbating factors to her symptoms otherwise. Review of Systems Review of Systems Constitutional: Denies fever or chills [] Eyes: Denies change in visual acuity, redness, or eye pain [] HENT: Denies nasal congestion or sore throat [] Respiratory: Denies cough or shortness of breath [] Cardiovascular: No additional information not addressed in HPI [] GI: Denies abdominal pain, nausea, vomiting, bloody stools or diarrhea [] : Denies dysuria or hematuria [] Musculoskeletal: Denies back pain or joint pain [] Integument: Denies rash or skin lesions [] Neurologic: Denies focal weakness or sensory changes [] Endocrine: Denies polyuria or polydipsia [] All other systems were reviewed and found to be within normal limits, except as documented in this note. Current Medications Current Medications Current Medications Medications (Trade) Dose Ordered Sig/Wilberto Start Time Stop Time Status Last Admin Dose Admin Acetaminophen (Tylenol) 1,000 mg 1X ONCE 10/28/18 16:30 10/28/18 16:31 DC 10/28/18 16:34 1,000 MG Fentanyl Citrate (Fentanyl 2ml Vial) 50 mcg 1X ONCE 5/1/19 16:30 10/28/18 16:31 DC 10/28/18 16:34 50 MCG Morphine Sulfate (Morphine Sulfate) 2 mg PRN Q2HR PRN 10/28/18 18:30 10/29/18 18:29 Allergies Allergies Allergies Coded Allergies Type Severity Reaction Last Updated Verified lisinopril Allergy Intermediate COUGH 03/12/14 Yes Physical Exam Physical Exam PHYSICAL EXAM: CONSTITUTIONAL: Well developed, well nourished HEAD: normocephalic, atraumatic. Temporal arteries are palpable bilaterally and not particularly tender. EENT: PERRL, EOMI. Conjunctivae normal color, sclerae non-icteric; moist mucous membranes. NECK: Supple, non-tender; no meningismus. There are no audible carotid bruits. LUNGS: Lungs CTA, breathing even and unlabored. Normal air movement. HEART: Regular rate and rhythm, no murmur CHEST: No deformity; non-tender ABDOMEN: The abdomen is soft, and non-tender, no masses or bruits. EXTREM: Normal ROM; no deformity, no calf tenderness. Normal pulses palpable in all extremities. There is no pedal edema. SKIN: No rash; no diaphoresis NEURO: Alert; normal speech and cognition; CN's grossly intact; strength grossly intact without focal deficit. Vskqms-carc-jcyrhh and heel diaz testing are normal. BACK: No CVA TTP. Current Patient Data Vital Signs Vital Signs Date Time Temp Pulse Resp B/P (MAP) Pulse Ox O2 Delivery O2 Flow Rate FiO2 10/28/18 18:07 79 16 95 10/28/18 15:25 98.3 148/76 (100) Room Air 98.3 Lab Values Laboratory Tests Test 10/28/18 15:30 White Blood Count 6.3 x10^3/uL (4.0-11.0) Red Blood Count 4.44 x10^6/uL (3.50-5.40) Hemoglobin 11.5 g/dL (12.0-15.5) L Hematocrit 36.0 % (36.0-47.0) Mean Corpuscular Volume 81 fL (79-100) Mean Corpuscular Hemoglobin 26 pg (25-35) Mean Corpuscular Hemoglobin Concent 32 g/dL (31-37) Red Cell Distribution Width 14.6 % (11.5-14.5) H Platelet Count 148 x10^3/uL (140-400) Neutrophils (%) (Auto) 66 % (31-73) Lymphocytes (%) (Auto) 19 % (24-48) L Monocytes (%) (Auto) 10 % (0-9) H Eosinophils (%) (Auto) 5 % (0-3) H Basophils (%) (Auto) 0 % (0-3) Neutrophils # (Auto) 4.2 x10^3uL (1.8-7.7) Lymphocytes # (Auto) 1.2 x10^3/uL (1.0-4.8) Monocytes # (Auto) 0.6 x10^3/uL (0.0-1.1) Eosinophils # (Auto) 0.3 x10^3/uL (0.0-0.7) Basophils # (Auto) 0.0 x10^3/uL (0.0-0.2) Erythrocyte Sedimentation Rate 32 (0-25) H Sodium Level 142 mmol/L (136-145) Potassium Level 3.3 mmol/L (3.5-5.1) L Chloride Level 103 mmol/L (98-107) Carbon Dioxide Level 30 mmol/L (21-32) Anion Gap 9 (6-14) Blood Urea Nitrogen 17 mg/dL (7-20) Creatinine 2.0 mg/dL (0.6-1.0) H Estimated GFR (Cockcroft-Gault) 29.2 BUN/Creatinine Ratio 9 (6-20) Glucose Level 100 mg/dL (70-99) H Calcium Level 10.1 mg/dL (8.5-10.1) Total Bilirubin 0.6 mg/dL (0.2-1.0) Aspartate Amino Transferase (AST) 22 U/L (15-37) Alanine Aminotransferase (ALT) 22 U/L (14-59) Alkaline Phosphatase 98 U/L (46-116) Troponin I Quantitative 0.034 ng/mL (0.000-0.055) C-Reactive Protein, Quantitative 1.6 mg/L (0-3.3) Total Protein 7.2 g/dL (6.4-8.2) Albumin 3.8 g/dL (3.4-5.0) Albumin/Globulin Ratio 1.1 (1.0-1.7) Laboratory Tests 10/28/18 15:30 Laboratory Tests 10/28/18 15:30 EKG EKG Normal sinus rhythm at a rate of 75 beats for minute, left axis deviation, normal intervals, left ventricular hypertrophy with lateral T wave inversion and nonspecific ST/T changes, not significantly changed compared to patient's prior EKG[] Radiology/Procedures Radiology/Procedures [PROCEDURE: CT HEAD WO CONTRAST CT HEAD WO CONTRAST History: Headache, dizziness Comparison: January 05, 2018 Technique: Noncontrast CT imaging was performed of the head. Exposure: One or more of the following individualized dose reduction techniques were utilized for this examination: 1. Automated exposure control 2. Adjustment of the mA and/or kV according to patient size 3. Use of iterative reconstruction technique. Findings: There is no evidence of acute intracranial hemorrhage. There is evidence for calcification carotid siphons and intradural vertebral arteries bilaterally. There is noted new intra-axial mass effect, midline shift, extra-axial fluid collection. There are small old lacunar infarcts of the bilateral thalami as seen previously. There is again multifocal at least moderate ill-defined low-density of the supratentorial parenchyma bilaterally. Ventricular size is similar. There is mild generalized supratentorial atrophy. Impression: 1. No acute intracranial abnormality is identified. There is again generalized supratentorial atrophy. There is again multifocal ill-defined low-density of the supratentorial parenchyma more commonly due to chronic microvascular ischemic disease in a patient this age. ] Course & Med Decision Making Course & Med Decision Making Pertinent Labs and Imaging studies reviewed. (See chart for details) []6:25 PM: The patient's condition remains stable. Her headache is still present, she still feels somewhat dizzy. She has no focal neurological findings. However, given the constellation of headache, dizziness, and history of prior stroke, imaging the patient's cerebral vasculature is appropriate. However, gi elida her chronically elevated creatinine, CT angiography is not an option to rule out vertebrobasilar insufficiency. MRI is not routinely available from the emergency department per hospital policy at this time. I discussed the case with Dr. Peter, who will admit the patient for further observation and MRI imaging of the cerebral vasculature Dragon Disclaimer Dragon Disclaimer This electronic medical record was generated, in whole or in part, using a voice recognition dictation system. Departure Departure Impression: Primary Impression: Headache Additional Impression: Dizziness Disposition: 09 ADMITTED INPATIENT Admitting Physician: Araceli Peter Condition: STABLE Referrals: JOSE A FOREMAN (PCP) Problem Qualifiers GOLDIE ROTH MD October 28, 2018 16:37
[2018-10-28 16:45] LABS: CALCIUM 10.1 mg/dL (8.5-10.1); GFR 29.2; POTASSIUM 3.3 mmol/L (3.5-5.1)
[2018-10-28 16:51] LABS: ALBUMIN 3.8 g/dL (3.4-5.0); ALBUMIN/GLOBULIN RATIO 1.1 (1.0-1.7); C-REACTIVE PROTEIN 1.6 mg/L (0-3.3); TOTAL BILIRUBIN 0.6 mg/dL (0.2-1.0); TOTAL PROTEIN 7.2 g/dL (6.4-8.2)
--- NOTE | 2018-10-28 17:33 | RAD ---
CT HEAD WO CONTRAST History: Headache, dizziness Comparison: January 05, 2018 Technique: Noncontrast CT imaging was performed of the head. Exposure: One or more of the following individualized dose reduction techniques were utilized for this examination: 1. Automated exposure control 2. Adjustment of the mA and/or kV according to patient size 3. Use of iterative reconstruction technique. Findings: There is no evidence of acute intracranial hemorrhage. There is evidence for calcification carotid siphons and intradural vertebral arteries bilaterally. There is noted new intra-axial mass effect, midline shift, extra-axial fluid collection. There are small old lacunar infarcts of the bilateral thalami as seen previously. There is again multifocal at least moderate ill-defined low-density of the supratentorial parenchyma bilaterally. Ventricular size is similar. There is mild generalized supratentorial atrophy. Impression: 1. No acute intracranial abnormality is identified. There is again generalized supratentorial atrophy. There is again multifocal ill-defined low-density of the supratentorial parenchyma more commonly due to chronic microvascular ischemic disease in a patient this age. Electronically signed by: Aristides Garcia MD (10/28/2018 5:30 PM) [id number]
[2018-10-28] MEDS ORDERED: MORPHINE SULFATE 2 MG/ML VIAL. IV PRN (18:30)
--- NOTE | 2018-10-28 20:30 | NUR ---
The patient, LANETTE KING, 78 y/o, F admitted by CLEMENTINE GARCIA MD, was given written information regarding hospital policies, unit procedures and contact persons. Valuables were checked and left in room with patient. Vitals stable, patient in bed resting comfortably, call light in reach.
[2018-10-28 21:06] VITALS: BP 127/59
[2018-10-28 22:46] VITALS: BP 115/61
[2018-10-28] MEDS ORDERED: CIME300S4 PO (22:52)
[2018-10-28] MEDS ORDERED: MIRA25TA PO (22:56)
[2018-10-28] MEDS ORDERED: FESO8TAB PO (22:58)
[2018-10-29 03:20] VITALS: BP 143/72
[2018-10-29 07:00] VITALS: BP 128/74
[2018-10-29] MEDS ORDERED: ONDANSETRON ODT 4 MG TAB.RAPDIS. PO PRN (08:15)
[2018-10-29] MEDS ORDERED: ONDANSETRON PF 4 MG/2 ML VIAL. IV PRN (08:15)
[2018-10-29] MEDS: EZETIMIBE 10 MG TABLET. PO SCH (08:31)
[2018-10-29] MEDS: CALCITRIOL 0.25 MCG CAPSULE. PO SCH ×2 (08:31→20:33)
[2018-10-29] MEDS: ISOSORBIDE MONONITRATE ER 30 MG TAB.ER.24H PO SCH (08:31)
[2018-10-29] MEDS: DOCUSATE SODIUM 100 MG CAPSULE. PO SCH (08:31)
[2018-10-29] MEDS: FUROSEMIDE 40 MG TABLET. PO SCH ×2 (08:32→16:14)
[2018-10-29] MEDS: DULoxetine HCL 30 MG CAPSULE.DR PO SCH (08:32)
[2018-10-29] MEDS: ASPIRIN CHEWABLE 81 MG TABLET. PO SCH (08:32)
[2018-10-29] MEDS: CARVEDILOL 12.5 MG TABLET. PO SCH ×2 (08:32→16:13)
[2018-10-29] MEDS: OXYBUTYNIN CHLORIDE 5 MG TABLET PO SCH ×3 (08:32→20:34)
[2018-10-29] MEDS: NON FORMULARY ITEM (Mirabegron (Myrbetriq) 25 MG) PO SCH (08:33)
[2018-10-29] MEDS: LOSARTAN POTASSIUM 50 MG TABLET. PO SCH (08:33)
[2018-10-29 09:30] LABS: CALCIUM 9.9 mg/dL (8.5-10.1); CREATININE 1.8 mg/dL (0.6-1.0); GFR 32.9; POTASSIUM 3.4 mmol/L (3.5-5.1)
[2018-10-29 09:39] LABS: BASO % 1 % (0-3); EOS # 0.4 x10^3/uL (0.0-0.7); EOS % 8 % (0-3); HEMATOCRIT 35.3 % (36.0-47.0); HEMOGLOBIN 11.3 g/dL (12.0-15.5); LYMPH # 1.4 x10^3/uL (1.0-4.8); LYMPH % 27 % (24-48); MEAN CORPUSCULAR HEMOGLOBIN 26 pg (25-35); MEAN CORPUSCULAR HGB CONC 32 g/dL (31-37); MEAN CORPUSCULAR VOLUME 81 fL (79-100); MONO # 0.5 x10^3/uL (0.0-1.1); MONO % 11 % (0-9); NEUT # 2.6 x10^3uL (1.8-7.7); NEUT % 54 % (31-73); PLATELET COUNT 135 x10^3/uL (140-400); RED BLOOD COUNT 4.38 x10^6/uL (3.50-5.40); RED CELL DISTRIBUTION WIDTH 14.6 % (11.5-14.5); WHITE BLOOD COUNT 4.9 x10^3/uL (4.0-11.0)
--- NOTE | 2018-10-29 10:09 | PDOC ---
Provider Note Provider Note Pt seen.H&P dictated.#[id number]. CLEMENTINE GARCIA MD October 29, 2018 10:09
[2018-10-29] MEDS ORDERED: POTASSIUM CHLORIDE 20 MEQ TABLET.ER. PO ONE (10:15)
[2018-10-29] MEDS: PANTOPRAZOLE 40 MG TABLET.DR. PO SCH (10:35)
[2018-10-29 11:00] VITALS: BP 115/50
--- NOTE | 2018-10-29 12:38 | NUR ---
SS following up with discharge planning. SS reviewed pt chart. Pt is from home and is currently on room air. No discharge needs noted at this time. SS will continue to follow for discharge planning.
--- NOTE | 2018-10-29 13:15 | HP ---
ADMIT DATE: 10/28/2018 ATTENDING PHYSICIAN: Dr. Garcia. PRIMARY CARE PHYSICIAN: Dr. Foreman. REASON FOR ADMISSION TO THE HOSPITAL: Headache, dizziness. HISTORY OF PRESENT ILLNESS: The patient is a 78-year-old female who has history of previous stroke, diabetes, hypertension, hyperlipidemia, heart disease, and she was having severe headache, dizziness and came to the Emergency Room. CT head was negative. The patient is scheduled to have an MRI and seen by Neurology, was admitted to the hospital. PAST SURGICAL HISTORY: Angioplasty, heart bypass surgery, bilateral knee replacement, nerve graft. PERSONAL HISTORY: No history of smoking, alcohol, drug abuse. SOCIAL HISTORY: The patient lives with her daughter. She ambulates with a cane or a walker. PAST MEDICAL HISTORY: As mentioned, had a stroke, diabetes, hypertension, coronary artery disease, reflux disease. ALLERGIES: LISINOPRIL CAUSES HIVES, COUGH. MEDICATIONS AT HOME: The patient is on aspirin 81 mg daily, Coreg 12.5 twice a day, cimetidine 300 mg at bedtime, Colace 100 mg daily, Cymbalta 60 mg daily, Zetia 10 mg daily. Toviaz for the bladder 8 mg daily, Lasix 40 mg twice a day, isosorbide 120 mg daily, losartan 50 mg daily. Myrbetriq 25 mg daily, Zofran for nausea, Protonix 40 mg daily, Zantac 300 mg at bedtime, Crestor 5 mg daily, calcitriol 0.25 twice a day. The patient was admitted to the hospital on 04/2017, had a stress test, CAT scan and EGD at that time. PHYSICAL EXAMINATION: GENERAL: The patient is pleasant, not in any distress. VITAL SIGNS: Temperature 98, pulse 80, respirations 20, blood pressure 127/58, 95% on room air. HEENT: Head is atraumatic. Pupils equal. Oral cavity: No congestion. NECK: Supple, no thyroid enlargement. JVD not elevated. CHEST: Symmetrical, scar of heart surgery. CARDIOVASCULAR: S1, S2. No murmurs. LUNGS: Clear to auscultation. No wheezing. ABDOMEN: Soft, bowel sounds present. The patient had a scar in the lower abdomen, has a tubal ligation. EXTERNAL GENITALIA: No Steward. RECTAL: Deferred. EXTREMITIES: No calf tenderness, no edema. Pulses 1+. NEUROLOGIC: No focal deficits. Moving all extremities. LABORATORY DATA: Shows a white count of 6, hemoglobin 11.5, platelets 148. Electrolytes show sodium 142, potassium 3.3, chloride 103, bicarb 30, anion gap 9, BUN 17, creatinine 2.0, calcium 10. LFTs were normal. CT head, no acute ischemic changes. FINAL IMPRESSION: 1. Severe headache. 2. History of previous stroke. 3. Coronary artery disease, history of previous bypass surgery. 4. Hypertension. 5. Hyperlipidemia. 6. Lower pelvic pain. 7. Chronic kidney disease stage 3, creatinine 2. PLAN: At this time, was admit to hospital. CT was negative. MRI was ordered. Neurology consult. We will also get a pelvic sonogram and a SUGAR CHIPPER MACHINE OPERATOR consult for pelvic exam. Also check a urine for UTI. Resume home medications. CLEMENTINE GARCIA MD DR: BETO/norma JOB#: [id number] / [id number] ruddy FOREMAN DR
--- NOTE | 2018-10-29 13:56 | RAD ---
Examination: Ultrasound kidneys HISTORY: History of renal failure COMPARISON: None available. FINDINGS: The right kidney measures 9.4 x 3.8 x 2.7 cm. The left kidney measures 10.2 x 3.9 x 4.3 cm. There is a 1.1 cm cyst identified in the superior pole of the right kidney. There are 2 small cysts identified in the left kidney measuring 2.7 cm and 1.2 cm. Examination limited due to bowel gas. The bilateral kidneys are mildly echogenic. The urinary bladder is within normal limits. No evidence of hydronephrosis. IMPRESSION: 1. Bilateral renal cysts. 2. Mild echogenic appearing kidneys probably medical renal disease. Electronically signed by: Raimundo Sales MD (10/29/2018 1:54 PM) [id number]
[2018-10-29] MEDS ORDERED: ONDANSETRON ODT 4 MG TAB.RAPDIS. PO SCH (14:00)
--- NOTE | 2018-10-29 14:05 | PDOC2 ---
NEUROLOGY CONSULT Date of Admission Date of Admission DATE: 10/29/18 TIME: 13:58 Reason for Consult Reason for Consult: Dizziness, headache. I was not notified of this consult Referring Physician Referring Physician: Dr. Peter Source Source: Caregiver, Chart review, Patient History of Present Illness History of Present Illness The patient is a 78-year-old right-handed female who was taking a shower at about noon yesterday when she developed a headache and dizziness. This was room- spinning vertigo but there was no diplopia, dysphagia, dysarthria, numbness, or weakness. He does have a history of stroke in the past from which she made a full recovery. I last saw her 2 years ago when she was admitted for syncope, which we thought was related to urinary tract infection. She denies any current urinary symptoms. Past Medical History Cardiovascular: CAD, HTN, PA, Syncope, Hyperlipidemia Pulmonary: COPD, Other (sleep apnea) CENTRAL NERVOUS SYSTEM: Carpal Tunnel Syndrome, CVA Hepatobiliary: Cholelithiasis Musculoskeletal: Osteoarthritis Rheumatologic: Gout Renal/: Chronic renal insuff Endocrine: Diabetes, Hypothyroidism Past Surgical History Past Surgical History: CABG, Total knee replacement (bilateral), Tubal Ligation, Other (right carpal tunnel) Family History Family History: CAD Social History Social History , lives with daughter, no alcohol or tobacco Current Medications Current Medications Current Medications Fentanyl Citrate (Fentanyl 2ml Vial) 25 mcg PRN Q15MIN PRN IV PAIN GREATER THAN 3/10; Start 10/28/18 at 16:30; Stop 10/29/18 at 16:29 Acetaminophen (Tylenol) 1,000 mg 1X ONCE PO Last administered on 10/28/18at 16:34; Start 10/28/18 at 16:30; Stop 10/28/18 at 16:31; Status DC Fentanyl Citrate (Fentanyl 2ml Vial) 50 mcg 1X ONCE IV Last administered on 10/28/18at 16:34; Start 10/28/18 at 16:30; Stop 10/28/18 at 16:31; Status DC Morphine Sulfate (Morphine Sulfate) 2 mg PRN Q2HR PRN IV PAIN; Start 10/28/18 at 18:30; Stop 10/29/18 at 18:29 Ondansetron HCl (Zofran) 4 mg PRN Q6HRS PRN IV NAUSEA/VOMITING Last administered on 10/29/18 08:33; Start 10/29/18 at 08:15 Aspirin (Children'S Aspirin) 81 mg DAILY PO Last administered on 10/29/18 08:32; Start 10/29/18 at 09:00 Carvedilol (Coreg) 12.5 mg BIDWMEALS PO Last administered on 10/29/18 08:32; Start 10/29/18 at 09:00 Docusate Sodium (Colace) 100 mg DAILY PO Last administered on 10/29/18 08:31; Start 10/29/18 at 09:00 EZETIMIBE (Zetia) 10 mg DAILY08 PO Last administered on 10/29/18 08:31; Start 10/29/18 at 09:00 Furosemide (Lasix) 60 mg BID92 PO Last administered on 10/29/18 08:32; Start 10/29/18 at 09:00 Losartan Potassium (Cozaar) 50 mg DAILY08 PO Last administered on 10/29/18 08:3 3; Start 10/29/18 at 09:00 Ondansetron HCl (Zofran Odt) 4 mg Q8HRS PO ; Start 10/29/18 at 14:00; Status UNV Famotidine (Pepcid) 20 mg QHS PO ; Start 10/29/18 at 21:00 Duloxetine HCl (Cymbalta) 60 mg DAILY PO Last administered on 10/29/18 08:32; Start 10/29/18 at 09:00 Oxybutynin Chloride (Ditropan) 5 mg [id number] PO Last administered on 10/29/18 08:32; Start 10/29/18 at 09:00 Isosorbide Mononitrate (Imdur) 120 mg DAILY PO Last administered on 10/29/18 08:31; Start 10/29/18 at 09:00 Non-Formulary Medication (Mirabegron (Myrbetriq)) 25 mg DAILY PO ; Start 10/29/18 at 09:00; Status UNV Ondansetron HCl (Zofran Odt) 8 mg PRN Q8HRS PRN PO NAUSEA/VOMITING; Start 10/29/18 at 08:15 Non-Formulary Medication (Ranitidine Hcl ) 300 mg HS PO ; Start 10/29/18 at 21:00; Status UNV Atorvastatin Calcium (Lipitor) 20 mg QHS PO ; Start 10/29/18 at 21:00 Calcitriol (Rocaltrol) 0.25 mcg BID PO Last administered on 10/29/18at 08:31; Start 10/29/18 at 09:00 Pantoprazole Sodium (Protonix) 40 mg DAILYAC PO Last administered on 10/29/18at 10:35; Start 10/29/18 at 11:30 Potassium Chloride (Klor-Con) 20 meq DAILYWBKFT PO ; Start 10/30/18 at 08:00 Potassium Chloride (Klor-Con) 20 meq 1X ONCE PO Last administered on 10/29/18at 10:35; Start 10/29/18 at 10:15; Stop 10/29/18 at 10:16; Status DC Heparin Sodium (Porcine) (Heparin Sodium) 5,000 unit Q12HR SQ ; Start 10/29/18 at 21:00 Active Scripts Active Zofran Odt (Ondansetron) 4 Mg Tab.rapdis 1 Tab SL Q8HRS Zofran (Ondansetron Hcl) 8 Mg Tablet 8 Mg PO BID PRN Protonix (Pantoprazole Sodium) 40 Mg Tablet.dr 1 Tab PO DAILY Lasix (Furosemide) 40 Mg Tablet 60 Mg PO BID Reported Toviaz (Fesoterodine Fumarate) 8 Mg Tab.er.24h 1 Tab PO DAILY Myrbetriq (Mirabegron) 25 Mg Tab.er.24h 25 Mg PO DAILY Cimetidine (Cimetidine Hcl) 300 Mg/5 Ml Solution 300 Mg PO HS Carvedilol (Carvedilol) 12.5 Mg Tablet 1 Tab PO BID Aspirin 81 Mg Tab.chew 1 Tab PO DAILY Ranitidine Hcl 300 Mg Capsule 300 Mg PO HS Stool Softener (Docusate Sodium) 100 Mg Capsule 100 Mg PO DAILY Zetia (Ezetimibe) 10 Mg Tablet 10 Mg PO DAILY08 Crestor (Rosuvastatin Calcium) 5 Mg Tablet 5 Mg PO HS Losartan Potassium 50 Mg Tablet 50 Mg PO DAILY08 Isosorbide Mononitrate Er (Isosorbide Mononitrate) 120 Mg Tab.er.24h 120 Mg PO DAILY08 [Calcitrol] 0.25 BID Cymbalta (Duloxetine Hcl) 60 Mg Capsule.dr 60 Mg PO DAILY Allergies Allergies: Coded Allergies: lisinopril (Verified Allergy, Intermediate, COUGH, 03/12/14) ROS Review of System Negative for fever, chills, weight loss, chest pain, indigestion, hematochezia, melena, and dysuria. She has occasional dyspnea, has oxygen as needed at home. She is complaining of some pelvic pain here. Full 14-point review of systems is negative. Physical Exam Physical Examination General: Well-developed, well-nourished black female in no acute distress HEENT: Normocephalic andatraumatic. Tympanic membranes clear.Temporal arteriespulsatile and nontender Neck: Supple without bruit, no meningismus Musculoskeletal: Stability:see neurologic. Gait exam:see neurologic. Tone:see neurologic.Strength:see neurologic. Neurological: Mental Status:intact, orientation, memory, attention span/concentration, language, fund of knowledge normal. Cranial Nerves:Pupils equal and reactive to light, extraocular movements areintact, visual zheng are full to con frontation. Facial sensation is normal. There is no facial asymmetry. Vestibulo- ocular reflex is intact. Palate elevates and tongue protrudes in midline. All other cranial related problems are negative except as mentioned before.Reflexes:2+ and symmetric with flexor plantar responses. Motor:5/5 strength with normal tone and bulk. Coordination:Finger-nose finger and ptmk-cc-[id number] testing are normal. Rapid alternating movements and fine finger movements are intact. Gait:unsteady, falls to either side. Sensory:Normal pinprick, vibration, light touch, proprioception. Vitals VITALS Vital Signs Date Time Temp Pulse Resp B/P (MAP) Pulse Ox O2 Delivery O2 Flow Rate FiO2 10/29/18 11:00 98.1 66 16 115/50 (71) 85.0 98.1 10/29/18 08:00 Room Air 10/29/18 07:00 97 Labs Labs Laboratory Tests Test 10/28/18 15:30 10/29/18 08:45 White Blood Count 6.3 x10^3/uL (4.0-11.0) 4.9 x10^3/uL (4.0-11.0) Red Blood Count 4.44 x10^6/uL (3.50-5.40) 4.38 x10^6/uL (3.50-5.40) Hemoglobin 11.5 g/dL (12.0-15.5) 11.3 g/dL (12.0-15.5) Hematocrit 36.0 % (36.0-47.0) 35.3 % (36.0-47.0) Mean Corpuscular Volume 81 fL (79-100) 81 fL (79-100) Mean Corpuscular Hemoglobin 26 pg (25-35) 26 pg (25-35) Mean Corpuscular Hemoglobin Concent 32 g/dL (31-37) 32 g/dL (31-37) Red Cell Distribution Width 14.6 % (11.5-14.5) 14.6 % (11.5-14.5) Platelet Count 148 x10^3/uL (140-400) 135 x10^3/uL (140-400) Neutrophils (%) (Auto) 66 % (31-73) 54 % (31-73) Lymphocytes (%) (Auto) 19 % (24-48) 27 % (24-48) Monocytes (%) (Auto) 10 % (0-9) 11 % (0-9) Eosinophils (%) (Auto) 5 % (0-3) 8 % (0-3) Basophils (%) (Auto) 0 % (0-3) 1 % (0-3) Neutrophils # (Auto) 4.2 x10^3uL (1.8-7.7) 2.6 x10^3uL (1.8-7.7) Lymphocytes # (Auto) 1.2 x10^3/uL (1.0-4.8) 1.4 x10^3/uL (1.0-4.8) Monocytes # (Auto) 0.6 x10^3/uL (0.0-1.1) 0.5 x10^3/uL (0.0-1.1) Eosinophils # (Auto) 0.3 x10^3/uL (0.0-0.7) 0.4 x10^3/uL (0.0-0.7) Basophils # (Auto) 0.0 x10^3/uL (0.0-0.2) 0.0 x10^3/uL (0.0-0.2) Erythrocyte Sedimentation Rate 32 (0-25) Sodium Level 142 mmol/L (136-145) 142 mmol/L (136-145) Potassium Level 3.3 mmol/L (3.5-5.1) 3.4 mmol/L (3.5-5.1) Chloride Level 103 mmol/L (98-107) 104 mmol/L (98-107) Carbon Dioxide Level 30 mmol/L (21-32) 30 mmol/L (21-32) Anion Gap 9 (6-14) 8 (6-14) Blood Urea Nitrogen 17 mg/dL (7-20) 17 mg/dL (7-20) Creatinine 2.0 mg/dL (0.6-1.0) 1.8 mg/dL (0.6-1.0) Estimated GFR (Cockcroft-Gault) 29.2 32.9 BUN/Creatinine Ratio 9 (6-20) Glucose Level 100 mg/dL (70-99) 145 mg/dL (70-99) Calcium Level 10.1 mg/dL (8.5-10.1) 9.9 mg/dL (8.5-10.1) Total Bilirubin 0.6 mg/dL (0.2-1.0) Aspartate Amino Transf (AST/SGOT) 22 U/L (15-37) Alanine Aminotransferase (ALT/SGPT) 22 U/L (14-59) Alkaline Phosphatase 98 U/L (46-116) Troponin I Quantitative 0.034 ng/mL (0.000-0.055) C-Reactive Protein, Quantitative 1.6 mg/L (0-3.3) Total Protein 7.2 g/dL (6.4-8.2) Albumin 3.8 g/dL (3.4-5.0) Albumin/Globulin Ratio 1.1 (1.0-1.7) Laboratory Tests Test 10/28/18 15:30 10/29/18 08:45 White Blood Count 6.3 x10^3/uL (4.0-11.0) 4.9 x10^3/uL (4.0-11.0) Red Blood Count 4.44 x10^6/uL (3.50-5.40) 4.38 x10^6/uL (3.50-5.40) Hemoglobin 11.5 g/dL (12.0-15.5) 11.3 g/dL (12.0-15.5) Hematocrit 36.0 % (36.0-47.0) 35.3 % (36.0-47.0) Mean Corpuscular Volume 81 fL (79-100) 81 fL (79-100) Mean Corpuscular Hemoglobin 26 pg (25-35) 26 pg (25-35) Mean Corpuscular Hemoglobin Concent 32 g/dL (31-37) 32 g/dL (31-37) Red Cell Distribution Width 14.6 % (11.5-14.5) 14.6 % (11.5-14.5) Platelet Count 148 x10^3/uL (140-400) 135 x10^3/uL (140-400) Neutrophils (%) (Auto) 66 % (31-73) 54 % (31-73) Lymphocytes (%) (Auto) 19 % (24-48) 27 % (24-48) Monocytes (%) (Auto) 10 % (0-9) 11 % (0-9) Eosinophils (%) (Auto) 5 % (0-3) 8 % (0-3) Basophils (%) (Auto) 0 % (0-3) 1 % (0-3) Neutrophils # (Auto) 4.2 x10^3uL (1.8-7.7) 2.6 x10^3uL (1.8-7.7) Lymphocytes # (Auto) 1.2 x10^3/uL (1.0-4.8) 1.4 x10^3/uL (1.0-4.8) Monocytes # (Auto) 0.6 x10^3/uL (0.0-1.1) 0.5 x10^3/uL (0.0-1.1) Eosinophils # (Auto) 0.3 x10^3/uL (0.0-0.7) 0.4 x10^3/uL (0.0-0.7) Basophils # (Auto) 0.0 x10^3/uL (0.0-0.2) 0.0 x10^3/uL (0.0-0.2) Erythrocyte Sedimentation Rate 32 (0-25) Sodium Level 142 mmol/L (136-145) 142 mmol/L (136-145) Potassium Level 3.3 mmol/L (3.5-5.1) 3.4 mmol/L (3.5-5.1) Chloride Level 103 mmol/L (98-107) 104 mmol/L (98-107) Carbon Dioxide Level 30 mmol/L (21-32) 30 mmol/L (21-32) Anion Gap 9 (6-14) 8 (6-14) Blood Urea Nitrogen 17 mg/dL (7-20) 17 mg/dL (7-20) Creatinine 2.0 mg/dL (0.6-1.0) 1.8 mg/dL (0.6-1.0) Estimated GFR (Cockcroft-Gault) 29.2 32.9 BUN/Creatinine Ratio 9 (6-20) Glucose Level 100 mg/dL (70-99) 145 mg/dL (70-99) Calcium Level 10.1 mg/dL (8.5-10.1) 9.9 mg/dL (8.5-10.1) Total Bilirubin 0.6 mg/dL (0.2-1.0) Aspartate Amino Transf (AST/SGOT) 22 U/L (15-37) Alanine Aminotransferase (ALT/SGPT) 22 U/L (14-59) Alkaline Phosphatase 98 U/L (46-116) Troponin I Quantitative 0.034 ng/mL (0.000-0.055) C-Reactive Protein, Quantitative 1.6 mg/L (0-3.3) Total Protein 7.2 g/dL (6.4-8.2) Albumin 3.8 g/dL (3.4-5.0) Albumin/Globulin Ratio 1.1 (1.0-1.7) Images Images CT HEAD WO CONTRAST There is no evidence of acute intracranial hemorrhage. There is evidence for calcification carotid siphons and intradural vertebral arteries bilaterally. There is noted new intra-axial mass effect, midline shift, extra-axial fluid collection. There are small old lacunar infarcts of the bilateral thalami as seen previously. There is again multifocal at least moderate ill-defined low-density of the supratentorial parenchyma bilaterally. Ventricular size is similar. There is mild generalized supratentorial atrophy. Impression: 1. No acute intracranial abnormality is identified. There is again generalized supratentorial atrophy. There is again multifocal ill-defined low-density of the supratentorial parenchyma more commonly due to chronic microvascular ischemic disease in a patient this age. Assessment/Plan Assessment/Plan Impression: Vertigo and headache, doubt stroke, but still need to rule out a brainstem infarct. More likely this is peripheral vertigo History of stroke History of syncope Recommendations: MRI of the brain with MR angiogram of the head and neck. Additional studies depending on the results Rehabilitation modalities I discussed with the patient and her family. Thank you for letting me help with the patient's care. ROSA CHO MD October 29, 2018 14:05
--- NOTE | 2018-10-29 14:07 | RAD ---
Examination: Ultrasound pelvis HISTORY: History of pelvic pain COMPARISON: None available FINDINGS: The uterus measures 7.0 x 5.4 x 2.7 cm. The endometrium measures 5.9 mm in thickness. The right and left ovaries could not be identified. Numerous small calcifications identified in the uterine wall. Fluid identified in the imaged cavity IMPRESSION: 1. Endometrial fluid identified, nonspecific. Electronically signed by: Raimundo Sales MD (10/29/2018 2:04 PM) [email or web address]
--- NOTE | 2018-10-29 14:51 | RAD ---
Neck MRA without contrast History: Dizziness and headache Technique: NoncontrastMR angiography was performed of the neck. Comparison: None Findings: Determination of any degree of stenosis is based on NASCET criteria. Not fully evaluated, there is very large mass in the left neck extends to region of thyroid gland about 5 cm transverse by 2.6 cm AP by about 7.6 cm CC. There is also mass in the region of isthmus of thyroid gland about 3.5 cm transverse. There is antegrade flow of the bilateral vertebral arteries, dominant right vertebral artery and very hypoplastic left vertebral artery. Left neck mass results in degree of displacement of the left internal jugular vein and carotid artery. There is no significant stenosis of the visualized cervical internal carotid arteries or common carotid arteries. Proximal great vessels are not fully evaluated due to evaluate for stenosis. Patency of brachiocephalic artery can not be determined on this exam. Segmental nonvisualization of the distal vertebral arteries is probably due to plane of blood flow on this noncontrast exam. Impression: 1. 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 There is also a large mass in the region of isthmus of thyroid gland. 2. No significant stenosis is identified of the cervical internal carotid arteries or visualized common carotid arteries although proximal great vessels are not fully included for evaluation. Patency of the brachycephalic artery cannot be determined on this exam. Right vertebral artery is dominant, very hypoplastic left vertebral artery. Electronically signed by: Aristides Garcia MD (10/29/2018 2:48 PM) [email or web address]
[2018-10-29 15:00] VITALS: BP 105/58
--- NOTE | 2018-10-29 15:07 | RAD ---
MRA Brain History: Dizziness, headaches Technique: 3-D [id number] MR angiography was performed of the brain. Comparison: None Findings: Determination of any degree of stenosis is based on NASCET criteria. There is motion degradation. Basilar artery is primarily supplied by the right vertebral artery, very hypoplastic left intradural vertebral artery. There is some undulating irregularity of the tracey of the intradural vertebral arteries bilaterally. There is visualization of segments of bilateral PICAs. There is probable tiny right posterior communicating artery, not well-visualized on the left. AICAs are not well visualized. There is segmental visualization of the bilateral superior cerebellar arteries. There is suspected [id number] narrowing near the origin of the right P1 segment. There is visualization of the internal carotid arteries bilaterally at the skull base. No significant anterior communicating artery is visualized on this exam. No significant intracranial aneurysm is identified. There are more significant stenoses origins right M2 segments. There is also likely moderate narrowing near origin of left M2 segment. Impression: 1. Exam is degraded by motion. There is undulating wall irregularity of the intradural vertebral arteries bilaterally and more significant stenoses near origins right M2 segments, evidence of intracranial atherosclerotic disease. Left intradural vertebral artery is hypoplastic comparing with the right, basilar artery primarily supplied by the right. There is likely [id number] narrowing near the origin of the right P1 segment. Electronically signed by: Aristides Garcia MD (10/29/2018 3:03 PM) [facility] [place] [email or web address]
--- NOTE | 2018-10-29 15:17 | RAD ---
MRI Brain without contrast History: Dizziness and headaches Technique: Multiplanar, multisequential noncontrast MR imaging was performed of the brain. Comparison: September 30, 2016 Findings: Ventricular size is proportionate to the sulcal spaces, mild generalized supratentorial involutional change. There is no evidence of a recent infarct or intracranial mass effect. There is no midline shift or extra-axial fluid collection. There is again multifocal moderate T2 and FLAIR hyperintense signal abnormality of the supratentorial parenchyma bilaterally greatest of the frontal parietal white matter, also some involvement of bilateral basal ganglia. There is also some involvement of the bilateral vel. Extent of signal abnormality is similar. There are again old lacunar infarcts such as of the more central vel, left thalamus, bilateral basal ganglia, bilateral centrum semiovale. There is a tiny focus of hemosiderin deposition of the left periatrial white matter, new since previous exam. There is again heterogeneous signal of the posterior central and right nasopharynx with mixed signal characteristics, overall size about 2 cm AP by 1.2 cm transverse, fairly similar. There is similar very minimal fluid in the left mastoid air cells. Cerebellar tonsils are normal in location. There is multilevel cervical degenerative disc disease and spondylosis, multilevel cervical spinal stenosis poorly characterized on this exam although likely more significant at C4-C5 and to lesser degree C3-4. There is no new significant abnormality of the pineal gland or pituitary gland. There is some signal change associated with the small caliber left intradural vertebral artery likely component of plaque or thromboembolism. Impression: 1. There is no evidence of recent infarct or intracranial mass effect. 2. As seen on 2017 exam, there is multifocal moderate T2 and FLAIR hyperintense signal abnormality of the supratentorial parenchyma and to lesser degree of the vel probably due to chronic microvascular ischemic disease, also old lacunar infarcts as stated. 3. 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 4. There is cervical degenerative disc disease, spondylosis, and spinal stenosis. Electronically signed by: Aristides Garcia MD (10/29/2018 3:14 PM) [email or web address]
[2018-10-29 17:18] LABS: BILIRUBIN,URINE NEGATIVE (NEG); CLARITY,URINE CLEAR; COLOR,URINE YELLOW; NITRITE,URINE NEGATIVE (NEG); PH,URINE 5.5; PROTEIN,URINE NEGATIVE (NEG-TRACE); UROBILINOGEN,URINE 0.2 mg/dL (0.2 mg/dL)
[2018-10-29 17:30] LABS: BACTERIA,URINE FEW /HPF (0-FEW); HYALINE CASTS, URINE FEW /HPF; RBC,URINE RARE /HPF (0-2); SQUAMOUS EPITHELIAL CELL,UR MOD /LPF
[2018-10-29 19:20] VITALS: BP 131/58
[2018-10-29] MEDS: HEPARIN for SUB-Q USE 5,000 UNIT/ML VIAL. SQ SCH (20:39)
[2018-10-29] MEDS ORDERED: NON FORMULARY ITEM (Ranitidine Hcl 300 MG) PO SCH (21:00)
[2018-10-29] MEDS ORDERED: FAMOTIDINE 20 MG TABLET. PO SCH (21:00)
[2018-10-29] MEDS ORDERED: ATORVASTATIN CALCIUM 20 MG TABLET PO SCH (21:00)
[2018-10-29 23:03] VITALS: BP 105/60
[2018-10-30 03:48] VITALS: BP 116/66
[2018-10-30 05:10] LABS: ALBUMIN 3.3 g/dL (3.4-5.0); ALBUMIN/GLOBULIN RATIO 0.9 (1.0-1.7); CALCIUM 9.8 mg/dL (8.5-10.1); GFR 29.2; POTASSIUM 3.3 mmol/L (3.5-5.1); TOTAL BILIRUBIN 0.5 mg/dL (0.2-1.0); TOTAL PROTEIN 6.9 g/dL (6.4-8.2)
[2018-10-30 05:11] LABS: CHOLESTEROL/HDL RATIO 2.8
[2018-10-30 07:00] VITALS: BP 116/55
[2018-10-30] MEDS: PANTOPRAZOLE 40 MG TABLET.DR. PO SCH (07:30)
[2018-10-30] MEDS ORDERED: POTASSIUM CHLORIDE 20 MEQ TABLET.ER. PO SCH (08:00)
[2018-10-30] MEDS: FUROSEMIDE 40 MG TABLET. PO SCH (08:20)
[2018-10-30] MEDS: ISOSORBIDE MONONITRATE ER 30 MG TAB.ER.24H PO SCH (08:21)
[2018-10-30] MEDS: ASPIRIN CHEWABLE 81 MG TABLET. PO SCH (08:21)
[2018-10-30] MEDS: DULoxetine HCL 30 MG CAPSULE.DR PO SCH (08:21)
[2018-10-30] MEDS: CALCITRIOL 0.25 MCG CAPSULE. PO SCH (08:22)
[2018-10-30] MEDS: OXYBUTYNIN CHLORIDE 5 MG TABLET PO SCH (08:22)
[2018-10-30] MEDS: DOCUSATE SODIUM 100 MG CAPSULE. PO SCH (08:22)
[2018-10-30] MEDS: EZETIMIBE 10 MG TABLET. PO SCH (08:22)
[2018-10-30] MEDS: LOSARTAN POTASSIUM 50 MG TABLET. PO SCH (08:22)
[2018-10-30 08:27] VITALS: BP 116/55
[2018-10-30] MEDS: CARVEDILOL 12.5 MG TABLET. PO SCH (08:27)
[2018-10-30] MEDS: HEPARIN for SUB-Q USE 5,000 UNIT/ML VIAL. SQ SCH (08:35)
[2018-10-30] MEDS: NON FORMULARY ITEM (Mirabegron (Myrbetriq) 25 MG) PO SCH (08:44)
--- NOTE | 2018-10-30 09:44 | PDOC ---
PROGRESS NOTES Subjective Subjective feels better ,want to go home Objective Objective Vital Signs Date Time Temp Pulse Resp B/P (MAP) Pulse Ox O2 Delivery O2 Flow Rate FiO2 10/30/18 08:27 116/55 10/30/18 07:00 98.5 66 19 96 98.5 10/29/18 23:03 Nasal Cannula 10/29/18 19:20 2.0 Intake and Output 10/30/18 07:00 Intake Total 1160 ml Balance 1160 ml Intake Oral 1160 ml # Voids 2 Physical Exam Abdomen: Normal bowel sounds, Soft Heart: Regular rate, Normal S1 Extremities: No clubbing General: Alert HEENT: Atraumatic Lungs: Clear to auscultation MUSCULOSKELETAL: No swelling, Osteoarthritic changes both hands Neck: Supple Neuro: Normal speech Psych/Mental Status: Mental status NL Skin: No breakdown Diagnosis Problem List Problems Medical Problems: (1) Dizziness Status: Acute (2) Headache Status: Acute Assessment Assessment Problems Medical Problems: (1) Dizziness Status: Acute (2) Headache Status: Acute FINAL IMPRESSION: 1. Severe headache. 2. History of previous stroke. 3. Coronary artery disease, history of previous bypass surgery. 4. Hypertension. 5. Hyperlipidemia. 6. Lower pelvic pain. 7. Chronic kidney disease stage 3, creatinine 2. PLAN: feels better mri brain -neg for new cva. MRA_neg. thyroid mass in neck. sono kidney ok cr 2.0 stable,pot 3.2 low replace sono pelvis ,endometrial fluid? recommend [employer] exam. At this time, was admit to hospital. CT was negative. MRI was ordered. Neurology consult. We will also get a pelvic sonogram and a [employer] consult for pelvic exam. Also check a urine for UTI. Resume home medications. Plan Plan of Care Problems Medical Problems: (1) Dizziness Status: Acute (2) Headache Status: Acute Comment Review of Relevant I have reviewed the following items holly (where applicable) has been applied. Labs Laboratory Tests Test 10/29/18 16:15 10/30/18 04:00 Urine Collection Type Unknown Urine Color Yellow Urine Clarity Clear Urine pH 5.5 Urine Specific Dennison 1.015 Urine Protein Negative mg/dL (NEG-TRACE) Urine Glucose (UA) Negative mg/dL (NEG) Urine Ketones (Stick) Negative mg/dL (NEG) Urine Blood Negative (NEG) Urine Nitrite Negative (NEG) Urine Bilirubin Negative (NEG) Urine Urobilinogen Dipstick 0.2 mg/dL (0.2 mg/dL) Urine Leukocyte Esterase Negative (NEG) Urine RBC Rare /HPF (0-2) Urine WBC 5-10 /HPF (0-4) Urine Squamous Epithelial Cells Mod /LPF Urine Bacteria Few /HPF (0-FEW) Urine Hyaline Casts Few /HPF Urine Mucus Mod /LPF Sodium Level 144 mmol/L (136-145) Potassium Level 3.3 mmol/L (3.5-5.1) Chloride Level 106 mmol/L (98-107) Carbon Dioxide Level 31 mmol/L (21-32) Anion Gap 7 (6-14) Blood Urea Nitrogen 21 mg/dL (7-20) Creatinine 2.0 mg/dL (0.6-1.0) Estimated GFR (Cockcroft-Gault) 29.2 BUN/Creatinine Ratio 11 (6-20) Glucose Level 107 mg/dL (70-99) Calcium Level 9.8 mg/dL (8.5-10.1) Total Bilirubin 0.5 mg/dL (0.2-1.0) Aspartate Amino Transf (AST/SGOT) 18 U/L (15-37) Alanine Aminotransferase (ALT/SGPT) 18 U/L (14-59) Alkaline Phosphatase 82 U/L (46-116) Total Protein 6.9 g/dL (6.4-8.2) Albumin 3.3 g/dL (3.4-5.0) Albumin/Globulin Ratio 0.9 (1.0-1.7) Triglycerides Level 68 mg/dL (0-150) Cholesterol Level 111 mg/dL (0-200) LDL Cholesterol, Calculated 58 mg/dL (0-100) VLDL Cholesterol, Calculated 14 mg/dL (0-40) Non-HDL Cholesterol Calculated 72 mg/dL (0-129) HDL Cholesterol 39 mg/dL (40-60) Cholesterol/HDL Ratio 2.8 Thyroid Stimulating Hormone (TSH) 0.563 uIU/mL (0.358-3.74) Medications Current Medications Atorvastatin Calcium (Lipitor) 20 mg QHS PO Last administered on 10/29/18at 20:34; Start 10/29/18 at 21:00 Famotidine (Pepcid) 20 mg QHS PO Last administered on 10/29/18at 20:34; Start 10/29/18 at 21:00 Heparin Sodium (Porcine) (Heparin Sodium) 5,000 unit Q12HR SQ Last administered on 10/30/18at 08:35; Start 10/29/18 at 21:00 Non-Formulary Medication (Ranitidine Hcl ) 300 mg HS PO ; Start 10/29/18 at 21:00; Status UNV Ondansetron HCl (Zofran Odt) 4 mg Q8HRS PO ; Start 10/29/18 at 14:00; Status UNV Pantoprazole Sodium (Protonix) 40 mg DAILYAC PO Last administered on 10/30/18 07:30; Start 10/29/18 at 11:30 Potassium Chloride (Klor-Con) 20 meq 1X ONCE PO Last administered on 10/29/18 10:35; Start 10/29/18 at 10:15; Stop 10/29/18 at 10:16; Status DC Potassium Chloride (Klor-Con) 20 meq DAILYWBKFT PO Last administered on 10/30/18at 08:20; Start 10/30/18 at 08:00 Vitals/I & O Vital Sign - Last 24 Hours 10/29/18 10/29/18 10/29/18 10/29/18 11:00 15:00 16:13 19:20 Temp 98.1 98.2 98.3 98.1 98.2 98.3 Pulse 66 64 66 63 Resp 16 16 20 B/P (MAP) 115/50 (71) 105/58 (74) 115/50 131/58 (82) Pulse Ox 99 99 O2 Delivery Room Air Nasal Cannula O2 Flow Rate 85.0 2.0 10/29/18 10/29/18 10/30/18 10/30/18 19:45 23:03 03:48 07:00 Temp 98.5 97.7 98.5 98.5 97.7 98.5 Pulse 64 66 66 Resp 20 20 19 B/P (MAP) 105/60 (75) 116/66 (83) 116/55 (75) Pulse Ox 94 96 96 O2 Delivery Room Air Nasal Cannula 10/30/18 10/30/18 10/30/18 08:21 08:22 08:27 B/P (MAP) 116/55 116/55 116/55 Intake and Output 10/29/18 10/29/18 10/30/18 15:00 23:00 07:00 Intake Total 860 ml 150 ml 150 ml Balance 860 ml 150 ml 150 ml CLEMENTINE GARCIA MD October 30, 2018 09:44
[2018-10-30] MEDS ORDERED: POTA20TA4 PO (09:47)
[2018-10-30] MEDS ORDERED: POTASSIUM CHLORIDE 20 MEQ TABLET.ER. PO ONE (10:30)
--- NOTE | 2018-10-30 10:31 | PDOC ---
PROGRESS NOTES Assessment Problems Medical Problems: (1) Dizziness Status: Acute (2) Headache Status: Acute Peripheral vertigo and headache, no stroke or TIA, much better History of stroke History of syncope Intracranial atherosclerotic disease Thyroid mass Dr. Foreman has been following for several years patient and daughter say. There is definite mass effect on several cervical structures. Cervical spondylosis without evidence of radiculopathy or myelopathy. Plan Okay for discharge No additional studies needed Outpatient ENT consultation Medical treatment of intracranial atherosclerotic disease, aspirin and statin. Risks of full anticoagulation exceed benefits given the gait disorder I discussed with the patient and her family. Subjective Feels much better, wants to go home Objective Vital Signs Date Time Temp Pulse Resp B/P (MAP) Pulse Ox O2 Delivery O2 Flow Rate FiO2 10/30/18 08:27 116/55 10/30/18 07:00 98.5 66 19 96 98.5 10/29/18 23:03 Nasal Cannula 10/29/18 19:20 2.0 Intake and Output 10/30/18 07:00 Intake Total 1160 ml Balance 1160 ml Intake Oral 1160 ml # Voids 2 PHYSICAL EXAM Alert. Oriented to time, place and person. PERRL. EOMI. CN: no focal findings. Muscle tone: normal. Muscle strength: 5/5 DTR: 2+ Plantar reflex: flexor Gait: a little unsteady, better than yesterday Sensory exam: no abnormal findings. No cerebellar signs elicited. Review of Relevant I have reviewed the following items holly (where applicable) has been applied. Labs Laboratory Tests Test 10/28/18 15:30 10/29/18 08:45 10/29/18 16:15 10/30/18 04:00 White Blood Count 6.3 x10^3/uL (4.0-11.0) 4.9 x10^3/uL (4.0-11.0) Red Blood Count 4.44 x10^6/uL (3.50-5.40) 4.38 x10^6/uL (3.50-5.40) Hemoglobin 11.5 g/dL (12.0-15.5) 11.3 g/dL (12.0-15.5) Hematocrit 36.0 % (36.0-47.0) 35.3 % (36.0-47.0) Mean Corpuscular Volume 81 fL (79-100) 81 fL (79-100) Mean Corpuscular Hemoglobin 26 pg (25-35) 26 pg (25-35) Mean Corpuscular Hemoglobin Concent 32 g/dL (31-37) 32 g/dL (31-37) Red Cell Distribution Width 14.6 % (11.5-14.5) 14.6 % (11.5-14.5) Platelet Count 148 x10^3/uL (140-400) 135 x10^3/uL (140-400) Neutrophils (%) (Auto) 66 % (31-73) 54 % (31-73) Lymphocytes (%) (Auto) 19 % (24-48) 27 % (24-48) Monocytes (%) (Auto) 10 % (0-9) 11 % (0-9) Eosinophils (%) (Auto) 5 % (0-3) 8 % (0-3) Basophils (%) (Auto) 0 % (0-3) 1 % (0-3) Neutrophils # (Auto) 4.2 x10^3uL (1.8-7.7) 2.6 x10^3uL (1.8-7.7) Lymphocytes # (Auto) 1.2 x10^3/uL (1.0-4.8) 1.4 x10^3/uL (1.0-4.8) Monocytes # (Auto) 0.6 x10^3/uL (0.0-1.1) 0.5 x10^3/uL (0.0-1.1) Eosinophils # (Auto) 0.3 x10^3/uL (0.0-0.7) 0.4 x10^3/uL (0.0-0.7) Basophils # (Auto) 0.0 x10^3/uL (0.0-0.2) 0.0 x10^3/uL (0.0-0.2) Erythrocyte Sedimentation Rate 32 (0-25) Sodium Level 142 mmol/L (136-145) 142 mmol/L (136-145) 144 mmol/L (136-145) Potassium Level 3.3 mmol/L (3.5-5.1) 3.4 mmol/L (3.5-5.1) 3.3 mmol/L (3.5-5.1) Chloride Level 103 mmol/L (98-107) 104 mmol/L (98-107) 106 mmol/L (98-107) Carbon Dioxide Level 30 mmol/L (21-32) 30 mmol/L (21-32) 31 mmol/L (21-32) Anion Gap 9 (6-14) 8 (6-14) 7 (6-14) Blood Urea Nitrogen 17 mg/dL (7-20) 17 mg/dL (7-20) 21 mg/dL (7-20) Creatinine 2.0 mg/dL (0.6-1.0) 1.8 mg/dL (0.6-1.0) 2.0 mg/dL (0.6-1.0) Estimated GFR (Cockcroft-Gault) 29.2 32.9 29.2 BUN/Creatinine Ratio 9 (6-20) 11 (6-20) Glucose Level 100 mg/dL (70-99) 145 mg/dL (70-99) 107 mg/dL (70-99) Calcium Level 10.1 mg/dL (8.5-10.1) 9.9 mg/dL (8.5-10.1) 9.8 mg/dL (8.5-10.1) Total Bilirubin 0.6 mg/dL (0.2-1.0) 0.5 mg/dL (0.2-1.0) Aspartate Amino Transf (AST/SGOT) 22 U/L (15-37) 18 U/L (15-37) Alanine Aminotransferase (ALT/SGPT) 22 U/L (14-59) 18 U/L (14-59) Alkaline Phosphatase 98 U/L (46-116) 82 U/L (46-116) Troponin I Quantitative 0.034 ng/mL (0.000-0.055) C-Reactive Protein, Quantitative 1.6 mg/L (0-3.3) Total Protein 7.2 g/dL (6.4-8.2) 6.9 g/dL (6.4-8.2) Albumin 3.8 g/dL (3.4-5.0) 3.3 g/dL (3.4-5.0) Albumin/Globulin Ratio 1.1 (1.0-1.7) 0.9 (1.0-1.7) Urine Collection Type Unknown Urine Color Yellow Urine Clarity Clear Urine pH 5.5 Urine Specific [place] 1.015 Urine Protein Negative mg/dL (NEG-TRACE) Urine Glucose (UA) Negative mg/dL (NEG) Urine Ketones (Stick) Negative mg/dL (NEG) Urine Blood Negative (NEG) Urine Nitrite Negative (NEG) Urine Bilirubin Negative (NEG) Urine Urobilinogen Dipstick 0.2 mg/dL (0.2 mg/dL) Urine Leukocyte Esterase Negative (NEG) Urine RBC Rare /HPF (0-2) Urine WBC 5-10 /HPF (0-4) Urine Squamous Epithelial Cells Mod /LPF Urine Bacteria Few /HPF (0-FEW) Urine Hyaline Casts Few /HPF Urine Mucus Mod /LPF Triglycerides Level 68 mg/dL (0-150) Cholesterol Level 111 mg/dL (0-200) LDL Cholesterol, Calculated 58 mg/dL (0-100) VLDL Cholesterol, Calculated 14 mg/dL (0-40) Non-HDL Cholesterol Calculated 72 mg/dL (0-129) HDL Cholesterol 39 mg/dL (40-60) Cholesterol/HDL Ratio 2.8 Thyroid Stimulating Hormone (TSH) 0.563 uIU/mL (0.358-3.74) Laboratory Tests Test 10/29/18 16:15 10/30/18 04:00 Urine Collection Type Unknown Urine Color Yellow Urine Clarity Clear Urine pH 5.5 Urine Specific [place] 1.015 Urine Protein Negative mg/dL (NEG-TRACE) Urine Glucose (UA) Negative mg/dL (NEG) Urine Ketones (Stick) Negative mg/dL (NEG) Urine Blood Negative (NEG) Urine Nitrite Negative (NEG) Urine Bilirubin Negative (NEG) Urine Urobilinogen Dipstick 0.2 mg/dL (0.2 mg/dL) Urine Leukocyte Esterase Negative (NEG) Urine RBC Rare /HPF (0-2) Urine WBC 5-10 /HPF (0-4) Urine Squamous Epithelial Cells Mod /LPF Urine Bacteria Few /HPF (0-FEW) Urine Hyaline Casts Few /HPF Urine Mucus Mod /LPF Sodium Level 144 mmol/L (136-145) Potassium Level 3.3 mmol/L (3.5-5.1) Chloride Level 106 mmol/L (98-107) Carbon Dioxide Level 31 mmol/L (21-32) Anion Gap 7 (6-14) Blood Urea Nitrogen 21 mg/dL (7-20) Creatinine 2.0 mg/dL (0.6-1.0) Estimated GFR (Cockcroft-Gault) 29.2 BUN/Creatinine Ratio 11 (6-20) Glucose Level 107 mg/dL (70-99) Calcium Level 9.8 mg/dL (8.5-10.1) Total Bilirubin 0.5 mg/dL (0.2-1.0) Aspartate Amino Transf (AST/SGOT) 18 U/L (15-37) Alanine Aminotransferase (ALT/SGPT) 18 U/L (14-59) Alkaline Phosphatase 82 U/L (46-116) Total Protein 6.9 g/dL (6.4-8.2) Albumin 3.3 g/dL (3.4-5.0) Albumin/Globulin Ratio 0.9 (1.0-1.7) Triglycerides Level 68 mg/dL (0-150) Cholesterol Level 111 mg/dL (0-200) LDL Cholesterol, Calculated 58 mg/dL (0-100) VLDL Cholesterol, Calculated 14 mg/dL (0-40) Non-HDL Cholesterol Calculated 72 mg/dL (0-129) HDL Cholesterol 39 mg/dL (40-60) Cholesterol/HDL Ratio 2.8 Thyroid Stimulating Hormone (TSH) 0.563 uIU/mL (0.358-3.74) Medications Current Medications Fentanyl Citrate (Fentanyl 2ml Vial) 25 mcg PRN Q15MIN PRN IV PAIN GREATER THAN 3/10; Start 10/28/18 at 16:30; Stop 10/29/18 at 16:29; Status DC Acetaminophen (Tylenol) 1,000 mg 1X ONCE PO Last administered on 10/28/18at 16:34; Start 10/28/18 at 16:30; Stop 10/28/18 at 16:31; Status DC Fentanyl Citrate (Fentanyl 2ml Vial) 50 mcg 1X ONCE IV Last administered on 10/28/18at 16:34; Start 10/28/18 at 16:30; Stop 10/28/18 at 16:31; Status DC Morphine Sulfate (Morphine Sulfate) 2 mg PRN Q2HR PRN IV PAIN; Start 10/28/18 at 18:30; Stop 10/29/18 at 18:29; Status DC Ondansetron HCl (Zofran) 4 mg PRN Q6HRS PRN IV NAUSEA/VOMITING Last administered on 10/29/18 08:33; Start 10/29/18 at 08:15 Aspirin (Children'S Aspirin) 81 mg DAILY PO Last administered on 10/30/18 08:21; Start 10/29/18 at 09:00 Carvedilol (Coreg) 12.5 mg BIDWMEALS PO Last administered on 10/30/18 08:27; Start 10/29/18 at 09:00 Docusate Sodium (Colace) 100 mg DAILY PO Last administered on 10/30/18 08:22; Start 10/29/18 at 09:00 EZETIMIBE (Zetia) 10 mg DAILY08 PO Last administered on 10/30/18 08:22; Start 10/29/18 at 09:00 Furosemide (Lasix) 60 mg BID92 PO Last administered on 10/30/18 08:20; Start 10/29/18 at 09:00 Losartan Potassium (Cozaar) 50 mg DAILY08 PO Last administered on 10/30/18 08:22; Start 10/29/18 at 09:00 Ondansetron HCl (Zofran Odt) 4 mg Q8HRS PO ; Start 10/29/18 at 14:00; Status UNV Famotidine (Pepcid) 20 mg QHS PO Last administered on 10/29/18 20:34; Start 10/29/18 at 21:00 Duloxetine HCl (Cymbalta) 60 mg DAILY PO Last administered on 10/30/18 08:21; Start 10/29/18 at 09:00 Oxybutynin Chloride (Ditropan) 5 mg [id number] PO Last administered on 10/30/18 08:22; Start 10/29/18 at 09:00 Isosorbide Mononitrate (Imdur) 120 mg DAILY PO Last administered on 10/30/18 08:21; Start 10/29/18 at 09:00 Non-Formulary Medication (Mirabegron (Myrbetriq)) 25 mg DAILY PO ; Start 10/29/18 at 09:00; Stop 10/30/18 at 10:14; Status DC Ondansetron HCl (Zofran Odt) 8 mg PRN Q8HRS PRN PO NAUSEA/VOMITING; Start 10/29/18 at 08:15 Non-Formulary Medication (Ranitidine Hcl ) 300 mg HS PO ; Start 10/29/18 at 21:00; Status UNV Atorvastatin Calcium (Lipitor) 20 mg QHS PO Last administered on 10/29/18at 20:34; Start 10/29/18 at 21:00 Calcitriol (Rocaltrol) 0.25 mcg BID PO Last administered on 10/30/18at 08:22; Start 10/29/18 at 09:00 Pantoprazole Sodium (Protonix) 40 mg DAILYAC PO Last administered on 10/30/18at 07:30; Start 10/29/18 at 11:30 Potassium Chloride (Klor-Con) 20 meq DAILYWBKFT PO Last administered on 10/30/18at 08:20; Start 10/30/18 at 08:00 Potassium Chloride (Klor-Con) 20 meq 1X ONCE PO Last administered on 10/29/18at 10:35; Start 10/29/18 at 10:15; Stop 10/29/18 at 10:16; Status DC Heparin Sodium (Porcine) (Heparin Sodium) 5,000 unit Q12HR SQ Last administered on 10/30/18at 08:35; Start 10/29/18 at 21:00 Potassium Chloride (Klor-Con) 40 meq 1X ONCE PO Last administered on 10/30/18at 10:22; Start 10/30/18 at 10:30; Stop 10/30/18 at 10:31 Active Scripts Active Zofran Odt (Ondansetron) 4 Mg Tab.rapdis 1 Tab SL Q8HRS Zofran (Ondansetron Hcl) 8 Mg Tablet 8 Mg PO BID PRN Protonix (Pantoprazole Sodium) 40 Mg Tablet.dr 1 Tab PO DAILY Lasix (Furosemide) 40 Mg Tablet 60 Mg PO BID Reported Toviaz (Fesoterodine Fumarate) 8 Mg Tab.er.24h 1 Tab PO DAILY Myrbetriq (Mirabegron) 25 Mg Tab.er.24h 25 Mg PO DAILY Cimetidine (Cimetidine Hcl) 300 Mg/5 Ml Solution 300 Mg PO HS Carvedilol (Carvedilol) 12.5 Mg Tablet 1 Tab PO BID Aspirin 81 Mg Tab.chew 1 Tab PO DAILY Ranitidine Hcl 300 Mg Capsule 300 Mg PO HS Stool Softener (Docusate Sodium) 100 Mg Capsule 100 Mg PO DAILY Zetia (Ezetimibe) 10 Mg Tablet 10 Mg PO DAILY08 Crestor (Rosuvastatin Calcium) 5 Mg Tablet 5 Mg PO HS Losartan Potassium 50 Mg Tablet 50 Mg PO DAILY08 Isosorbide Mononitrate Er (Isosorbide Mononitrate) 120 Mg Tab.er.24h 120 Mg PO DAILY08 [Calcitrol] 0.25 BID Cymbalta (Duloxetine Hcl) 60 Mg Capsule.dr 60 Mg PO DAILY Vitals/I & O Vital Sign - Last 24 Hours 10/29/18 10/29/18 10/29/18 10/29/18 11:00 15:00 16:13 19:20 Temp 98.1 98.2 98.3 98.1 98.2 98.3 Pulse 66 64 66 63 Resp 16 16 20 B/P (MAP) 115/50 (71) 105/58 (74) 115/50 131/58 (82) Pulse Ox 99 99 O2 Delivery Room Air Nasal Cannula O2 Flow Rate 85.0 2.0 10/29/18 10/29/18 10/30/18 10/30/18 19:45 23:03 03:48 07:00 Temp 98.5 97.7 98.5 98.5 97.7 98.5 Pulse 64 66 66 Resp 20 20 19 B/P (MAP) 105/60 (75) 116/66 (83) 116/55 (75) Pulse Ox 94 96 96 O2 Delivery Room Air Nasal Cannula 10/30/18 10/30/18 10/30/18 08:21 08:22 08:27 B/P (MAP) 116/55 116/55 116/55 Intake and Output 10/29/18 10/29/18 10/30/18 15:00 23:00 07:00 Intake Total 860 ml 150 ml 150 ml Balance 860 ml 150 ml 150 ml Images MRI Brain without contrast Ventricular size is proportionate to the sulcal spaces, mild generalized supratentorial involutional change. There is no evidence of a recent infarct or intracranial mass effect. There is no midline shift or extra-axial fluid collection. There is again multifocal moderate T2 and FLAIR hyperintense signal abnormality of the supratentorial parenchyma bilaterally greatest of the frontal parietal white matter, also some involvement of bilateral basal ganglia. There is also some involvement of the bilateral vel. Extent of signal abnormality is similar. There are again old lacunar infarcts such as of the more central vel, left thalamus, bilateral basal ganglia, bilateral centrum semiovale. There is a tiny focus of hemosiderin deposition of the left periatrial white matter, new since previous exam. There is again heterogeneous signal of the posterior central and right nasopharynx with mixed signal characteristics, overall size about 2 cm AP by 1.2 cm transverse, fairly similar. There is similar very minimal fluid in the left mastoid air cells. Cerebellar tonsils are normal in location. There is multilevel cervical degenerative disc disease and spondylosis, multilevel cervical spinal stenosis poorly characterized on this exam although likely more significant at C4-C5 and to lesser degree C3-4. There is no new significant abnormality of the pineal gland or pituitary gland. There is some signal change associated with the small caliber left intradural vertebral artery likely component of plaque or thromboembolism. Impression: 1. There is no evidence of recent infarct or intracranial mass effect. 2. As seen on 2017 exam, there is multifocal moderate T2 and FLAIR hyperintense signal abnormality of the supratentorial parenchyma and to lesser degree of the vel probably due to chronic microvascular ischemic disease, also old lacunar infarcts as stated. 3. 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 4. There is cervical degenerative disc disease, spondylosis, and spinal stenosis. Neck MRA without contrast History: Dizziness and headache Technique: NoncontrastMR angiography was performed of the neck. Comparison: None Findings: Determination of any degree of stenosis is based on NASCET criteria. Not fully evaluated, there is very large mass in the left neck extends to region of thyroid gland about 5 cm transverse by 2.6 cm AP by about 7.6 cm CC. There is also mass in the region of isthmus of thyroid gland about 3.5 cm transverse. There is antegrade flow of the bilateral vertebral arteries, dominant right vertebral artery and very hypoplastic left vertebral artery. Left neck mass results in degree of displacement of the left internal jugular vein and carotid artery. There is no significant stenosis of the visualized cervical internal carotid arteries or common carotid arteries. Proximal great vessels are not fully evaluated due to evaluate for stenosis. Patency of brachiocephalic artery can not be determined on this exam. Segmental nonvisualization of the distal vertebral arteries is probably due to plane of blood flow on this noncontrast exam. Impression: 1. 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 There is also a large mass in the region of isthmus of thyroid gland. 2. No significant stenosis is identified of the cervical internal carotid arteries or visualized common carotid arteries although proximal great vessels are not fully included for evaluation. Patency of the brachycephalic artery cannot be determined on this exam. Right vertebral artery is dominant, very hypoplastic left vertebral artery. Correlating with MRI brain performed at the same time, there is some signal change in the left intradural vertebral artery, may be a component of thromboembolism or plaque, otherwise difficult to characterize given the small caliber of the left intradural vertebral artery. Electronically signed by: Naveen Herman MD (10/29/2018 3:15 PM) [id number] DICTATED AND SIGNED BY: NAVEEN HERMAN MD DATE: 10/29/18 [id number] CC: ROSA CHO MD; JOSE A FOREMAN; GOLDIE ROTH MD; CLEMENTINE GARCIA MD; SANDI VICENTE Jr, MD ~ MRA Brain History: Dizziness, headaches Technique: 3-D [id number] MR angiography was performed of the brain. Comparison: None Findings: Determination of any degree of stenosis is based on NASCET criteria. There is motion degradation. Basilar artery is primarily supplied by the right vertebral artery, very hypoplastic left intradural vertebral artery. There is some undulating irregularity of the tracey of the intradural vertebral arteries bilaterally. There is visualization of segments of bilateral PICAs. There is probable tiny right posterior communicating artery, not well-visualized on the left. AICAs are not well visualized. There is segmental visualization of the bilateral superior cerebellar arteries. There is suspected [id number] narrowing near the origin of the right P1 segment. There is visualization of the internal carotid arteries bilaterally at the skull base. No significant anterior communicating artery is visualized on this exam. No significant intracranial aneurysm is identified. There are more significant stenoses origins right M2 segments. There is also likely moderate narrowing near origin of left M2 segment. Impression: 1. Exam is degraded by motion. There is undulating wall irregularity of the intradural vertebral arteries bilaterally and more significant stenoses near origins right M2 segments, evidence of intracranial atherosclerotic disease. Left intradural vertebral artery is hypoplastic comparing with the right, basilar artery primarily supplied by the right. There is likely [id number] narrowing near the origin of the right P1 segment. ROSA CHO MD October 30, 2018 10:31
--- NOTE | 2018-10-30 10:41 | NUR ---
Patient discharged from the facility at 1045. Patient was escorted from the unit in a wheelchair accompanied by daughter and LOGGING SUPERVISOR. Patient was discharged with her belongings and discharge information. Prior to discharge the information was discussed with the patient and she had no questions or concerns.
--- NOTE | 2018-11-05 13:38 | PDOC ---
Provider Note Provider Note Discharge summary dictated. #[id number]. CLEMENTINE GARCIA MD November 05, 2018 13:38
--- NOTE | 2018-11-05 16:54 | DS ---
DATE OF DISCHARGE: 10/30/2018 REASON FOR ADMISSION TO THE HOSPITAL: Severe headache. The patient has history of previous stroke. CONSULTATIONS: Dr. Springer. PROCEDURES DONE: MRI of the brain, MRA, CT head, ultrasound of the kidneys, pelvic ultrasound. HOSPITAL COURSE: The patient is a 78-year-old female with history of previous stroke, came in with severe headache. CT was negative. MRI of the brain was negative. MRA was negative. Had some thyroid mass. The patient did not want any investigations done at this time. Surgical followup with Dr. Foreman. She had the thyroid looked by General Surgery. The patient had ultrasound of the kidneys, bilateral renal cysts. CT of the pelvis shows some mild fluid in the endometrium. On the whole, the patient's condition improved, and she is feeling better. She was discharged. Her creatinine was 2, which is baseline. Urine negative for infection. FINAL DIAGNOSES: 1. Severe headache, improved. 2. History of previous stroke. No new strokes. 3. Chronic kidney disease stage 3. 4. Hypertension. 5. Thyroid mass. 6. Mild endometrial fluid. RECOMMENDATIONS: To have General Surgery see the patient for thyroid mass and also a HUMAN RESOURCES SAFETY MANAGER as outpatient. HUMAN RESOURCES SAFETY MANAGER was consulted in the hospital, but she did not wait until for him to see. CLEMENTINE GARCIA MD DR: BETO/norma JOB#: [id number] / [id number] ruddy FOREMAN DR
== END 2018-10-30 10:45 | disposition home or self-care (01) | DRG 149 ==
LOC: ER 15:11 → EDBD 18:22 → 2 NORTH 18:22 → 6 SOUTH 10-29 15:05
PROVIDERS: ADMIT Internal Medicine; ATTEND Internal Medicine
DX: H81.399 Other peripheral vertigo, unspecified ear (principal); I69.351 Hemiplegia and hemiparesis following cerebral infarction affecting right dominant side; M47.812 Spondylosis without myelopathy or radiculopathy, cervical region; E07.9 Disorder of thyroid, unspecified; I67.2 Cerebral atherosclerosis; R51 Headache; I12.9 Hypertensive chronic kidney disease with stage 1 through stage 4 chronic kidney disease, or unspecified chronic kidney disease; N18.3 Chronic kidney disease, stage 3 (moderate); E03.9 Hypothyroidism, unspecified; E11.22 Type 2 diabetes mellitus with diabetic chronic kidney disease; E78.00 Pure hypercholesterolemia, unspecified; E78.5 Hyperlipidemia, unspecified; G47.30 Sleep apnea, unspecified; I25.10 Atherosclerotic heart disease of native coronary artery without angina pectoris; J44.9 Chronic obstructive pulmonary disease, unspecified; K21.9 Gastro-esophageal reflux disease without esophagitis; M50.30 Other cervical disc degeneration, unspecified cervical region; Z82.49 Family history of ischemic heart disease and other diseases of the circulatory system; Z96.653 Presence of artificial knee joint, bilateral; Z95.1 Presence of aortocoronary bypass graft; M10.9 Gout, unspecified; M19.90 Unspecified osteoarthritis, unspecified site; Z98.51 Tubal ligation status
CPT/HCPCS: 36415; 70450; 70544; 70547; 70551; 76770; 76830; 76856; 80048; 80053; 80061; 81001; 84443; 84484; 85025; 85651; 86140; 87086; 93005; 96374; J1644; J2405; J3010; 99285-25

== ENCOUNTER → 2018-11-11 | Outpatient (CLI) | payer OTHER ==
[2018-10-30 08:27] VITALS: BP 116/55
[~2018-11-11] MED LIST changes: +CIME300S4 PO; +FESO8TAB PO; +MIRA25TA PO; +POTA20TA4 PO
--- NOTE | 2018-11-11 13:19 | RAD ---
Thyroid ultrasound, 11/11/2018: History: Thyroid nodules The right lobe of the gland measures 4.6 x 1.4 x 1.3 cm while the left lobe of the gland measures 7.5 x 5.5 x 3.8 cm. There is a large, heterogeneous, predominantly solid nodule in the left lobe of the gland replacing the majority of the normal thyroid tissue. This mass measures 6.7 x 4.8 x 3.6 cm. There is an adjacent nodule centered in the left side of the isthmus with similar sonographic characteristics. This nodule measures 5.0 x 3.5 x 2.4 cm. No internal calcifications are identified in these nodules. There is a tiny 3 mm nodule present anteriorly in the right lobe of the gland. It demonstrates an echogenic rim suggesting that it is partially calcified. The right lobe is otherwise unremarkable. IMPRESSION: Large solid nodules in the left lobe of the gland and adjacent isthmus. The sonographic characteristics are nonspecific. If clinically indicated, ultrasound-guided biopsy may be considered for further evaluation.
== END | disposition home or self-care (01) ==
LOC: US 09:47
PROVIDERS: ATTEND Family Medicine
DX: E04.2 Nontoxic multinodular goiter (principal)
CPT/HCPCS: 76536

== ENCOUNTER → 2018-12-23 | Outpatient (CLI) | payer OTHER ==
[~2018-12-23] MED LIST changes: -PANT40TA3 PO; +PANT40TA77 PO
--- NOTE | 2018-12-24 09:46 | RAD ---
Ultrasound-guided left thyroid biopsy #1, 12/23/2018: HISTORY: Thyroid masses Previous imaging demonstrated a large solid masses in the left thyroid lobe as well as a similar mass in the isthmus. We first targeted the mass in the left lobe of the gland. Under local anesthesia, aseptic conditions and sonographic guidance four 25-gauge aspirates were obtained via a left lateral approach. The materials were sent to pathology for evaluation. Ultrasound-guided left thyroid biopsy #2, 12/23/2018: We then targeted the solid mass in the isthmus. Under local anesthesia, aseptic conditions and sonographic guidance 4 separate 25-gauge aspirates were obtained from this mass via a left lateral approach. These materials were also sent to pathology for evaluation. Hemostasis was then obtained. The patient tolerated the procedure well and left the department in good condition. The pathology results are pending.
--- NOTE | 2018-12-25 15:06 | PATHOLOGY ---
Note [facility] Accession Number: [id number] TESTS RESULT FLAG UNITS REF RANGE LAB Clinician Provided Cytology Information No. of containers..01 Other (Miscellaneous) Source: LT ISTHMUS DIAGNOSIS: LT ISTHMUS NEGATIVE FOR MALIGNANT CELLS. BETHESDA CATEGORY II. SPECIMEN CONSISTS OF BENIGN FOLLICULAR CELLS, HEMOSIDERIN-LADEN MACROPHAGES, COLLOID, AND BLOOD. THIS PATTERN IS CONSISTENT WITH A BENIGN FOLLICULAR NODULE. THIS INTERPRETATION INCLUDES EVALUATION OF A CELL BLOCK. Pathologist ICD10: 02 E04.1 Signed out by: Dewayne Melendez MD, Pathologist NPI- [id number] Performed by: Asa Chacko, Quill Layer ([facility]) Gross description: 01 30ML, DARK PINK, CLOUDY /LCS FLAG LEGEND: L-Low Normal,H-High Normal,LL-Alert Low,HH-Alert High <-Panic Low,>-Panic High,A-Abnormal,AA-Critical Abnormal Performed at: [address] [place] [address] Sean Dave MD, [facility] [address] [place] [address] Dewayne Melendez MD, Performed at: [address], [place], [place] [id number] MD Sean Dave MD Phone: [phone]
--- NOTE | 2018-12-25 15:06 | PATHOLOGY ---
Note [facility] Accession Number: [id number] TESTS RESULT FLAG UNITS REF RANGE LAB Clinician Provided Cytology Information No. of containers..01 Other (Miscellaneous) Source: LT THYROID DIAGNOSIS: LT THYROID INADEQUATE, INSUFFICIENT CELLS FOR STUDY. BETHESDA CATEGORY I. NONDIAGNOSTIC: CYST FLUID ONLY. THIS INTERPRETATION INCLUDES EVALUATION OF A CELL BLOCK. Signed out by: Dewayne Melendez MD, Pathologist NPI- [id number] Performed by: Asa Chacko, Loom Fixer Apprentice ([facility]) Gross description: 01 30ML, PINK, CLOUDY /LCS FLAG LEGEND: L-Low Normal,H-High Normal,LL-Alert Low,HH-Alert High <-Panic Low,>-Panic High,A-Abnormal,AA-Critical Abnormal Performed at: [facility] [address] [place] [address] Sean Dave MD, [address] [facility] [address] [place] [address] Dewayne Melendez MD, Specimen Comment: A courtesy copy of this report has been sent to Specimen Comment: [phone], , . Specimen Comment: Report sent to ,DR WALTER / DR FOREMAN Specimen Comment: A duplicate report has been generated due to demographic updates. Performed at: 01 [facility] [place] [address], [place], [place] [id number] MD Sean Dave MD Phone: [phone]
== END ==
LOC: US 13:14
PROVIDERS: ATTEND Specialist
DX: E04.1 Nontoxic single thyroid nodule (principal)
CPT/HCPCS: 10005; 10006; 60300; 76942; 88173; 88305

== ENCOUNTER → 2020-02-18 | Outpatient (CLI) | payer OTHER, MEDICAID ==
[~2020-02-18] MED LIST changes: -ASPI-612 PO; +ASPI-886 PO; +CONTRAST GIVEN. MC PRN; -EZET10TA18 PO; +EZET10TA20 PO; +IOHEXOL 240 MG/ML 50ML VIAL. PO ONE
--- NOTE | 2020-02-19 11:21 | RAD ---
EXAM: CT ABDOMEN/PELVIS WITHOUT CONTRAST. HISTORY: Lower abdominal pain. TECHNIQUE: Computed tomography of the abdomen and pelvis was performed without intravenous contrast. One or more of the following individualized dose reduction techniques were utilized for this examination: 1. Automated exposure control. 2. Adjustment of the mA and/or kV according to patient size. 3. Use of iterative reconstruction technique. COMPARISON: 05/18/2017. FINDINGS: Lung windows through the visualized portions of the bases reveal bronchial wall thickening and mild bronchiectasis in the bases. Scattered nodular foci and septal line thickening are postinflammatory. There is a moderate hiatal hernia. Coronary artery bypass grafting changes are noted. Bone windows reveal no suspicious lesions. Central canal stenosis is severe from L3 through L4. There is grade 1 anterolisthesis at L3-4. A cyst posteriorly in the left renal interpolar region measures 2.0 cm. There is a 2 mm calculus in the right interpolar region. There is scattered mild renal cortical scarring. The liver, gallbladder, pancreas and adrenal glands are unremarkable without contrast. There is no small bowel obstruction. The appendix is not inflamed. There are no pathologically enlarged lymph nodes. IMPRESSION: 1. No cause for acute pain is identified. 2. Moderate hiatal hernia. 3. 2 mm right renal calculus. 4. Bronchiectasis and bronchial wall thickening in the bases. Correlate for chronic aspiration or other causes of inflammation. Electronically signed by: Tae Cr MD (02/19/2020 11:18 AM) [id number]
== END | disposition home or self-care (01) ==
LOC: CT 10:16
PROVIDERS: ATTEND Internal Medicine
DX: K44.9 Diaphragmatic hernia without obstruction or gangrene (principal); N28.1 Cyst of kidney, acquired; N18.9 Chronic kidney disease, unspecified; J47.9 Bronchiectasis, uncomplicated; M48.061 Spinal stenosis, lumbar region without neurogenic claudication; M43.16 Spondylolisthesis, lumbar region; Z95.5 Presence of coronary angioplasty implant and graft
CPT/HCPCS: 74176; Q9966

== ENCOUNTER 2020-10-31 09:24 | Emergency (ER) | payer OTHER, MEDICAID ==
[~2020-10-31] VITALS: Ht 172.7 cm; Wt 82.7 kg
[~2020-10-31 09:24] MED LIST changes: -CONTRAST GIVEN. MC PRN; -IOHEXOL 240 MG/ML 50ML VIAL. PO ONE
--- NOTE | 2020-10-31 10:07 | RAD ---
Renal sonography Clinical indications: Acute kidney injury. FINDINGS: The longitudinal and AP and transverse dimensions of the right kidney are 9.8 cm and 4.4 cm and 4.6 cm respectively. The longitudinal and AP and transverse dimensions of the left kidney are 9. 7 cm and 4.1 cm and 3.6 cm respectively. Increased echogenicity of both kidneys is seen. The lower po le of the right kidney is poorly visualized due to overlying bowel gas. There is a small cyst of the superior aspect of the right kidney measuring 11 mm. There is a more prominent cyst of the superior p ole of the left kidney measuring 20 mm. These are incidental findings and no further follow-up is nee ded. No hydronephrosis is seen on either side. The urinary bladder is not abnormally distended. IMPRESSION: No hydronephrosis. Increased echogenicity of both kidneys which may be seen with older age or medical renal disease. Electronically signed by: Prakash Hernandez MD (10/31/2020 10:04 AM) [id number]
[2020-10-31 10:08] LABS: BASO % 0 % (0-3); EOS # 0.3 x10^3/uL (0.0-0.7); EOS % 6 % (0-3); HEMATOCRIT 33.8 % (36.0-47.0); HEMOGLOBIN 11.1 g/dL (12.0-15.5); LYMPH # 1.1 x10^3/uL (1.0-4.8); LYMPH % 22 % (24-48); MEAN CORPUSCULAR HEMOGLOBIN 27 pg (25-35); MEAN CORPUSCULAR HGB CONC 33 g/dL (31-37); MEAN CORPUSCULAR VOLUME 82 fL (79-100); MONO # 0.6 x10^3/uL (0.0-1.1); MONO % 11 % (0-9); NEUT % 61 % (31-73); PLATELET COUNT 128 x10^3/uL (140-400); RED BLOOD COUNT 4.12 x10^6/uL (3.50-5.40)
--- NOTE | 2020-10-31 10:30 | ED.ADGEN ---
Past Medical History Past Medical History: CVA, Diabetes-Type II, High Cholesterol, Heart Disease, Hypertension, Other Additional Past Medical Histor: Espohgeal reflux. Past Surgical History: Angioplasty, Coronary Bypass Surgery Additional Past Surgical Histo: bilat knee replacement, R) FA nerve graft,CABG x5 Smoking Status: Never Smoker Alcohol Use: None Drug Use: None General Adult EDM: Chief Complaint: FLANK PAIN HPI: HPI: Patient is an 80-year-old female who presents to the emergency room from nephrology for concern of possible acute kidney failure. Patient started having bilateral flank pain across her back about a month ago. She has been having lower abdominal pain, intermittent hematuria, intermittent nausea and vomiting, lethargy, decreased urination, inability to fully empty her bladder. She states this all started suddenly within the last month. She has chronic chest pain and shortness of breath from congestive heart failure. She states these are unchanged from prior. She states that the flank pain is achy in nature and con stant. She rates it a 6 out of 10. She does not try to take anything for it at home. She went in and saw nephrology today who sent her here to be evaluated for possible acute kidney failure. Review of Systems: Review of Systems: Complete ROS is negative unless otherwise documented in HPI Allergies: Allergies: Allergies Coded Allergies Type Severity Reaction Last Updated Verified lisinopril Allergy Intermediate COUGH 03/12/14 Yes Physical Exam: PE: General: Awake, alert, NAD. Well Nourished, well hydrated. Cooperative HEENT: Atraumatic, EOMI, PERRL, airway patent, moist oral mucosa Neck: Supple, trachea midline Respiratory: CTA bilaterally, normal effort, no wheezing/crackles CV: RRR, no murmur, cap refill <2 GI: Soft, nondistended, lower abdominal tenderness, no masses MSK: No obvious deformities Skin: Warm, dry, intact Neuro: A&O x3, speech NL, sensory and motor grossly intact, no focal deficits Psych: Normal affect, normal mood, not suicidal or homicidal Current Patient Data: Labs: Laboratory Tests Test 10/31/20 10:00 10/31/20 11:52 White Blood Count 5.0 x10^3/uL (4.0-11.0) Red Blood Count 4.12 x10^6/uL (3.50-5.40) Hemoglobin 11.1 g/dL (12.0-15.5) L Hematocrit 33.8 % (36.0-47.0) L Mean Corpuscular Volume 82 fL (79-100) Mean Corpuscular Hemoglobin 27 pg (25-35) Mean Corpuscular Hemoglobin Concent 33 g/dL (31-37) Red Cell Distribution Width 15.0 % (11.5-14.5) H Platelet Count 128 x10^3/uL (140-400) L Neutrophils (%) (Auto) 61 % (31-73) Lymphocytes (%) (Auto) 22 % (24-48) L Monocytes (%) (Auto) 11 % (0-9) H Eosinophils (%) (Auto) 6 % (0-3) H Basophils (%) (Auto) 0 % (0-3) Neutrophils # (Auto) 3.0 x10^3/uL (1.8-7.7) Lymphocytes # (Auto) 1.1 x10^3/uL (1.0-4.8) Monocytes # (Auto) 0.6 x10^3/uL (0.0-1.1) Eosinophils # (Auto) 0.3 x10^3/uL (0.0-0.7) Basophils # (Auto) 0.0 x10^3/uL (0.0-0.2) Sodium Level 144 mmol/L (136-145) Potassium Level 4.8 mmol/L (3.5-5.1) Chloride Level 106 mmol/L (98-107) Carbon Dioxide Level 32 mmol/L (21-32) Anion Gap 6 (6-14) Blood Urea Nitrogen 40 mg/dL (7-20) H Creatinine 4.1 mg/dL (0.6-1.0) H Estimated GFR (Cockcroft-Gault) 12.7 BUN/Creatinine Ratio 10 (6-20) Glucose Level 106 mg/dL (70-99) H Calcium Level 9.9 mg/dL (8.5-10.1) Total Bilirubin 0.5 mg/dL (0.2-1.0) Aspartate Amino Transferase (AST) 16 U/L (15-37) Alanine Aminotransferase (ALT) 15 U/L (14-59) Alkaline Phosphatase 88 U/L (46-116) Total Protein 7.3 g/dL (6.4-8.2) Albumin 3.8 g/dL (3.4-5.0) Albumin/Globulin Ratio 1.1 (1.0-1.7) Urine Collection Type Void Urine Color Yellow Urine Clarity Clear Urine pH 5.0 (<5.0-8.0) Urine Specific [place] 1.010 (1.000-1.030) Urine Protein Negative mg/dL (NEG-TRACE) Urine Glucose (UA) Negative mg/dL (NEG) Urine Ketones (Stick) Negative mg/dL (NEG) Urine Blood Negative (NEG) Urine Nitrite Negative (NEG) Urine Bilirubin Negative (NEG) Urine Urobilinogen Dipstick 0.2 mg/dL (0.2 mg/dL) Urine Leukocyte Esterase Negative (NEG) Urine RBC Occ /HPF (0-2) Urine WBC 1-4 /HPF (0-4) Urine Squamous Epithelial Cells Many /LPF Urine Bacteria Few /HPF (0-FEW) Urine Mucus Slight /LPF Laboratory Tests 10/31/20 10:00 Laboratory Tests 10/31/20 10:00 Vital Signs: Vital Signs Date Time Temp Pulse Resp B/P (MAP) Pulse Ox O2 Delivery O2 Flow Rate FiO2 10/31/20 12:14 66 136/70 (92) 95 Room Air 10/31/20 09:35 97.7 20 97.7 EKG: EKG: [] Heart Score: C/O Chest Pain: N/A Risk Factors: Risk Factors: DM, Current or recent (<one month) smoker, HTN, HLP, family history of CAD, obesity. Risk Scores: Score 0 - 3: 2.5% MACE over next 6 weeks - Discharge Home Score 4 - 6: 20.3% MACE over next 6 weeks - Admit for Clinical Observation Score 7 - 10: 72.7% MACE over next 6 weeks - Early Invasive Strategies Radiology/Procedures: Radiology/Procedures: [] Course & Med Decision Making: Course & Med Decision Making Pertinent Labs and Imaging studies reviewed. (See chart for details) Patient is an 80-year-old female presents to the emergency room with multiple complaints including lightheadedness, flank pain, decreased urination, nausea, vomiting. She was seen in nephrology clinic this morning and they are concerned about possible acute on chronic kidney failure. They requested basic labs and an ultrasound of her kidneys. CBC, CMP, UA, renal ultrasound were ordered. Lab work is significant for creatinine of 4.0. Lab work otherwise normal. 1222: Consulted Dr. Sandy who states that patient can follow-up outpatient and does not need admission. Patient will follow up outpatient with nephrology. Patient's test results and vitals while in the ED were fully reviewed and discussed with the patient. Patient is stable and at this time does not need admission to the hospital. We have discussed strict return precautions and the importance of following up with their Primary Care Physician. Patient stated understanding and was given an opportunity to ask any questions. Patient is in agreement with plan. Dragon Disclaimer: Dragon Disclaimer: This electronic medical record was generated, in whole or in part, using a voice recognition dictation system. Departure Departure Impression: Primary Impression: Acute on chronic kidney failure Disposition: HOME / SELF CARE / HOMELESS Referrals: CLEMENTINE GARCIA MD (PCP) Patient Instructions: Kidney Failure MASTER ANTONIO MD October 31, 2020 10:30
[2020-10-31 10:33] LABS: CALCIUM 9.9 mg/dL (8.5-10.1); CREATININE 4.1 mg/dL (0.6-1.0); GFR 12.7; POTASSIUM 4.8 mmol/L (3.5-5.1)
[2020-10-31 10:34] LABS: ALBUMIN 3.8 g/dL (3.4-5.0); ALBUMIN/GLOBULIN RATIO 1.1 (1.0-1.7); TOTAL BILIRUBIN 0.5 mg/dL (0.2-1.0); TOTAL PROTEIN 7.3 g/dL (6.4-8.2)
[2020-10-31 12:01] LABS: BILIRUBIN,URINE NEGATIVE (NEG); CLARITY,URINE CLEAR; COLOR,URINE YELLOW; NITRITE,URINE NEGATIVE (NEG); PROTEIN,URINE NEGATIVE (NEG-TRACE); UROBILINOGEN,URINE 0.2 mg/dL (0.2 mg/dL)
[2020-10-31 12:07] LABS: BACTERIA,URINE FEW /HPF (0-FEW); RBC,URINE OCC /HPF (0-2)
[2020-10-31 12:14] VITALS: BP 136/70
== END 2020-10-31 12:51 | disposition home or self-care (01) ==
LOC: ER 09:24
DX: E11.22 Type 2 diabetes mellitus with diabetic chronic kidney disease (principal); I13.10 Hypertensive heart and chronic kidney disease without heart failure, with stage 1 through stage 4 chronic kidney disease, or unspecified chronic kidney disease; N18.9 Chronic kidney disease, unspecified; N17.9 Acute kidney failure, unspecified; E78.00 Pure hypercholesterolemia, unspecified; Z86.73 Personal history of transient ischemic attack (TIA), and cerebral infarction without residual deficits; Z95.1 Presence of aortocoronary bypass graft; Z95.5 Presence of coronary angioplasty implant and graft; Z88.6 Allergy status to analgesic agent
CPT/HCPCS: 36415; 76770; 80053; 81001; 85025; 99284

== ENCOUNTER → 2020-11-07 | Outpatient (CLI) | payer OTHER, MEDICAID ==
[2020-10-31 12:14] VITALS: BP 136/70
--- NOTE | 2020-11-07 10:40 | RAD ---
XR CHEST 1V History: Chronic lung disease. Comparison: Acute abdominal series 05/18/2017 Technique: AP chest radiograph Findings: The lungs are mildly hyperinflated. Diffusely increased interstitial markings with basilar bronchiect asis. No airspace consolidation, pleural effusion or pneumothorax. Postsurgical changes of the medias tinum from CABG. Calcification of the aortic arch. Small to moderate hiatal hernia. Heart size is nor mal. Pulmonary vasculature are within normal limits. Impression: 1. Diffusely increased interstitial markings and basilar bronchiectasis. 2. No focal airspace consolidation. Electronically signed by: Benedicto Meza MD (11/07/2020 10:37 AM) [facility]
== END ==
LOC: RAD 08:17
PROVIDERS: ATTEND Internal Medicine Nephrology
DX: J47.9 Bronchiectasis, uncomplicated (principal); J98.4 Other disorders of lung; N18.5 Chronic kidney disease, stage 5; N25.81 Secondary hyperparathyroidism of renal origin; N18.32 Chronic kidney disease, stage 3b; R11.2 Nausea with vomiting, unspecified; K44.9 Diaphragmatic hernia without obstruction or gangrene
CPT/HCPCS: 36415; 71045; 86704; 86706; 86803; 87340

== ENCOUNTER → 2020-11-07 | Outpatient (CLI) | payer OTHER, MEDICAID ==
[2020-10-31 12:14] VITALS: BP 136/70
[~2020-11-07] MED LIST changes: +IOHEXOL 240 MG/ML 50ML VIAL. PO ONE
--- NOTE | 2020-11-07 12:48 | RAD ---
CT PELVIS WO History: Postmenopausal bleeding Comparison: CT abdomen pelvis 02/18/2020, 05/18/2017. Technique: CT of the pelvis with oral contrast only. Findings: A partially opacified small bowel is unremarkable. Unremarkable visualized colon. Aortoiliac calcification without aneurysm. No pelvic adenopathy. Unchanged appearance of the approximately 1.5 cm diameter left ovary with stable mildly prominent lef t fallopian tube contours. The uterus is unchanged in configuration and size and without focal abnorm ality within limitations of the exam. The bladder is unremarkable. Multilevel degenerative lower lumbar disc and facet disease. Right quadriceps partially visualized 2. 7 x 1.5 cm intramuscular lipoma. Impression: 1. Stable uterus without etiology for postmenopausal bleeding identified. Recommend pelvic ultrasoun d for further evaluation. ------ Exposure: One or more of the following individualized dose reduction techniques were utilized for thi s examination: 1. Automated exposure control 2. Adjustment of the mA and/or kV according to patient size 3. Use of iterative reconstruction technique. Electronically signed by: Benedicto Meza MD (11/07/2020 12:46 PM) [facility]
== END ==
LOC: CT 10:37
PROVIDERS: ATTEND Internal Medicine
DX: N95.0 Postmenopausal bleeding (principal)
CPT/HCPCS: 72192; Q9966

== ENCOUNTER 2020-11-13 18:35 | Emergency (ER) | payer OTHER, MEDICAID ==
[~2020-11-13] VITALS: Ht 160 cm; Wt 80.0 kg
[~2020-11-13 18:35] MED LIST changes: -IOHEXOL 240 MG/ML 50ML VIAL. PO ONE
[2020-11-13 19:12] VITALS: BP 182/86
[2020-11-13] MEDS ORDERED: LIDOCAINE 1%/EPI 1:100,000 20 ML VIAL. INJ ONE (19:45)
--- NOTE | 2020-11-13 20:39 | PHYS DOC ---
Past Medical History Past Medical History: CVA, Diabetes-Type II, High Cholesterol, Heart Disease, Hypertension, Other Additional Past Medical Histor: Espohgeal reflux, dialysis Past Surgical History: Angioplasty, Coronary Bypass Surgery Additional Past Surgical Histo: bilat knee replacement, R) FA nerve graft,CABG x5 Smoking Status: Never Smoker Alcohol Use: None Drug Use: None General Adult EDM: Chief Complaint: DIALYSIS PROBLEM HPI: HPI: Patient is a 80 year old female presents with the chief complaint of bleeding around dialysis cath. Patient recently had chest dialysis cath placed. Today was patients first day of dialysis. Post treatment bleeding started around cath. Review of Systems: Review of Systems: Constitutional: Denies fever or chills. [] Eyes: Denies change in visual acuity. [] HENT: Denies nasal congestion or sore throat. [] Respiratory: Denies cough or shortness of breath. [] Cardiovascular: Denies chest pain or edema. [] GI: Denies abdominal pain, nausea, vomiting, bloody stools or diarrhea. [] : Denies dysuria. [] Musculoskeletal: Denies back pain or joint pain. [] Integument: Denies rash. [] positive bleeding. Neurologic: Denies headache, focal weakness or sensory changes. [] Endocrine: Denies polyuria or polydipsia. [] Lymphatic: Denies swollen glands. [] Psychiatric: Denies depression or anxiety. [] Heart Score: C/O Chest Pain: N/A Risk Factors: Risk Factors: DM, Current or recent (<one month) smoker, HTN, HLP, family history of CAD, obesity. Risk Scores: Score 0 - 3: 2.5% MACE over next 6 weeks - Discharge Home Score 4 - 6: 20.3% MACE over next 6 weeks - Admit for Clinical Observation Score 7 - 10: 72.7% MACE over next 6 weeks - Early Invasive Strategies Current Medications: Current Medications Medications (Trade) Dose Ordered Sig/Wilberto Start Time Stop Time Status Last Admin Dose Admin Lidocaine/ Epinephrine (LIDOCAINE 1%-EPI 1:100,000 Multi-Dose) 20 ml 1X ONCE 11/13/20 19:45 11/13/20 19:46 DC 11/13/20 19:51 20 ML Allergies: Allergies: Allergies Coded Allergies Type Severity Reaction Last Updated Verified lisinopril Allergy Intermediate COUGH 03/12/14 Yes Physical Exam: PE: Constitutional: Well developed, well nourished, no acute distress, non-toxic appearance. [] HENT: Normocephalic, atraumatic, bilateral external ears normal, oropharynx moist, no oral exudates, nose normal. [] Eyes: PERRLA, EOMI, conjunctiva normal, no discharge. [] Neck: Normal range of motion, no tenderness, supple, no stridor. [] Cardiovascular:Heart rate regular rhythm, no murmur [] Lungs & Thorax: Bilateral breath sounds clear to auscultation [] Abdomen: Bowel sounds normal, soft, no tenderness, no masses, no pulsatile masses. [] Skin: Warm, dry, no erythema, no rash. [] Back: No tenderness, no CVA tenderness. [] Extremities: No tenderness, no cyanosis, no clubbing, ROM intact, no edema. [] Neurologic: Alert and oriented X 3, normal motor function, normal sensory function, no focal deficits noted. [] Psychologic: Affect normal, judgement normal, mood normal. [] Current Patient Data: Vital Signs: Vital Signs Date Time Temp Pulse Resp B/P (MAP) Pulse Ox O2 Delivery O2 Flow Rate FiO2 11/13/20 19:12 99.2 89 12 182/86 (118) 100 Room Air 99.2 EKG: EKG: [] Radiology/Procedures: Radiology/Procedures: [] Course & Med Decision Making: Course & Med Decision Making Pertinent Labs and Imaging studies reviewed. (See chart for details) []Procedure- area around dialysis cath cleaned. Lido w/ epi for anesthesia Once anesthesia was achieved 2 simple interrupted sutures placed 3.0 nylon on each side of the cath. bleeding controlled. Site was observed x 45 minutes. Bleeding controlled. Very minimal small oz. Site was dressed with biopatch, 4x4, and tegaderm. Patient was discharge home-- instructed to follow up with who placed cath in the AM. Bobby Disclaimer: Bobby Disclaimer: This electronic medical record was generated, in whole or in part, using a voice recognition dictation system. Departure Departure Impression: Primary Impression: Dialysis catheter clot or failure Additional Impression: Dialysis complication Disposition: HOME / SELF CARE / HOMELESS Condition: STABLE Referrals: CLEMENTINE GARCIA MD (PCP) Patient Instructions: Dialysis (AV) Shunt, Malfunction GARTH CUEVAS DO November 13, 2020 20:39
== END 2020-11-13 21:13 | disposition home or self-care (01) ==
LOC: ER 18:35
DX: T82.49XA Other complication of vascular dialysis catheter, initial encounter (principal); Y82.8 Other medical devices associated with adverse incidents; E11.9 Type 2 diabetes mellitus without complications; E78.00 Pure hypercholesterolemia, unspecified; I11.9 Hypertensive heart disease without heart failure; Z86.73 Personal history of transient ischemic attack (TIA), and cerebral infarction without residual deficits; Z95.1 Presence of aortocoronary bypass graft; Z95.5 Presence of coronary angioplasty implant and graft; Z88.8 Allergy status to other drugs, medicaments and biological substances; Y92.89 Other specified places as the place of occurrence of the external cause
CPT/HCPCS: 96372; 99283; J3490

== ENCOUNTER → 2021-05-31 | Outpatient (CLI) | payer OTHER, MEDICAID ==
[~2021-05-31] MED LIST changes: +ARMO50TA2 PO; +CALC0.25 PO; +CARV25TA2 PO; +COLC0.6T45 PO; -DOCU-150 PO; +DOCU-158 PO; -DULO60CA6 PO; +DULO60CA7 PO; +FAMO20TA5 PO; +FURO40TA4 PO; +MODA100T2 PO; +OLME20TA17 PO; +POTA-112 PO; +POTA-121 PO; -POTA20TA4 PO; +REGADENOSON 0.4 MG/5 ML DISP.SYRIN. IV ONE; +TRAM50TA PO
--- NOTE | 2021-06-03 13:06 | RAD ---
MR#: [id number] Date of Study: 05/31/2021 Ordering Physician: SANDI CASANOVA, Referring Physician: ABHI FREIRE Tech: FILIBERTO Talley, ARRT (R) (N) APPROVED REPORT Test Type: Pharmacological Stress Nurse/Tech: Colt Elkins RN Test Indications: CAD Cardiac History: HTN, CABG x5 in 2009, See EMR. Medications: See EMR. Medical History: ESRD, Hemodialysis MWF, CVA 2009, See EMR. Resting ECG: SR w/ BBB and 1 degree HB; and frequent PVCs. Resting Heart Rate: 87 bpm Resting Blood Pressure: 148/61mmHg Nurse/Tech Notes Lungs CTA, Heart tones regular. Consent: The procedure was explained to the patient in lay terms. Informed consent was witnessed. Angelo eout was entered into [employer]. History and Stress Test performed by RT Zhang RobertsR) (N) Pharm. Details Pharmacologic stress testing was performed using 0.4mg per 5ml of regadenoson given intravenously ove r 7-10 seconds. Stress Symptoms Nausea; resolved by the completion of recovery stage. POST EXERCISE Reason for Termination: Infusion complete Max HR: 101 bpm Max Blood Pressure: 137/57mmHg Blood Pressure response to exercise: Normal blood pressure response during stress. Heart Rate response to exercise: WNL Chest Pain: No. Arrhythmia: Yes. Frequent PVCs, the PVCs were noted prior to begining of study. ST Change: No. INTERPRETATION Stress EKG Conclusion: The baseline EKG shows a sinus rhythm with nonspecific ST-T wave changes and P VCs. The stress EKG shows no significant change from baseline. No EKG evidence of stress-induced ischemia. Imaging Protocol IMAGE PROTOCOL: Rest Tc-99m/stress Tc-99m 1 day Rest: Stress: Viability: Radiopharm.Tc99m YslftamlfSe75f Sestamibi Dose9.8mCi 31.2mCi Img Date 05/31/2021 05/31/2021 Inj-Img Hazf66xos. 60min. Rest Admin Site:IV - Right ForearmAdministrator:Akiko Fine, RT (R)(N) Stress Admin Site: IV - Right ForearmAdministrator: Akiko Fine RT (R)(N) STRESS DATA End Diast. Vol.160.0mlAv. Heart Rate94.0bpm End Syst. Vol.75.0mlCO Index BSA8.0L/min Myocardial Mcrr894.0gEject. Vuckpetd94.0% Stress Rates Pk. Fill Rate3.43EDV/secLVtime Pk. Fill 169.33msec Pk. Empty Rate3.65ESV/secLVtime Pk. Lukrr747.46msec / Pk. Fill0.95EDV/sec Stress Scores Regional WT2.00Summed WT27.00 Regional WM0.00Summed WM8.00 LV Perfusion The stress scans showed no significant defects. The rest scans showed no significant defects. Nuclear imaging showed no reversible ischemia or infarct. Wall Motion Left ventricular systolic function is at the lower limits of normal with no regional wall motion abno rmalities and an ejection fraction of 53%. LV Perf. Quant 17 Seg. SSS0.00 17 Seg. SRS0.00 17 Seg. SDS0.00 Stress Defect Extent (% LAD)0.00Rest Defect Extent (% LAD)0.00Rev. Defect Extent (% LAD)0.00 Stress Defect Extent (% LCX) 0.00Rest Defect Extent (% LCX)0.00Rev. Defect Extent (% LCX)0.00 Stress Defect Extent (% RCA)0.00Rest Defect Extent (% RCA)0.00Rev. Defect Extent (% RCA)0.00 Stress Defect Extent (% VELMA)0.00Rest Defect Extent (% VELMA)0.00Rev. Defect Extent (% VELMA)0.00 Conclusion 1. Abnormal resting EKG but no EKG evidence of stress-induced ischemia. 2. Nuclear imaging shows no reversible ischemia or infarct. 3. LV systolic function at the lower limits of normal with an ejection fraction of 53%. 4. Moderate to moderately low risk Lexiscan nuclear stress test. Signed by : Sandi Casanova MD Electronically Approved : 06/03/2021 13:05:41
== END ==
LOC: NM 09:49
PROVIDERS: ATTEND Internal Medicine Cardiovascular Disease
DX: R94.31 Abnormal electrocardiogram [ECG] [EKG] (principal); I25.10 Atherosclerotic heart disease of native coronary artery without angina pectoris
CPT/HCPCS: 78452; 93017; A9500; J2785

== ENCOUNTER → 2021-09-27 | Outpatient (CLI) | payer OTHER, MEDICAID ==
[~2021-09-27] MED LIST changes: -REGADENOSON 0.4 MG/5 ML DISP.SYRIN. IV ONE
--- NOTE | 2021-09-27 16:56 | CARD ---
MR#: [id number] Date of Study: 09/27/2021 Ordering Physician: SANDI MORROW, Referring Physician: SANDI MORROW, Tech: Lemuel Hartman [facility] APPROVED REPORT EXAM: Two-dimensional and M-mode echocardiogram with Doppler and color Doppler. Other Information Quality : GoodHR: 69bpm Rhythm : NSR INDICATION Cardiomyopathy RISK FACTORS Hypertension Hyperlipidemia Diabetes 2D DIMENSIONS Left Atrium(2D)4.8 (1.6-4.0cm)IVSd1.2 (0.7-1.1cm) Aortic Root(2D)2.8 (2.0-3.7cm)LVDd4.4 (3.9-5.9cm) LVOT Diameter2.2 (1.8-2.4cm)PWd1.3 (0.7-1.1cm) LA Vbrtag92 (18-58mL)LVDs3.2 (2.5-4.0cm) FS (%) 28.0 %SV48.9 ml LVEF(%)54.4 (>50%) Aortic Valve AoV Peak Serafin.145.6cm/sAoV VTI28.0cm AO Peak GR.8.5mmHgLVOT Peak Serafin.97.5cm/s AO Mean GR.4mmHgAVA (VMAX)2.62cm2 Mitral Valve MV E Vaxmesmt98.8cm/sMV E Peak Gr.4mmHg MV DECEL [id number] A Gcouiamv56.2cm/s MV E Mean Gr.2mmHgE/A Ratio0.9 Pulmonary Valve PV Peak Rqmjengd423.2cm/s Tricuspid Valve TR P. Bkokputp323qx/sTR Peak Gr.29mmHg Pulmonary Vein S1 Rmolysea76.4cm/sD2 Nmvodvth96.4cm/s LEFT VENTRICLE The left ventricle is normal size. There is mild concentric left ventricular hypertrophy. The systoli c function is moderately impaired. The Ejection Fraction is 35-40%. There is global hypokinesis of th e left ventricle. Tissue Doppler imaging reveals abnormal left ventricular diastolic dysfunction. No left ventricle thrombus noted on this study. There is no ventricular septal defect visualized. There is no left ventricular aneurysm. There is no mass noted in the left ventricle. RIGHT VENTRICLE The right ventricle is normal size. There is normal right ventricular wall thickness. The right ventr icular systolic function is normal. ATRIA The left atrium is moderately dilated. The right atrium size is normal. The interatrial septum is int act with no evidence for an atrial septal defect or patent foramen ovale as noted on 2-D or Doppler i maging. AORTIC VALVE The aortic valve is normal in structure and function. Doppler and Color Flow revealed trace aortic re gurgitation. There is no significant aortic valvular stenosis. There is no aortic valvular vegetation . MITRAL VALVE The mitral valve is thickened but opens well. There is no evidence of mitral valve prolapse. There is no mitral valve stenosis. Doppler and Color-flow revealed mild mitral regurgitation. TRICUSPID VALVE The tricuspid valve is normal in structure and function. Doppler and Color Flow revealed trace to mil d tricuspid regurgitation. The PA pressure was estimated at 35 mmHg. There is no tricuspid valve prol apse or vegetation. There is no tricuspid valve stenosis. PULMONIC VALVE There is mild pulmonic regurgitation. There is no pulmonic valvular stenosis. GREAT VESSELS The aortic root is normal in size. The ascending aorta is normal in size. The IVC is normal in size a nd collapses >50% with inspiration. PERICARDIAL EFFUSION There is no pleural effusion. There is no evidence of significant pericardial effusion. Critical Notification Critical Value: No <Conclusion> The systolic function is moderately impaired. The Ejection Fraction is 35-40%. There is global hypokinesis of the left ventricle. Doppler and Color-flow revealed mild mitral regurgitation. Signed by : Delmar Alas, Electronically Approved : 09/27/2021 16:55:48
== END ==
LOC: ECHO 12:54
PROVIDERS: ATTEND Internal Medicine Cardiovascular Disease
DX: I08.8 Other rheumatic multiple valve diseases (principal); I25.5 Ischemic cardiomyopathy
CPT/HCPCS: 93306; C8929